=== PATIENT | female | born 1960 | race Caucasian/White ===

== ENCOUNTER 2017-01-01 18:40 | Emergency (ER) | payer MEDICAID ==
[2017-01-01] MEDS: IPRATROPIUM/ALBUTEROL (0.5MG/3MG) NEB INH ONE (19:50)
[2017-01-01 19:54] LABS: BASO % 0.3 % (0-6); EOS % 2.2 % (0-6); GRAN % 68.8 % (47-80); HEMATOCRIT 28.7 % (35.0-47.0); LYMPH % 19.7 % (16-45); MEAN CELL VOLUME 98.6 fl (81-97); MEAN CORPUSCULAR HEMOGLOBIN 30.9 pg (27-33); MEAN CORPUSCULAR HGB CONC 31.4 g/dl (32-36); MEAN PLATELET VOLUME 10.2 fl (7.4-10.4); PLATELET COUNT 320 K/uL (130-400); RED BLOOD COUNT 2.91 M/uL (3.80-5.40); RED CELL DISTRIBUTION WIDTH 13.3 % (11.5-14.5); WHITE BLOOD COUNT W/O DIFF 7.8 K/uL (4.2-12.2)
[2017-01-01] MEDS: METHYLPREDNISOLONE PF 125MG/VIAL IVP ONE (19:59)
[2017-01-01 20:10] LABS: BLOOD UREA NITROGEN 61.5 mg/dL (12.6-42.6)
[2017-01-01 20:12] LABS: INR 5.26; PROTHROMBIN TIME (PATIENT) 57.8 SECONDS (9.5-12.1)
[2017-01-01] MEDS: 0.9 % SODIUM CHLORIDE 1,000 ML BAG IV ONE (20:50)
--- NOTE | 2017-01-01 21:08 | Emergency Department Record ---
History of Present Illness - General Chief Complaint: Cough Stated Complaint: COUGH,DONA Time Seen by Provider: 01/01/17 19:41 Source: Patient Mode of Arrival: Ambulatory Limitations: No limitations - History of Present Illness Initial Comments: pt has been having green productive cough, sob. MD Complaint: Cough, Fever Onset/Timin -: Week(s) Severity: Moderate Severity scale (1-10): 7 Consistency: Intermittent Context: Sick contacts Associated Symptoms: Cough, Shortness of breath - Related Data Previous Rx's Medication Instructions Recorded Albuterol Sulfate [Ventolin Hfa] 1 - 2 puff IH .EVERY 4-6 HOURS PRN 12/03/14 #1 inhaler Cephalexin [Keflex] 500 mg PO TID #20 cap 01/01/17 Prednisone [Prednisone 20Mg] 20 mg PO Q12HR #8 tab 01/01/17 Allergies Allergy/AdvReac Type Severity Reaction Status Date / Time No Known Allergies Allergy PT UNSURE Verified 01/01/17 18:51 OF REACTION Travel Screening - Travel/Exposure Within Last 30 Days Have you traveled within the last 30 days?: No - Travel/Exposure Within Last Year Have you traveled outside the [place] in the last year?: No - Additonal Travel Details Have you been exposed to anyone with a communicable illness?: No - Travel Symptoms Symptom Screening: None Review of Systems Reviewed: No additional complaints except as noted below Constitutional: Reports: As per HPI. Denies: Chills, Fever, Malaise, Night sweats, Weakness, Weight change Eyes: Reports: As per HPI. Denies: Eye discharge, Eye pain, Photophobia, Vision change ENT: Reports: As per HPI. Denies: Congestion, Dental pain, Ear pain, Epistaxis , Hearing loss, Throat pain Respiratory: Reports: As per HPI. Denies: Cough, Dyspnea, Hemoptysis, Stridor, Wheezes Cardiovascular: Reports: As per HPI. Denies: Arrhythmia, Chest pain, Dyspnea on exertion, Edema, Murmurs, Orthopnea, Palpitations, Paroxysmal nocturnal dyspnea, Rheumatic Fever, Syncope Endocrine: Reports: As per HPI. Denies: Fatigue, Heat or cold intolerance, Polydipsia, Polyuria Gastrointestinal: Reports: As per HPI. Denies: Abdominal pain, Constipation, Diarrhea, Hematemesis, Hematochezia, Melena, Nausea, Vomiting Genitourinary: Reports: As per HPI. Denies: Abnormal menses, Discharge, Dyspareunia, Dysuria, Frequency, Hematuria, Incontinence, Retention, Urgency Musculoskeletal: Reports: As per HPI. Denies: Arthralgia, Back pain, Gout, Joint swelling, Myalgia, Neck pain Skin: Reports: As per HPI. Denies: Bruising, Change in color, Change in hair/ nails, Lesions, Pruritus, Rash Neurological: Reports: As per HPI. Denies: Abnormal gait, Confusion, Headache, Numbness, Paresthesias, Seizure, Tingling, Tremors, Vertigo, Weakness Psychiatric: Reports: As per HPI. Denies: Anxiety, Auditory hallucinations, Depression, Homicidal thoughts, Suicidal thoughts, Visual hallucinations Hematological/Lymphatic: Reports: As per HPI. Denies: Anemia, Blood Clots, Easy bleeding, Easy bruising, Swollen glands Past Medical History - SOCIAL HISTORY Smoking Status: Former smoker Alcohol Use: None Drug Use: None - RESPIRATORY Hx Respiratory Disorders: Yes Hx Bronchitis: Yes Hx COPD: Yes - CARDIOVASCULAR Hx Cardio Disorders: Yes Hx Irregular Heartbeat: Yes Comment:: A-Fib - NEURO Hx Neuro Disorders: No - GI Hx GI Disorders: Yes Hx Reflux: Yes - Hx Genitourinary Disorders: No - ENDOCRINE Hx Endocrine Disorders: No - MUSCULOSKELETAL Hx Musculoskeletal Disorders: Yes - PSYCH Hx Psych Problems: Yes Hx Anxiety: Yes Hx Depression: Yes - HEMATOLOGY/ONCOLOGY Hx Hematology/Oncology Disorders: No Family Medical History Any Significant Family History?: Yes Hx Diabetes: Brother/Sister Hx Heart Disease: Mother Physical Exam - General General Appearance: Alert, Oriented x3, Cooperative, Mild distress - Head Head exam: Normal inspection - Eye Eye exam: Normal appearance, PERRL, EOMI Pupils: Normal accommodation - ENT ENT exam: Normal exam, Mucous membranes moist, Normal external ear exam, Normal orophraynx Ear exam: Normal external inspection. negative: External canal tenderness Nasal Exam: Normal inspection. negative: Discharge, Sinus tenderness Mouth exam: Normal external inspection, Tongue normal Teeth exam: Normal inspection. negative: Dental caries Throat exam: Normal inspection. negative: Tonsillar erythema, Tonsillar exudate - Neck Neck exam: Normal inspection, Full ROM. negative: Tenderness - Respiratory Respiratory exam: Normal lung sounds bilaterally. negative: Respiratory distress - Cardiovascular Cardiovascular Exam: Normal rhythm, Normal heart sounds, Tachycardia - GI/Abdominal GI/Abdominal exam: Soft, Normal bowel sounds. negative: Tenderness - Rectal Rectal exam: Deferred - exam: Deferred - Extremities Extremities exam: Normal inspection, Full ROM, Normal capillary refill. negative: Tenderness - Back Back exam: Reports: Normal inspection, Full ROM. Denies: Muscle spasm, Rash noted, Tenderness - Neurological Neurological exam: Alert, CN II-XII intact, Normal gait, Oriented X3 - Psychiatric Psychiatric exam: Normal affect, Normal mood - Skin Skin exam: Dry, Intact, Normal color, Warm Course Vital Signs 01/01/17 01/01/17 01/01/17 18:56 19:36 19:50 Temperature 98.6 F Pulse Rate 126 H 116 H Pulse Rate [ 117 H Director Regulatory Agency ] Respiratory 20 24 16 Rate Blood Pressure 103/82 Blood Pressure 103/71 [Left Arm] Pulse Ox 97 99 99 01/01/17 01/01/17 20:13 20:45 Temperature Pulse Rate Pulse Rate [ 115 H 114 H Director Regulatory Agency ] Respiratory 23 20 Rate Blood Pressure Blood Pressure 99/68 98/66 [Left Arm] Pulse Ox 100 100 Medical Decision Making - Lab Data Result diagrams: 01/01/17 19:05 01/01/17 19:05 Lab Results 01/01/17 01/01/17 01/01/17 Range/Units 19:05 19:05 19:05 WBC 7.8 (4.2-12.2) K/uL RBC 2.91 L (3.80-5.40) M/uL Hgb 9.0 L (11.6-16.0) gm/dl Hct 28.7 L (35.0-47.0) % MCV 98.6 H (81-97) fl MCH 30.9 (27-33) pg MCHC 31.4 L (32-36) g/dl RDW 13.3 (11.5-14.5) % Plt Count 320 (130-400) K/uL MPV 10.2 (7.4-10.4) fl Gran % 68.8 (47-80) % Lymphocytes % 19.7 (16-45) % Monocytes % 9.0 (0-9) % Eosinophils % 2.2 (0-6) % Basophils % 0.3 (0-6) % PT 57.8 H (9.5-12.1) SECONDS INR 5.26 H* Sodium 140 (136-145) mmol/L Potassium 4.3 (3.4-4.5) mmol/L Chloride 99 (98-107) mmol/L Carbon Dioxide 30.0 H (22-29) mmol/L Anion Gap 11.0 (7-16) BUN 61.5 H (12.6-42.6) mg/dL Creatinine 2.0 H (0.5-0.9) mg/dL Estimated GFR 27 mL/min Random Glucose 96 (74-109) mg/dL Calcium 9.2 (8.6-10.0) mg/dL Disposition Disposition: Discharge Clinical Impression: Acute bacterial bronchitis, Renal insufficiency COPD (chronic obstructive pulmonary disease) Qualifiers: COPD type: emphysema Emphysema type: unspecified Qualified Code(s): J43.9 - Emphysema, unspecified Anemia Qualifiers: Anemia type: unspecified type Qualified Code(s): D64.9 - Anemia, unspecified Coumadin toxicity Qualifiers: Encounter type: initial encounter Injury intent: accidental or unintentional Qualified Code(s): T45.511A - Poisoning by anticoagulants, accidental ( unintentional), initial encounter Disposition: Home, Self-Care Condition: (2) Stable Instructions: Acute Bronchitis (ED), COPD (Chronic Obstructive Pulmonary Disease) (ED), Anemia (ED), Chronic Kidney Disease (ED), Warfarin (By mouth) Additional Instructions: do not take coumadin tonight. skip dose. follow up with dr segura in the morning and with [facility]ist. return sooner if worse. have repeat PT in 2 days. Prescriptions: Prednisone [Prednisone 20Mg] 20 mg PO Q12HR #8 tab Cephalexin [Keflex] 500 mg PO TID #20 cap Quality - Quality Measures Quality Measures: N/A - Blood Pressure Screening Does Patient Have Any of the Following: No Blood Pressure Classification: Pre-Hypertensive BP Reading Systolic Measurement: 103 Diastolic Measurement: 82 Screening for High Blood Pressure: < Pre-Hypertensive BP, F/U Documented > [ G8950] Pre-Hypertensive Follow-up Interventions: Referral to alternative/primary care provider.
[2017-01-01] MEDS: CEPHALEXIN 500 MG CAPSULE PO STA (21:50)
--- NOTE | 2017-01-02 14:36 | RADIOLOGY REPORT ---
EXAM: CHEST, TWO VIEWS HISTORY: PRODUCTIVE COUGH AND DYSPNEA FOR THREE DAYS. TECHNIQUE: Two views of the chest were obtained. Comparison: 08/01/07. FINDINGS: The cardiomediastinal silhouette is stable. The lungs and pleural spaces are clear. IMPRESSION: STABLE CHEST EXAMINATION. JOB NUMBER: [id number] MTDD
== END 2017-01-01 22:01 | disposition home or self-care (01) ==
LOC: ER 18:40
DX: T45.515A Adverse effect of anticoagulants, initial encounter (principal); J20.8 Acute bronchitis due to other specified organisms; J43.9 Emphysema, unspecified; D64.9 Anemia, unspecified; R06.02 Shortness of breath; N28.9 Disorder of kidney and ureter, unspecified; I48.91 Unspecified atrial fibrillation; Z87.891 Personal history of nicotine dependence
CPT/HCPCS: 71020; 80048; 85025; 85610; 94640; 96374; 99284; J2930; J7030

== ENCOUNTER 2017-04-10 09:48 | Emergency (ER) | payer MEDICAID ==
--- NOTE | 2017-04-10 10:36 | Emergency Department Record ---
History of Present Illness - General Chief complaint: ENT Stated complaint: SORE THROAT Time Seen by Provider: 04/10/17 10:19 Source: Patient, RN notes reviewed Mode of Arrival: Ambulatory - History of Present Illness Initial comments: productive sputum and cough and was on zpak one week ago and she is on prophlaxic azithromycin every other day by Pulmonary Dr. Freedman. She also saw urgent caret in [place] dec 9 and [facility] one week ago. strep screen and mono spot negative one week ago. Home oxygen 2 litters per minute and stopped smoking about 10 years ago. Onset/Timin -: Week(s) Location: Throat Severity: Moderate Quality: Aching, Sharp Consistency: Constant Worsens with: Swallowing - Related Data Home Medications Medication Instructions Recorded Confirmed Last Taken Budesonide/Formoterol Fumarate 1 puff IH BID 04/10/17 04/10/17 1 Day Ago [Symbicort 160-4.5 Mcg Inhaler] ~04/09/17 Umeclidinium [place] [Incruse 1 puff IH DAILY 04/10/17 04/10/17 1 Day Ago Ellipta] ~04/09/17 Previous Rx's Medication Instructions Recorded Albuterol Sulfate [Ventolin Hfa] 1 - 2 puff IH .EVERY 4-6 HOURS PRN 12/03/14 #1 inhaler Cephalexin [Keflex] 500 mg PO QID #40 cap 04/10/17 Prednisone [Prednisone 10Mg] 10 mg PO ASDIR #30 tab 04/10/17 Allergies Allergy/AdvReac Type Severity Reaction Status Date / Time No Known Allergies Allergy PT UNSURE Verified 04/10/17 10:05 OF REACTION Travel Screening - Travel/Exposure Within Last 30 Days Have you traveled within the last 30 days?: No - Travel/Exposure Within Last Year Have you traveled outside the [place] in the last year?: No - Additonal Travel Details Have you been exposed to anyone with a communicable illness?: No - Travel Symptoms Symptom Screening: None Review of Systems Reviewed: No additional complaints except as noted below Constitutional: Reports: As per HPI. Denies: Chills, Fever, Malaise, Night sweats, Weakness, Weight change Eyes: Reports: As per HPI. Denies: Eye discharge, Eye pain, Photophobia, Vision change ENT: Reports: As per HPI. Denies: Congestion, Dental pain, Ear pain, Epistaxis , Hearing loss, Throat pain Respiratory: Reports: As per HPI. Denies: Cough, Dyspnea, Hemoptysis, Stridor, Wheezes Cardiovascular: Reports: As per HPI. Denies: Arrhythmia, Chest pain, Dyspnea on exertion, Edema, Murmurs, Orthopnea, Palpitations, Paroxysmal nocturnal dyspnea, Rheumatic Fever, Syncope Endocrine: Reports: As per HPI. Denies: Fatigue, Heat or cold intolerance, Polydipsia, Polyuria Gastrointestinal: Reports: As per HPI. Denies: Abdominal pain, Constipation, Diarrhea, Hematemesis, Hematochezia, Melena, Nausea, Vomiting Genitourinary: Reports: As per HPI. Denies: Abnormal menses, Discharge, Dyspareunia, Dysuria, Frequency, Hematuria, Incontinence, Retention, Urgency Musculoskeletal: Reports: As per HPI. Denies: Arthralgia, Back pain, Gout, Joint swelling, Myalgia, Neck pain Skin: Reports: As per HPI. Denies: Bruising, Change in color, Change in hair/ nails, Lesions, Pruritus, Rash Neurological: Reports: As per HPI. Denies: Abnormal gait, Confusion, Headache, Numbness, Paresthesias, Seizure, Tingling, Tremors, Vertigo, Weakness Psychiatric: Reports: As per HPI. Denies: Anxiety, Auditory hallucinations, Depression, Homicidal thoughts, Suicidal thoughts, Visual hallucinations Hematological/Lymphatic: Reports: As per HPI. Denies: Anemia, Blood Clots, Easy bleeding, Easy bruising, Swollen glands Past Medical History - SOCIAL HISTORY Smoking Status: Former smoker Alcohol Use: None Drug Use: None - RESPIRATORY Hx Respiratory Disorders: Yes Hx Bronchitis: Yes Hx COPD: Yes Hx Dyspnea: Yes Hx Pneumonia: Yes - CARDIOVASCULAR Hx Cardio Disorders: Yes Hx Hypertension: Yes Hx Irregular Heartbeat: Yes Comment:: A-Fib - NEURO Hx Neuro Disorders: No - GI Hx GI Disorders: Yes Hx Reflux: Yes - Hx Genitourinary Disorders: No - ENDOCRINE Hx Endocrine Disorders: No - MUSCULOSKELETAL Hx Musculoskeletal Disorders: Yes - PSYCH Hx Psych Problems: Yes Hx Anxiety: Yes Hx Depression: Yes - HEMATOLOGY/ONCOLOGY Hx Hematology/Oncology Disorders: No Family Medical History Any Significant Family History?: Yes Hx Diabetes: Brother/Sister Hx Heart Disease: Mother Physical Exam - General General Appearance: Alert, Oriented x3, Cooperative, Mild distress - Head Head exam: Normal inspection - Eye Eye exam: Normal appearance, PERRL Pupils: Normal accommodation - ENT ENT exam: Normal exam, Mucous membranes moist, Normal external ear exam, Normal orophraynx, TM's normal bilaterally Ear exam: Normal external inspection. negative: External canal tenderness Nasal Exam: Normal inspection. negative: Discharge, Sinus tenderness Mouth exam: Normal external inspection, Tongue normal Teeth exam: Normal inspection. negative: Dental caries Throat exam: Normal inspection. negative: Tonsillar erythema, Tonsillar exudate - Neck Neck exam: Normal inspection, Full ROM. negative: Tenderness - Respiratory Respiratory exam: Normal lung sounds bilaterally. negative: Respiratory distress - Cardiovascular Cardiovascular Exam: Regular rate, Normal rhythm, Normal heart sounds - GI/Abdominal GI/Abdominal exam: Soft, Normal bowel sounds. negative: Tenderness - Rectal Rectal exam: Deferred - exam: Deferred - Extremities Extremities exam: Normal inspection, Full ROM, Normal capillary refill. negative: Tenderness - Back Back exam: Reports: Normal inspection, Full ROM. Denies: Muscle spasm, Rash noted, Tenderness - Neurological Neurological exam: Alert, Normal gait, Oriented X3, Reflexes normal - Psychiatric Psychiatric exam: Normal affect, Normal mood - Skin Skin exam: Dry, Intact, Normal color, Warm Course Vital Signs 04/10/17 09:58 Temperature 97.7 F Pulse Rate 121 H Respiratory 22 Rate Blood Pressure 173/87 Pulse Ox 96 Disposition Clinical Impression: Bronchitis, COPD (chronic obstructive pulmonary disease) with acute bronchitis Disposition: Home, Self-Care Condition: (1) Good Instructions: Acute Bronchitis (ED), COPD (Chronic Obstructive Pulmonary Disease) (ED) Additional Instructions: follow up with primary in one week [place] if worse Prescriptions: Cephalexin [Keflex] 500 mg PO QID #40 cap Prednisone [Prednisone 10Mg] 10 mg PO ASDIR #30 tab Forms: Patient Portal Access Time of Disposition: 11:32 Quality - Quality Measures Quality Measures: N/A - Blood Pressure Screening Does Patient Have Any of the Following: No Blood Pressure Classification: Pre-Hypertensive BP Reading Systolic Measurement: 173 Diastolic Measurement: 87 Screening for High Blood Pressure: < Pre-Hypertensive BP, F/U Documented > [ G8950] Pre-Hypertensive Follow-up Interventions: Referral to alternative/primary care provider. First Hypertensive Follow-up Interventions: Referral to alternative/primary care provider.
[2017-04-10] MEDS ORDERED: PREDNISONE 20 MG TAB PO ONE (11:01)
[2017-04-10] MEDS ORDERED: CEPHALEXIN 500 MG CAPSULE PO STA ×2 (11:01→11:36)
[2017-04-10] MEDS ORDERED: ACETAMINOPHEN 500 MG TABLET PO ONE (11:38)
--- NOTE | 2017-04-11 06:51 | RADIOLOGY REPORT ---
EXAM: CHEST 2 VIEWS HISTORY: WORSENING PRODUCTIVE COUGH. TECHNIQUE: PA and lateral upright views of the chest were obtained. COMPARISON: January 01, 2017. FINDINGS: The heart, mediastinum, and pulmonary vasculature are normal. The lungs are emphysematous. There are no acute infiltrates or effusions. There is no pneumothorax. The bones appear intact. IMPRESSION: 1. STABLE EMPHYSEMATOUS CHANGES. 2. NO ACUTE CHEST PATHOLOGY. JOB NUMBER: [id number] MTDD
== END 2017-04-10 11:49 | disposition home or self-care (01) ==
LOC: ER 09:48
DX: J20.9 Acute bronchitis, unspecified (principal); J44.0 Chronic obstructive pulmonary disease with (acute) lower respiratory infection; I48.91 Unspecified atrial fibrillation; I10 Essential (primary) hypertension; Z87.891 Personal history of nicotine dependence
CPT/HCPCS: 71020; J7512; 99283

== ENCOUNTER 2017-04-17 18:50 | Emergency (ER) | payer MEDICAID ==
--- NOTE | 2017-04-17 19:36 | Emergency Department Record ---
History of Present Illness - General Chief Complaint: Cough Stated Complaint: COUGH,VILLA DONA Time Seen by Provider: 04/17/17 19:34 Source: Patient Mode of Arrival: Ambulatory - History of Present Illness Initial Comments: The patient has been sick with bronchitis since 03-23-17. She was seen and given 10 days of keflex and prednisone of which she has 4 days left. She states she is not better, still is SOB, has night sweats, chills , no fever, but thick green sputum and a "bad cough." She states her ankles are both slightly more swollen than usual. MD Complaint: Cough Onset/Timin -: Month(s) - Related Data Previous Rx's Medication Instructions Recorded Albuterol Sulfate [Ventolin Hfa] 1 - 2 puff IH .EVERY 4-6 HOURS PRN 12/03/14 #1 inhaler Cephalexin [Keflex] 500 mg PO QID #40 cap 04/10/17 Prednisone [Prednisone 10Mg] 10 mg PO ASDIR #30 tab 04/10/17 Allergies Allergy/AdvReac Type Severity Reaction Status Date / Time No Known Allergies Allergy PT UNSURE Verified 04/10/17 10:05 OF REACTION Travel Screening - Travel/Exposure Within Last 30 Days Have you traveled within the last 30 days?: No Review of Systems Reviewed: No additional complaints except as noted below Constitutional: Reports: As per HPI. Denies: Chills, Fever, Malaise, Night sweats, Weakness, Weight change Eyes: Reports: As per HPI. Denies: Eye discharge, Eye pain, Photophobia, Vision change ENT: Reports: As per HPI. Denies: Congestion, Dental pain, Ear pain, Epistaxis , Hearing loss, Throat pain Respiratory: Reports: As per HPI. Denies: Cough, Dyspnea, Hemoptysis, Stridor, Wheezes Cardiovascular: Reports: As per HPI. Denies: Arrhythmia, Chest pain, Dyspnea on exertion, Edema, Murmurs, Orthopnea, Palpitations, Paroxysmal nocturnal dyspnea, Rheumatic Fever, Syncope Endocrine: Reports: As per HPI. Denies: Fatigue, Heat or cold intolerance, Polydipsia, Polyuria Gastrointestinal: Reports: As per HPI. Denies: Abdominal pain, Constipation, Diarrhea, Hematemesis, Hematochezia, Melena, Nausea, Vomiting Genitourinary: Reports: As per HPI. Denies: Abnormal menses, Discharge, Dyspareunia, Dysuria, Frequency, Hematuria, Incontinence, Retention, Urgency Musculoskeletal: Reports: As per HPI. Denies: Arthralgia, Back pain, Gout, Joint swelling, Myalgia, Neck pain Skin: Reports: As per HPI. Denies: Bruising, Change in color, Change in hair/ nails, Lesions, Pruritus, Rash Neurological: Reports: As per HPI. Denies: Abnormal gait, Confusion, Headache, Numbness, Paresthesias, Seizure, Tingling, Tremors, Vertigo, Weakness Psychiatric: Reports: As per HPI. Denies: Anxiety, Auditory hallucinations, Depression, Homicidal thoughts, Suicidal thoughts, Visual hallucinations Hematological/Lymphatic: Reports: As per HPI. Denies: Anemia, Blood Clots, Easy bleeding, Easy bruising, Swollen glands Past Medical History - SOCIAL HISTORY Smoking Status: Former smoker Alcohol Use: None Drug Use: None - RESPIRATORY Hx Respiratory Disorders: Yes Hx Bronchitis: Yes Hx COPD: Yes Hx Dyspnea: Yes Hx Pneumonia: Yes - CARDIOVASCULAR Hx Cardio Disorders: Yes Hx Hypertension: Yes Hx Irregular Heartbeat: Yes Comment:: A-Fib - NEURO Hx Neuro Disorders: No - GI Hx GI Disorders: Yes Hx Reflux: Yes - Hx Genitourinary Disorders: No - ENDOCRINE Hx Endocrine Disorders: No - MUSCULOSKELETAL Hx Musculoskeletal Disorders: Yes - PSYCH Hx Psych Problems: Yes Hx Anxiety: Yes Hx Depression: Yes - HEMATOLOGY/ONCOLOGY Hx Hematology/Oncology Disorders: No Family Medical History Any Significant Family History?: Yes Hx Diabetes: Brother/Sister Hx Heart Disease: Mother Physical Exam - General General Appearance: Alert, Oriented x3, Cooperative, Mild distress (fatigued, breathless speech) - Head Head exam: Normal inspection - Eye Eye exam: Normal appearance, PERRL Pupils: Normal accommodation - ENT ENT exam: Normal exam, Mucous membranes moist, Normal external ear exam, Normal orophraynx, TM's normal bilaterally Ear exam: Normal external inspection. negative: External canal tenderness Nasal Exam: Normal inspection. negative: Discharge, Sinus tenderness Mouth exam: Normal external inspection, Tongue normal Teeth exam: Normal inspection. negative: Dental caries Throat exam: Normal inspection. negative: Tonsillar erythema, Tonsillar exudate - Neck Neck exam: Normal inspection, Full ROM. negative: Lymphadenopathy, Meningismus , Tenderness - Respiratory Respiratory exam: Decreased breath sounds, Prolonged expiratory. negative: Accessory muscle use, Respiratory distress - Cardiovascular Cardiovascular Exam: Normal rhythm, Normal heart sounds, Tachycardia - GI/Abdominal GI/Abdominal exam: Soft, Normal bowel sounds. negative: Tenderness - Rectal Rectal exam: Heme (+) stool (normal brown color, no masses) - exam: Deferred - Extremities Extremities exam: Normal inspection, Full ROM, Normal capillary refill, Pedal edema (trace bilateral). negative: Calf tenderness, Tenderness - Back Back exam: Reports: Normal inspection, Full ROM. Denies: CVA tenderness (R), CVA tenderness (L), Muscle spasm, Rash noted, Tenderness - Neurological Neurological exam: Alert, Normal gait, Oriented X3, Reflexes normal - Psychiatric Psychiatric exam: Normal affect, Normal mood - Skin Skin exam: Dry, Intact, Normal color, Warm Course Vital Signs 04/17/17 19:17 Temperature 97.4 F L Pulse Rate 117 H Respiratory 18 Rate Blood Pressure 157/89 Pulse Ox 95 - Reevaluation(s) Reevaluation #1: DW Dr. Sergio Kenyon at [facility] who accepts patient in transfer for direct admit. Patiient is aware and in agreement. 04/17/17 21:53 Medical Decision Making - Management Options MDM Management: Additional Work-up Planned (e.g. ADM/Transfer/OP Study) ( Transfer to [facility] for direct admit) - Data Complexity MDM Data: Labs Ordered and/or Reviewed, X-Ray Ordered and/or Reviewed (CXR parabronchital thickening consisttent with bronchitis), EKG Ordered and/or Reviewed - Lab Data Result diagrams: 04/17/17 19:35 04/17/17 19:35 - EKG Data -: EKG Interpreted by In EKG: No Acute Changes (Sinus tach at 110, no acute abnormalities.) Disposition Disposition: Transfer Clinical Impression: COPD, frequent exacerbations, Bronchitis, COPD (chronic obstructive pulmonary disease) with acute bronchitis, Renal insufficiency, Elevated LFTs, Guaiac positive stools Anemia Qualifiers: Anemia type: unspecified type Qualified Code(s): D64.9 - Anemia, unspecified Disposition: Acute Care Hospital Transfer Transfer To: [facility] 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 Hill Time Discussed w/Accepting Physician: 21:57 Condition: (2) Stable Quality - Quality Measures Quality Measures: N/A - Blood Pressure Screening Does Patient Have Any of the Following: No Blood Pressure Classification: Pre-Hypertensive BP Reading Systolic Measurement: 157 Diastolic Measurement: 89 Screening for High Blood Pressure: < Pre-Hypertensive BP, F/U Documented > [ G8950] Pre-Hypertensive Follow-up Interventions: Follow-up with rescreen every year.
[2017-04-17] MEDS ORDERED: METHYLPREDNISOLONE PF 125MG/VIAL IVP ONE (19:46)
[2017-04-17] MEDS ORDERED: IPRATROPIUM/ALBUTEROL (0.5MG/3MG) NEB INH ONE (19:46)
[2017-04-17 19:57] LABS: BASO % 0.1 % (0-6); HEMATOCRIT 29.8 % (35.0-47.0); HEMOGLOBIN 8.7 gm/dl (11.6-16.0); LYMPH % 3.7 % (16-45); MEAN CELL VOLUME 103.5 fl (81-97); MEAN CORPUSCULAR HEMOGLOBIN 30.2 pg (27-33); MEAN CORPUSCULAR HGB CONC 29.2 g/dl (32-36); MEAN PLATELET VOLUME 9.6 fl (7.4-10.4); MONO % 3.7 % (0-9); PLATELET COUNT 429 K/uL (130-400); RED BLOOD COUNT 2.88 M/uL (3.80-5.40); RED CELL DISTRIBUTION WIDTH 13.3 % (11.5-14.5); WHITE BLOOD COUNT W/O DIFF 8.2 K/uL (4.2-12.2)
[2017-04-17 20:15] LABS: ALB/GLOB RATIO 1.2 (1.1-1.8); ALBUMIN 4.1 g/dL (4.0-5.0); AST/SGOT 38 U/L (10.0-35.0); BILIRUBIN,TOTAL < 0.20 mg/dL (0.2-1.0); BLOOD UREA NITROGEN 44 mg/dL (6-20); CREATININE 2.2 mg/dL (0.5-0.9); EST GLOMERULAR FILTRATION RATE 24 mL/min; GLUCOSE,RANDOM 142 mg/dL (74-109); TOTAL PROTEIN 7.4 g/dL (6.6-8.7)
[2017-04-17 20:16] LABS: ALKALINE PHOSPHATASE 72 U/L (35-104); ALT/SGPT 51 U/L (<33)
[2017-04-17 20:22] LABS: URINE APPEARANCE CLEAR; URINE BILIRUBIN NEGATIVE (NEGATIVE); URINE BLOOD SMALL (NEGATIVE); URINE COLOR YELLOW; URINE GLUCOSE (UA) NEGATIVE (NEGATIVE); URINE KETONE NEGATIVE (NEGATIVE); URINE LEUKOCYTE ESTERASE NEGATIVE (NEGATIVE); URINE NITRITE NEGATIVE (NEGATIVE); URINE UROBILINOGEN 0.2 E.U./dL (0.20 - 1.00)
[2017-04-17 20:24] LABS: URINE BACTERIA NONE SEEN; URINE EPITHELIAL CELLS 0 - 2 (FEW); URINE WBC 0 - 2 (0-2/hpf)
[2017-04-17] MEDS ORDERED: 0.9 % SODIUM CHLORIDE 500ML 500 ML IV SCH (21:00)
[2017-04-17] MEDS ORDERED: CEFTRIAXONE SODIUM 2 GM in 0.9 % SODIUM CHLORIDE 100ML 100 ML IVPB ONE (21:27)
[2017-04-17] MEDS ORDERED: AZITHROMYCIN 500 MG TABLET PO ONE (21:27)
--- NOTE | 2017-04-18 09:46 | RADIOLOGY REPORT ---
EXAM: CHEST, TWO VIEWS HISTORY: BRONCHITIS. TECHNIQUE: Two views of the chest were obtained. FINDINGS: The cardiomediastinal silhouette is stable. The lungs and pleural spaces are clear. Linear opacity inferolateral right lung likely a skin fold given pulmonary markings extending peripherally. There is peribronchial thickening which can be seen with bronchitis. Moderate degenerative change of the thoracic spine. IMPRESSION: PERIBRONCHIAL THICKENING CONSISTENT WITH BRONCHITIS. JOB NUMBER: [id number] MTDD
== END 2017-04-17 22:45 | disposition short-term general hospital (02) ==
LOC: ER 18:50
DX: J44.1 Chronic obstructive pulmonary disease with (acute) exacerbation (principal); J20.9 Acute bronchitis, unspecified; J44.0 Chronic obstructive pulmonary disease with (acute) lower respiratory infection; R94.5 Abnormal results of liver function studies; R19.5 Other fecal abnormalities; N28.9 Disorder of kidney and ureter, unspecified; R06.00 Dyspnea, unspecified; R51 Headache; I10 Essential (primary) hypertension; I48.91 Unspecified atrial fibrillation; Z87.891 Personal history of nicotine dependence
CPT/HCPCS: 71020; 80053; 81001; 83880; 85027; 85379; 93005; 93010; 94640; 96365; 96375; 99285; J2930

== ENCOUNTER 2017-05-03 19:31 | Emergency (ER) | payer MEDICAID ==
[2017-05-03 20:23] LABS: BASO % 0.1 % (0-6); EOS % 2.2 % (0-6); GRAN % 74.2 % (47-80); HEMATOCRIT 27.4 % (35.0-47.0); LYMPH % 15.8 % (16-45); MEAN CELL VOLUME 105.4 fl (81-97); MEAN CORPUSCULAR HGB CONC 29.2 g/dl (32-36); MEAN PLATELET VOLUME 10.6 fl (7.4-10.4); MONO % 7.7 % (0-9); PLATELET COUNT 240 K/uL (130-400); RED CELL DISTRIBUTION WIDTH 14.5 % (11.5-14.5); WHITE BLOOD COUNT W/O DIFF 7.3 K/uL (4.2-12.2)
[2017-05-03 20:30] LABS: MEAN CORPUSCULAR HEMOGLOBIN 30.7 pg (27-33)
[2017-05-03 20:43] LABS: CREATININE 1.8 mg/dL (0.5-0.9)
[2017-05-03 20:44] LABS: ALBUMIN 3.9 g/dL (4.0-5.0)
[2017-05-03 20:45] LABS: ALB/GLOB RATIO 1.3 (1.1-1.8); BILIRUBIN,TOTAL 0.2 mg/dL (0.2-1.0); TOTAL PROTEIN 6.8 g/dL (6.6-8.7)
[2017-05-03] MEDS: FUROSEMIDE IV 20MG/2ML VIAL IVP ONE (22:44)
--- NOTE | 2017-05-03 22:58 | Emergency Department Record ---
History of Present Illness - General Chief complaint: Swelling of legs Stated complaint: LEG SWELLIN/SHORT OF BREATH Time Seen by Provider: 05/03/17 20:07 Source: Patient Mode of Arrival: Wheelchair Limitations: No limitations - History of Present Illness Initial comments: pt c/o increased swelling in her legs and sob. she was recently admitted to [facility] from here for renal failure. her lasix and hctz were stopped. she also states she just isnt feeling well MD Complaint: Extremity swelling Onset/Timin -: Days(s) History of Same: Yes Improves with: Nothing Worsens with: Nothing Associated Symptoms: Shortness of breath - Related Data Home Medications Medication Instructions Recorded Confirmed Last Taken Acetaminophen 500 mg PO Q6H PRN 05/03/17 05/03/17 Unknown Citalopram Hydrobromide [Celexa] 40 mg PO DAILY 05/03/17 05/03/17 Unknown Ferrous Sulfate [Iron] 325 mg PO DAILY 05/03/17 05/03/17 Unknown Metoprolol Succinate 25 mg PO DAILY 05/03/17 05/03/17 05/03/17 Previous Rx's Medication Instructions Recorded Albuterol Sulfate [Ventolin Hfa] 1 - 2 puff IH .EVERY 4-6 HOURS PRN 12/03/14 #1 inhaler Allergies Allergy/AdvReac Type Severity Reaction Status Date / Time No Known Allergies Allergy PT UNSURE Verified 04/10/17 10:05 OF REACTION Travel Screening - Travel/Exposure Within Last 30 Days Have you traveled within the last 30 days?: No - Travel Symptoms Symptom Screening: Weakness Review of Systems Reviewed: No additional complaints except as noted below Constitutional: Reports: As per HPI, Malaise, Weakness. Denies: Chills, Fever, Night sweats, Weight change Eyes: Reports: As per HPI. Denies: Eye discharge, Eye pain, Photophobia, Vision change ENT: Reports: As per HPI. Denies: Congestion, Dental pain, Ear pain, Epistaxis , Hearing loss, Throat pain Respiratory: Reports: As per HPI, Dyspnea. Denies: Cough, Hemoptysis, Stridor, Wheezes Cardiovascular: Reports: As per HPI. Denies: Arrhythmia, Chest pain, Dyspnea on exertion, Edema, Murmurs, Orthopnea, Palpitations, Paroxysmal nocturnal dyspnea, Rheumatic Fever, Syncope Endocrine: Reports: As per HPI, Fatigue. Denies: Heat or cold intolerance, Polydipsia, Polyuria Gastrointestinal: Reports: As per HPI. Denies: Abdominal pain, Constipation, Diarrhea, Hematemesis, Hematochezia, Melena, Nausea, Vomiting Genitourinary: Reports: As per HPI. Denies: Abnormal menses, Discharge, Dyspareunia, Dysuria, Frequency, Hematuria, Incontinence, Retention, Urgency Musculoskeletal: Reports: As per HPI. Denies: Arthralgia, Back pain, Gout, Joint swelling, Myalgia, Neck pain Skin: Reports: As per HPI. Denies: Bruising, Change in color, Change in hair/ nails, Lesions, Pruritus, Rash Neurological: Reports: As per HPI. Denies: Abnormal gait, Confusion, Headache, Numbness, Paresthesias, Seizure, Tingling, Tremors, Vertigo, Weakness Psychiatric: Reports: As per HPI. Denies: Anxiety, Auditory hallucinations, Depression, Homicidal thoughts, Suicidal thoughts, Visual hallucinations Hematological/Lymphatic: Reports: As per HPI, Easy bruising. Denies: Anemia, Blood Clots, Easy bleeding, Swollen glands Past Medical History - SOCIAL HISTORY Smoking Status: Former smoker - RESPIRATORY Hx Respiratory Disorders: Yes Hx Bronchitis: Yes Hx COPD: Yes Hx Dyspnea: Yes Hx Pneumonia: Yes - CARDIOVASCULAR Hx Cardio Disorders: Yes Hx Hypertension: Yes Hx Irregular Heartbeat: Yes Comment:: A-Fib - NEURO Hx Neuro Disorders: No - GI Hx GI Disorders: Yes Hx Reflux: Yes - Hx Genitourinary Disorders: No - ENDOCRINE Hx Endocrine Disorders: No - MUSCULOSKELETAL Hx Musculoskeletal Disorders: Yes - PSYCH Hx Psych Problems: Yes Hx Anxiety: Yes Hx Depression: Yes - HEMATOLOGY/ONCOLOGY Hx Hematology/Oncology Disorders: No Family Medical History Any Significant Family History?: Yes Hx Diabetes: Brother/Sister Hx Heart Disease: Mother Physical Exam - General General Appearance: Alert, Oriented x3, Cooperative, Mild distress - Head Head exam: Normal inspection - Eye Eye exam: Normal appearance, PERRL, EOMI Pupils: Normal accommodation - ENT ENT exam: Normal exam, Mucous membranes moist, Normal external ear exam, Normal orophraynx Ear exam: Normal external inspection. negative: External canal tenderness Nasal Exam: Normal inspection. negative: Discharge, Sinus tenderness Mouth exam: Normal external inspection, Tongue normal Teeth exam: Normal inspection. negative: Dental caries Throat exam: Normal inspection. negative: Tonsillar erythema, Tonsillar exudate - Neck Neck exam: Normal inspection, Full ROM. negative: Tenderness - Respiratory Respiratory exam: Normal lung sounds bilaterally. negative: Respiratory distress - Cardiovascular Cardiovascular Exam: Regular rate, Normal rhythm, Normal heart sounds - GI/Abdominal GI/Abdominal exam: Soft, Normal bowel sounds. negative: Tenderness - Rectal Rectal exam: Deferred - exam: Deferred - Extremities Extremities exam: Normal inspection, Full ROM, Normal capillary refill, Pedal edema (mild). negative: Tenderness - Back Back exam: Reports: Normal inspection, Full ROM. Denies: Muscle spasm, Rash noted, Tenderness - Neurological Neurological exam: Alert, CN II-XII intact, Normal gait, Oriented X3 - Psychiatric Psychiatric exam: Normal affect, Normal mood - Skin Skin exam: Dry, Intact, Normal color, Warm Course Vital Signs 05/03/17 05/03/17 05/03/17 19:35 21:10 22:16 Temperature 98.0 F 98.3 F Pulse Rate [ 86 100 H 85 Pulse Ox Probe] Respiratory 22 24 18 Rate Blood Pressure 158/102 163/89 [Left Arm] Blood Pressure 152/84 [Right Arm] Pulse Ox 96 100 100 - Reevaluation(s) Reevaluation #1: 05/03/17 23:24 pts renal fxn has improved and all her numbers are improved Medical Decision Making - Lab Data Result diagrams: 05/03/17 19:43 05/03/17 19:43 Lab Results 05/03/17 05/03/17 Range/Units 19:43 19:43 WBC 7.3 (4.2-12.2) K/uL RBC 2.60 L (3.80-5.40) M/uL Hgb 8.0 L (11.6-16.0) gm/dl Hct 27.4 L (35.0-47.0) % MCV 105.4 H (81-97) fl MCH 30.7 (27-33) pg MCHC 29.2 L (32-36) g/dl RDW 14.5 (11.5-14.5) % Plt Count 240 (130-400) K/uL MPV 10.6 H (7.4-10.4) fl Gran % 74.2 (47-80) % Lymphocytes % 15.8 L (16-45) % Monocytes % 7.7 (0-9) % Eosinophils % 2.2 (0-6) % Basophils % 0.1 (0-6) % Sodium 141 (136-145) mmol/L Potassium 4.2 (3.4-4.5) mmol/L Chloride 97 L (98-107) mmol/L Carbon Dioxide 34.0 H (22-29) mmol/L Anion Gap 10.0 (7-16) BUN 33 H (6-20) mg/dL Creatinine 1.8 H (0.5-0.9) mg/dL Estimated GFR 31 mL/min Random Glucose 92 (74-109) mg/dL Calcium 9.4 (8.6-10.0) mg/dL Total Bilirubin 0.20 (0.2-1.0) mg/dL AST 37 H (10.0-35.0) U/L ALT 115 H (<33) U/L Alkaline Phosphatase 93 (35-104) U/L NT-Pro-B Natriuret Pep 1614.00 H (<125) pg/mL Total Protein 6.8 (6.6-8.7) g/dL Albumin 3.9 L (4.0-5.0) g/dL Globulin 2.9 (1.4-4.8) gm/dL Albumin/Globulin Ratio 1.3 (1.1-1.8) Disposition Disposition: Discharge Clinical Impression: Renal insufficiency CHF (congestive heart failure) Qualifiers: Congestive heart failure type: unspecified congestive heart failure type Congestive heart failure chronicity: acute on chronic Qualified Code(s): I50.9 - Heart failure, unspecified Disposition: Home, Self-Care Condition: (1) Good Instructions: Impaired Kidney Function (ED) Additional Instructions: follow up with family doctor. call tomorrow. return sooner if worse. Forms: Patient Portal Access Quality - Quality Measures Quality Measures: N/A - Blood Pressure Screening Does Patient Have Any of the Following: Active Dx of HTN Blood Pressure Classification: Pre-Hypertensive BP Reading Systolic Measurement: 152 Diastolic Measurement: 84 Screening for High Blood Pressure: Patient Exclusion, Hx of HTN [[id number]]
== END 2017-05-03 23:33 | disposition home or self-care (01) ==
LOC: ER 19:31
DX: N28.9 Disorder of kidney and ureter, unspecified (principal); I11.0 Hypertensive heart disease with heart failure; I50.9 Heart failure, unspecified; J44.9 Chronic obstructive pulmonary disease, unspecified; I48.91 Unspecified atrial fibrillation; Z87.891 Personal history of nicotine dependence
CPT/HCPCS: 80053; 83880; 85025; 96374; 99284; J1940

== ENCOUNTER 2017-06-29 18:22 | Inpatient (IN) | payer MEDICAID ==
[2017-06-29] MEDS ORDERED: ALBUTEROL SULFATE (0.083%) 2.5 MG/3 ML NEB INH PRN (19:41)
[2017-06-29] MEDS ORDERED: TRAMADOL HCL 50 MG TABLET PO PRN (20:19)
[2017-06-29] MEDS ORDERED: ACETAMINOPHEN 500 MG TABLET PO PRN (20:21)
[2017-06-29] MEDS ORDERED: ZOLPIDEM TARTRATE 5 MG TABLET PO PRN (20:21)
[2017-06-29] MEDS ORDERED: METHYLPREDNISOLONE PF 125MG/VIAL IVP ONE (20:30)
[2017-06-29] MEDS: LEVOFLOXACIN 500MG IVPB 500 MG/100 ML BAG IVPB SCH (20:35)
[2017-06-29 20:38] LABS: BASO % 0.2 % (0-6); EOS % 2.6 % (0-6); GRAN % 61.4 % (47-80); HEMATOCRIT 32.6 % (35.0-47.0); HEMOGLOBIN 9.7 gm/dl (11.6-16.0); LYMPH % 27.6 % (16-45); MEAN CELL VOLUME 101.6 fl (81-97); MEAN CORPUSCULAR HEMOGLOBIN 30.2 pg (27-33); MEAN CORPUSCULAR HGB CONC 29.8 g/dl (32-36); MEAN PLATELET VOLUME 9.8 fl (7.4-10.4); MONO % 8.2 % (0-9); PLATELET COUNT 291 K/uL (130-400); RED BLOOD COUNT 3.21 M/uL (3.80-5.40); RED CELL DISTRIBUTION WIDTH 13.8 % (11.5-14.5); WHITE BLOOD COUNT W/O DIFF 8.4 K/uL (4.2-12.2)
[2017-06-29 20:49] LABS: BILIRUBIN,TOTAL < 0.20 mg/dL (0.2-1.0); BLOOD UREA NITROGEN 33 mg/dL (6-20); CREATININE 1.7 mg/dL (0.5-0.9); EST GLOMERULAR FILTRATION RATE 33 mL/min
[2017-06-29 20:50] LABS: TOTAL PROTEIN 6.5 g/dL (6.6-8.7)
[2017-06-29 20:52] LABS: GLUCOSE,RANDOM 99 mg/dL (74-109)
[2017-06-29 20:54] LABS: ALB/GLOB RATIO 1.6 (1.1-1.8); ALT/SGPT 20 U/L (<33); AST/SGOT 14 U/L (10.0-35.0)
[2017-06-29 20:55] LABS: ALKALINE PHOSPHATASE 82 U/L (35-104)
[2017-06-29] MEDS: IPRATROPIUM/ALBUTEROL (0.5MG/3MG) NEB INH SCH ×2 (21:15→21:42)
[2017-06-29] MEDS: BUSPIRONE 5 MG TABLET PO SCH (21:52)
[2017-06-29] MEDS: APIXABAN 5MG TABLET PO SCH (21:53)
[2017-06-29] MEDS: METOPROLOL TART 25 MG TABLET PO SCH (21:53)
[2017-06-29] MEDS: ATORVASTATIN 20 MG TABLET PO SCH (21:53)
[2017-06-30] MEDS: IPRATROPIUM/ALBUTEROL (0.5MG/3MG) NEB INH SCH ×6 (01:30→22:10)
[2017-06-30] MEDS: PANTOPRAZOLE SODIUM 40 MG TABLET PO SCH ×2 (06:04→16:23)
[2017-06-30] MEDS ORDERED: DALIRESP 500 MCG PO SCH (10:00)
[2017-06-30] MEDS: APIXABAN 5MG TABLET PO SCH ×2 (10:59→21:48)
[2017-06-30] MEDS: FERROUS SULFATE 325 MG TAB PO SCH (10:59)
[2017-06-30] MEDS: METOPROLOL TART 25 MG TABLET PO SCH ×2 (10:59→21:49)
[2017-06-30] MEDS: BUSPIRONE 5 MG TABLET PO SCH ×2 (10:59→21:47)
[2017-06-30] MEDS: DULOXETINE HCL 30 MG CAPSULE.DR PO SCH (11:00)
--- NOTE | 2017-06-30 11:38 | History & Physical ---
History of Present Illness - Date of Service Date of Service for History & Physical: 06/30/17 - History of Present Illness Admitting Diagnosis: Exacerbation COPD. Flu-like symptoms History of Present Illness: 56yo female with CC of increasing shortness of breath. 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 Patient presented to the [facility] after 2 days of progressive shortness of breath. she had been hospitalized in April for COPD exacerbation and again in May for CHF exacerbation. She reported having increasing cough, productive of small amounts of thin sputum and feeling more short of breath. She was having to use 3L of oxygen compared to her baseline of 2L. While in [facility], she had O2 sat of 91% on 3L with RR of 20. She had a CXR that was negative for acute infiltrate. Rapid influenza test was negative. Due to her history of severe COPD, she was admitted for IV steroids, antibiotics and continued monitoring. 06/30/17- Patient reports feeling better than yesterday but doesn't feel like she is back to her baseline. She denies chest pain, swelling in her legs, productive cough, fever, body aches. reports some mild nasal congestion but no sinus tenderness. She is getting winded easily getting up to the bathroom. She is feeling less short of breath at rest today. 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 Travel Screening - Travel/Exposure Within Last 30 Days Have you traveled within the last 30 days?: No - Travel/Exposure Within Last Year Have you traveled outside the [place] in the last year?: No - Additonal Travel Details Have you been exposed to anyone with a communicable illness?: No - Travel Symptoms Symptom Screening: Fever (GT 100.4), Joint & Muscle Aches, Weakness, Fatigue Review of Systems Constitutional: Denies: Chills, Fever, Malaise, Weakness Eyes: Denies: Eye pain ENT: Reports: Congestion. Denies: Ear pain, Throat pain Respiratory: Reports: Cough, Dyspnea, Wheezes. Denies: Stridor Cardiovascular: Reports: Dyspnea on exertion. Denies: Chest pain, Edema, Palpitations, Paroxysmal nocturnal dyspnea Gastrointestinal: Denies: Diarrhea, Nausea Musculoskeletal: Reports: Back pain (chronic) Skin: Denies: Rash Neurological: Reports: Headache (mild, generalized). Denies: Confusion, Numbness, Paresthesias, Weakness Psychiatric: Reports: Anxiety Hematological/Lymphatic: Reports: Anemia (chronic due to CKD) Past Medical History - SOCIAL HISTORY Smoking Status: Former smoker Alcohol Use: None Drug Use: None - RESPIRATORY Hx Respiratory Disorders: Yes Hx Bronchitis: Yes Hx COPD: Yes Hx Dyspnea: Yes Hx Pneumonia: Yes - CARDIOVASCULAR Hx Cardio Disorders: Yes Hx Hypertension: Yes Hx Irregular Heartbeat: Yes Comment:: A-Fib - NEURO Hx Neuro Disorders: No - GI Hx GI Disorders: Yes Hx Reflux: Yes - Hx Genitourinary Disorders: No - ENDOCRINE Hx Endocrine Disorders: No - MUSCULOSKELETAL Hx Musculoskeletal Disorders: Yes - PSYCH Hx Psych Problems: Yes Hx Anxiety: Yes Hx Depression: Yes - HEMATOLOGY/ONCOLOGY Hx Hematology/Oncology Disorders: No Family Medical History Any Significant Family History?: No Hx Diabetes: Brother/Sister Hx Heart Disease: Mother H&P Meds/Allergies - Allergies Allergies: Allergies Allergy/AdvReac Type Severity Reaction Status Date / Time No Known Allergies Allergy PT UNSURE Unverified 06/29/17 17:04 OF REACTION - Home Medications Home Medications Medication Instructions Recorded Confirmed Last Taken Metoprolol Tartrate 25 mg PO BID 06/30/17 06/30/17 Unknown Tiotropium [place] [Spiriva 2 inh INH DAILY 06/30/17 06/30/17 Unknown Respimat] Tramadol HCl 100 mg PO Q6H PRN 06/30/17 06/30/17 Unknown Previous Rx's Medication Instructions Recorded Albuterol Sulfate [Ventolin Hfa] 1 - 2 puff IH .EVERY 4-6 HOURS PRN 12/03/14 #1 inhaler Guaifenesin [Guaifenesin ER] 1,200 mg PO BID #20 tab.er.12h 07/01/17 Levofloxacin [Levaquin] 500 mg PO DAILY #3 tab 07/01/17 Prednisone [Prednisone 10Mg] 10 mg PO ASDIR #30 tab 07/01/17 - Active Medications Active Medications: Current Medications Acetaminophen (Tylenol 500mg Tab) 500 mg PO Q6H PRN PRN Reason: MILD PAIN/FEVER Albuterol Sulfate () 2.5 mg INH RESP.Q2H PRN PRN Reason: DIFFICULTY IN BREATHING Albuterol/Ipratropium (Duoneb) 3 ml INH RESP.Q4H.WA COUNTS INCLUDE 234 BEDS AT THE [facility] Last Admin: 06/30/17 11:10 Dose: 3 ml Apixaban (Eliquis) 5 mg PO BID COUNTS INCLUDE 234 BEDS AT THE [facility] Last Admin: 06/30/17 10:59 Dose: 5 mg Atorvastatin Calcium (Lipitor) 10 mg PO QHS COUNTS INCLUDE 234 BEDS AT THE [facility] Last Admin: 06/29/17 21:53 Dose: 10 mg Buspirone HCl (Buspar) 7.5 mg PO BID COUNTS INCLUDE 234 BEDS AT THE [facility] Last Admin: 06/30/17 10:59 Dose: 7.5 mg Duloxetine HCl (Cymbalta) 30 mg PO DAILY COUNTS INCLUDE 234 BEDS AT THE [facility] Last Admin: 06/30/17 11:00 Dose: 30 mg Ferrous Sulfate (Iron) 325 mg PO DAILY COUNTS INCLUDE 234 BEDS AT THE [facility] Last Admin: 06/30/17 10:59 Dose: 325 mg Levofloxacin/Dextrose (Levaquin 500mg Ivpb) 500 mg in 100 mls @ 125 mls/hr IVPB Q24H COUNTS INCLUDE 234 BEDS AT THE [facility] Stop: 07/04/17 19:46 Last Infusion: 06/29/17 21:59 Dose: Infused Metoprolol Tartrate (Lopressor) 25 mg PO BID COUNTS INCLUDE 234 BEDS AT THE [facility] Last Admin: 06/30/17 10:59 Dose: 25 mg Pantoprazole Sodium (Protonix) 40 mg PO BIDAC COUNTS INCLUDE 234 BEDS AT THE [facility] Last Admin: 06/30/17 06:04 Dose: 40 mg Patient Own Med: Daliresp ( Roflumilast) 500 Mcg 1 each PO DAILY COUNTS INCLUDE 234 BEDS AT THE [facility] Last Admin: 06/30/17 11:03 Dose: 1 each Tramadol HCl (Ultram) 100 mg PO Q6H PRN PRN Reason: Pain - General Zolpidem Tartrate (Ambien) 10 mg PO QHS PRN PRN Reason: INSOMNIA Physical Exam - Vital Signs Vital Signs: Vital Signs - Last 24 Hrs Temp Pulse Pulse Resp BP BP Pulse Ox 06/30/17 11:17 92 H 24 97 06/30/17 11:16 86 24 97 06/30/17 11:11 90 24 97 06/30/17 11:08 86 24 97 06/30/17 06:02 92 H 16 92 L 06/30/17 06:00 97.8 F 93 H 16 153/59 94 L 06/30/17 01:30 92 H 20 06/29/17 22:00 98.4 F 96 H 16 160/89 96 06/29/17 21:15 102 H 20 06/29/17 19:08 84 18 06/29/17 18:56 97.1 F L 84 18 139/87 97 - General General Appearance: Alert, Oriented x3, Cooperative, No acute distress Limitations: No limitations - Head Head exam: Normal inspection - Eye Eye exam: Normal appearance, PERRL - ENT ENT exam: Normal exam, Mucous membranes moist, Normal external ear exam, Normal orophraynx, TM's normal bilaterally - Neck Neck exam: Normal inspection, Full ROM. negative: Tenderness - Respiratory Respiratory exam: Decreased breath sounds (throughout), Prolonged expiratory, Wheezes (few expiratory wheezes). negative: Respiratory distress - Cardiovascular Cardiovascular Exam: Normal rhythm, Normal heart sounds - GI/Abdominal GI/Abdominal exam: Soft, Normal bowel sounds. negative: Tenderness - Extremities Extremities exam: Normal inspection, Full ROM, Normal capillary refill. negative: Pedal edema, Tenderness - Neurological Neurological exam: Alert, Normal gait, Oriented X3, Reflexes normal - Psychiatric Psychiatric exam: Normal affect, Normal mood Results - Labs Result Diagrams: 06/29/17 20:15 07/01/17 06:10 Labs Last 24 Hours: Laboratory Results - last 24 hr 06/29/17 06/29/17 20:15 20:15 WBC 8.4 RBC 3.21 L Hgb 9.7 L Hct 32.6 L MCV 101.6 H MCH 30.2 MCHC 29.8 L RDW 13.8 Plt Count 291 MPV 9.8 Gran % 61.4 Lymphocytes % 27.6 Monocytes % 8.2 Eosinophils % 2.6 Basophils % 0.2 Sodium 142 Potassium 4.1 Chloride 98 Carbon Dioxide 37.0 H Anion Gap 7.0 BUN 33 H Creatinine 1.7 H Estimated GFR 33 Random Glucose 99 Calcium 9.3 Total Bilirubin < 0.20 L AST 14 ALT 20 Alkaline Phosphatase 82 Total Protein 6.5 L Albumin 4.0 Globulin 2.5 Albumin/Globulin Ratio 1.6 - Imaging and Cardiology Chest x-ray Status: Report reviewed (no acute pathology) VTE H&P Assessment - Risk for VTE Risk for VTE: Yes Risk Level: High Risk Assessment Date: 06/30/17 Risk Assessment Time: 11:00 VTE Orders Placed or Will Be Placed: Yes Plan - Inpatient Certification Inpatient Certification: Admit to inpatient care: Based on my medical assessment, after consideration of patient's risk factors (age, co-morbidities and patient presenting symptoms and acuity), I expect that this patient will remain in the hospital greater than or equal to two midnights and that the services needed warrant inpatient care because: Patient Risk Factors: [age, COPD exacerbation, severe end stage COPD] Estimated length of stay: [48-72H] The patient may reasonably be expected to be discharged or transferred to a hospital within 96 hours after admission to [facility]. Services needed: [IV antibiotics, IV steroids, respiratory therapy ] Post hospital care (if known): [] I certify that my determination is in accordance with my understanding of Medicare requirements for reasonable and necessary inpatient services. 07/01/17 11:16 - Detailed Diagnosis and Plan (1) COPD exacerbation Status: Acute Base Code: J44.1 - CHRONIC OBSTRUCTIVE PULMONARY DISEASE W ( ACUTE) EXACERBATION Comment: 06/30/17- improving. CXr negative for acute infiltrate. WBC count within normal and afebrile. Rapid influenza negative. Respiratory viral panel pending. -continue solumedrol 60mg IV daily -continue levaquin 500mg IV q24H -duoneb q4H [place] -albuterol q2H prn -continuous oxygen to keep sats >92% -vitals q8H (2) CHF (congestive heart failure) Status: Acute Base Code: I50.9 - HEART FAILURE, UNSPECIFIED Comment: 06/30/17 - stable. CXr negative for pulmonary edema. LE without edema. She denies any recent weight gain. -ACEI and diuretics discontinued by nephrology. -monitor weight daily -2000cc fluid restriction (3) Renal insufficiency Status: Acute Base Code: N28.9 - DISORDER OF KIDNEY AND URETER, UNSPECIFIED Comment: 06/30/17- Stable. patient reports seeing her lead man over all dies in [employer] shop last week and gfr was 29, today up to 33. Cr of 1.7. 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 Saw nephrology about 1 week ago and they agreed with conitnuing to hold her metformin unless her egfr was consistetnly >30. BG pretty well controlled. -continue ADA diet -follow up with Dr. Pollard as outpatient for DM (5) Full code status Status: Acute Base Code: Z78.9 - OTHER SPECIFIED HEALTH STATUS Comment: 06/30- patient is full code (6) DVT prophylaxis Status: Acute Base Code: [id number] - Comment: 06/30/17- continue home dose of eliquis 5mg po bid (7) Requires continuous at home supplemental oxygen Status: Acute Base Code: Z99.81 - DEPENDENCE ON SUPPLEMENTAL OXYGEN Comment : 06/30/17- Uses 2L via [place] continuous at home. Has needed 3L to keep sats >92% with exacerbation. -continue to monitor for return to baseline
[2017-06-30] MEDS ORDERED: METHYLPREDNISOLONE PF 125MG/VIAL IVP SCH (15:45)
[2017-06-30] MEDS: LEVOFLOXACIN 500MG IVPB 500 MG/100 ML BAG IVPB SCH (20:15)
[2017-06-30] MEDS: ATORVASTATIN 20 MG TABLET PO SCH (21:48)
[2017-07-01] MEDS: IPRATROPIUM/ALBUTEROL (0.5MG/3MG) NEB INH SCH ×2 (05:59→09:50)
[2017-07-01] MEDS: PANTOPRAZOLE SODIUM 40 MG TABLET PO SCH (06:10)
[2017-07-01 06:40] LABS: CREATININE 1.6 mg/dL (0.5-0.9)
[2017-07-01] MEDS: APIXABAN 5MG TABLET PO SCH (09:23)
[2017-07-01] MEDS: FERROUS SULFATE 325 MG TAB PO SCH (09:23)
[2017-07-01] MEDS: DULOXETINE HCL 30 MG CAPSULE.DR PO SCH (09:23)
[2017-07-01] MEDS: METOPROLOL TART 25 MG TABLET PO SCH (09:24)
[2017-07-01] MEDS: BUSPIRONE 5 MG TABLET PO SCH (09:24)
--- NOTE | 2017-07-01 13:22 | Discharge Summary ---
Providers Discharge Summary Date: 07/01/17 Date of admission: 06/29/17 18:22 Expected Date of Discharge: 07/01/17 Attending physician: DALLIN KELLY Primary care physician: DALLIN KELLY Physical Exam - Vital Signs Vital Signs: Vital Signs - Last 24 Hrs Temp Pulse Pulse Resp BP Pulse Ox 07/01/17 09:00 20 07/01/17 05:59 92 H 16 07/01/17 05:34 97.0 F L 93 H 18 153/92 95 06/30/17 22:10 108 H 18 06/30/17 21:32 97.3 F L 107 H 18 164/93 96 06/30/17 21:00 18 06/30/17 17:38 91 H 19 97 06/30/17 14:15 83 17 95 06/30/17 14:00 97.7 F 89 19 150/76 95 - General General Appearance: Alert, Oriented x3, Cooperative, No acute distress Limitations: No limitations - Head Head exam: Normal inspection Head exam detail: negative: Abrasion, Contusion - Eye Eye exam: Normal appearance, PERRL - ENT ENT exam: Normal exam, Mucous membranes moist, Normal external ear exam, Normal orophraynx, TM's normal bilaterally - Neck Neck exam: Normal inspection, Full ROM. negative: Tenderness - Respiratory Respiratory exam: Decreased breath sounds, Prolonged expiratory. negative: Respiratory distress - Cardiovascular Cardiovascular Exam: Regular rate, Normal rhythm, Normal heart sounds - GI/Abdominal GI/Abdominal exam: Soft, Normal bowel sounds. negative: Tenderness - Extremities Extremities exam: Normal inspection, Full ROM, Normal capillary refill. negative: Pedal edema, Tenderness - Neurological Neurological exam: Alert, Normal gait, Oriented X3, Reflexes normal - Psychiatric Psychiatric exam: Normal affect, Normal mood Hospitalization - Hospitalization Admission Diagnosis: Exacerbation COPD. Flu-like symptoms - Problem List/Discharge Diagnosis (1) COPD exacerbation Status: Acute Base Code: J44.1 - CHRONIC OBSTRUCTIVE PULMONARY DISEASE W ( ACUTE) EXACERBATION Comment: 07/01/17- continues to improve. Patient states she feels much better than yesterday and is able to ambulate to the bathroom and down the leon without difficulty. repiratory viral panel still pending. Patient back to baseline 2L of O2. -plan to discharge home today -continue prednisone taper -continue levaquin 500mg po dailly for 3 more days -nebulizer treatment at home q4H prn sob -continuous oxygen at 2L -mucinex 1200mg po bid as needed for chest congestino -follow up with pulmonology next Monday as scheduled. (2) CHF (congestive heart failure) Status: Acute Base Code: I50.9 - HEART FAILURE, UNSPECIFIED Comment: 07/01/17 - stable. CXr negative for pulmonary edema. LE without edema. -ACEI and diuretics discontinued by nephrology. -monitor weight daily at home while on prednisone. She has scale at home. -hospital discharge follow up apt. scheduled with Molly on (3) Renal insufficiency Status: Acute Base Code: N28.9 - DISORDER OF KIDNEY AND URETER, UNSPECIFIED Comment: 07/01/17- Stable. patient reports seeing her applique sewer last week. -follow up in [facility] family practice next week (4) Full code status Status: Acute Base Code: Z78.9 - OTHER SPECIFIED HEALTH STATUS Comment: 07/01- patient is full code (5) DVT prophylaxis Status: Acute Base Code: [id number] - Comment: 07/01/17- continue home dose of eliquis 5mg po bid (6) Requires continuous at home supplemental oxygen Status: Acute Base Code: Z99.81 - DEPENDENCE ON SUPPLEMENTAL OXYGEN Comment : 07/01/17- Back to baseline of 2L via NC. - Hospitalization Course Disposition: Home, Self-Care Hospital Course: 56yo female with CC of increasing shortness of breath. 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 Patient presented to the [facility] after 2 days of progressive shortness of breath. she had been hospitalized in April for COPD exacerbation and again in May for CHF exacerbation. She reported having increasing cough, productive of small amounts of thin sputum and feeling more short of breath. She was having to use 3L of oxygen compared to her baseline of 2L. While in [facility], she had O2 sat of 91% on 3L with RR of 20. She had a CXR that was negative for acute infiltrate. Rapid influenza test was negative. Due to her history of severe COPD, she was admitted for IV steroids, antibiotics and continued monitoring. 06/30/17- Patient reports feeling better than yesterday but doesn't feel like she is back to her baseline. She denies chest pain, swelling in her legs, productive cough, fever, body aches. reports some mild nasal congestion but no sinus tenderness. She is getting winded easily getting up to the bathroom. She is feeling less short of breath at rest today. She recently saw her applique sewer and was taken off of her ACEI/HCTZ and lasix. 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 07/01/17- Patient states she continues to feel better. She has been up and to the bathroom and took a walk down the hallway without increased shortness of breath. She says yesterday she couldn't do that. She has mild cough that is occasionally productive of thin, white/clear sputum. She denies chest pain, lower extremity swelling, difficulty laying flat. She feels like she is back to her baseline. Procedures: Cardiology Procedures 06/29/17 19:41 Rag Baler .Continuous Abnormal Labs: Abnormal Lab Results 06/29/17 06/29/17 07/01/17 Range/Units 20:15 20:15 06:10 RBC 3.21 L (3.80-5.40) M/uL Hgb 9.7 L (11.6-16.0) gm/dl Hct 32.6 L (35.0-47.0) % MCV 101.6 H (81-97) fl MCHC 29.8 L (32-36) g/dl Potassium 4.9 H (3.4-4.5) mmol/L Chloride 97 L (98-107) mmol/L Carbon Dioxide 37.0 H 34.0 H (22-29) mmol/L BUN 33 H 46 H (6-20) mg/dL Creatinine 1.7 H 1.6 H (0.5-0.9) mg/dL Random Glucose 126 H (74-109) mg/dL Total Bilirubin < 0.20 L (0.2-1.0) mg/dL Total Protein 6.5 L (6.6-8.7) g/dL Condition at Discharge: (2) Stable Discharge Medications - Discharge Medications Prescriptions: Guaifenesin [Guaifenesin ER] 1,200 mg PO BID #20 tab.er.12h Levofloxacin [Levaquin] 500 mg PO DAILY #3 tab Prednisone [Prednisone 10Mg] 10 mg PO ASDIR #30 tab Home Medications: Ambulatory Orders Albuterol Sulfate [Ventolin Hfa] 1 - 2 puff IH .EVERY 4-6 HOURS PRN #1 inhaler 12/03/14 [Last Taken 1 Day Ago ~04/09/17] Roflumilast [Daliresp] 500 mcg PO DAILY tab 08/06/15 [Last Taken 1 Day Ago ~] Budesonide/Formoterol Fumarate [Symbicort 160-4.5 Mcg Inhaler] 1 puff IH BID [Last Taken 1 Day Ago ~04/09/17] Acetaminophen 500 mg PO Q6H PRN 05/03/17 [Last Taken Unknown] Ferrous Sulfate [Iron] 325 mg PO DAILY 05/03/17 [Last Taken Unknown] Metoprolol Tartrate 25 mg PO BID 06/30/17 [Last Taken Unknown] Tiotropium [place] [Spiriva Respimat] 2 inh INH DAILY 06/30/17 [Last Taken Unknown] Tramadol HCl 100 mg PO Q6H PRN 06/30/17 [Last Taken Unknown] Guaifenesin [Guaifenesin ER] 1,200 mg PO BID #20 tab.er.12h 07/01/17 [Last Taken Unknown] Levofloxacin [Levaquin] 500 mg PO DAILY #3 tab 07/01/17 [Last Taken Unknown] Prednisone [Prednisone 10Mg] 10 mg PO ASDIR #30 tab 07/01/17 [Last Taken Unknown ] Discharge Plan - Discharge Instructions Activity at Discharge: Wear Oxygen At All Times Diet at Discharge: Diabetic Diet Instructions: COPD (Chronic Obstructive Pulmonary Disease) (DC) Additional Instructions: Follow up with [facility] Inspector and Molly in [facility] family practice as scheduled. Continue Levaquin 500mg by mouth once daily. Your next dose is due tonight Continue Prednisone taper instructions. Your next dose will be due this afternoon May use Mucinex 1200mg by mouth twice daily for chest congestion Please call with any questions or concerns Return to ED for any new or worsening symptoms Quality Measures - Quality Measures Quality Measures: Documentation of Current Medications in Medical Record, Heart Failure, Screening for High Blood Pressure and F/U Documented - Current Medications Quality Measure: Measure #130: Documentation of Current Medications Documentation of Current Medications: <Current Medications Documented/Reviewed> [G8427] - Blood Pressure Screening Quality Measure: Screening for High Blood Pressure and Follow-Up Documented Does Patient Have Any of the Following: Active Dx of HTN Blood Pressure Classification: Hypertensive Reading Systolic Measurement: 150 Diastolic Measurement: 90 Screening for High Blood Pressure: Patient Exclusion, Hx of HTN [G9744] - Heart Failure (MABEL/ARB Therapy) Quality Measure: Heart Failure Left Ventricular Systolic Function: Unknown MABEL Inhibitor or ARB Therapy for LVSD: Not Eligible - Heart Failure (Beta-fletcher Therapy) Quality Measure: Heart Failure Left Ventricular Systolic Function: Unknown Beta-Fletcher Therapy for LVEF < 40%: Not Eligible - Elder Abuse Suspicion Index EASI Reference Information: Ramses WEN, Jaye C, Kanchan D, Alicia Harrington.Development and validation of a tool to assist physicians identification of elder abuse: The Elder Abuse Suspicion Index (EASI ). Journal of Elder Abuse and Neglect, 2008; 20 (3): 276-300.
== END 2017-07-01 14:14 | disposition home or self-care (01) | DRG 191 ==
LOC: MEDSURG 18:22
PROVIDERS: ADMIT Internal Medicine; ATTEND Internal Medicine
DX: J44.1 Chronic obstructive pulmonary disease with (acute) exacerbation (principal); N18.4 Chronic kidney disease, stage 4 (severe); I50.9 Heart failure, unspecified; I48.2 Chronic atrial fibrillation; E11.22 Type 2 diabetes mellitus with diabetic chronic kidney disease; D63.1 Anemia in chronic kidney disease; Z79.01 Long term (current) use of anticoagulants; I10 Essential (primary) hypertension; F41.9 Anxiety disorder, unspecified; Z99.81 Dependence on supplemental oxygen; Z87.891 Personal history of nicotine dependence
CPT/HCPCS: 71046; 80048; 80053; 82728; 83550; 85025; 94640; 94761; 99223; 99239; J1956; J2930

== ENCOUNTER 2017-10-07 12:41 | Emergency (ER) | payer MEDICAID | END 2017-10-07 15:10 | disposition left against medical advice (07) | LOC: ER 12:41 | DX: Z53.20 Procedure and treatment not carried out because of patient's decision for unspecified reasons (principal) ==

== ENCOUNTER 2018-01-22 19:22 | Emergency (ER) | payer MEDICAID ==
[2018-01-22] MEDS ORDERED: ONDANSETRON HCL IV 4 MG/2 ML VIAL IVP ONE (19:52)
--- NOTE | 2018-01-22 19:58 | Emergency Department Record ---
History of Present Illness - General Chief complaint: Nausea, Vomiting, Diarrhea Stated complaint: VOMITTING Time Seen by Provider: 01/22/18 19:51 Source: Patient Mode of Arrival: Ambulatory Limitations: No limitations - History of Present Illness Initial comments: 57 yo female presents to ED for evaluation of nausea symptoms and feeling very drowsy following recent partial nephrectomy for renal cancer, was released from [facility] 4 days ago. Patient reports that she called her on-call surgery to explain that she believes her pain medication (Oxycontin) is making her feel ill and drowsy, patient was instructed to come to the ED to ensure that her bowels were not "obstructed". Patient report mild abdominal pain symptoms and vomiting, denies fevers, chills, cough, or dysuria symptoms. MD complaint: Nausea, Vomiting Onset/Timin -: Days(s) Associated Abdominal Pain: Yes Location: Diffuse Radiation: None Severity: Mild Quality: Cramping Consistency: Intermittent Improves with: None Worsens with: Other (Taking her pain medication) Context: Recent surgery/procedure Associated Symptoms: Denies other symptoms - Related Data Home Medications Medication Instructions Recorded Confirmed Last Taken Cholecalciferol (Vitamin D3) 2,000 unit PO DAILY 01/22/18 01/22/18 1 Day Ago [Vitamin D3] ~01/21/18 Multivitamin [Multi-Vitamin Daily] 1 each PO DAILY 01/22/18 01/22/18 Unknown Oxycodone HCl 5 mg PO QID PRN 01/22/18 01/22/18 1 Day Ago ~01/21/18 Previous Rx's Medication Instructions Recorded Albuterol Sulfate [Ventolin Hfa] 1 - 2 puff IH .EVERY 4-6 HOURS PRN 12/03/14 #1 inhaler Ondansetron [Zofran Odt] 4 mg PO Q6H PRN #15 tab.rapdis 01/22/18 Allergies Allergy/AdvReac Type Severity Reaction Status Date / Time No Known Drug Allergies Allergy Verified 01/22/18 19:56 Review of Systems Constitutional: Denies: Chills, Fever, Malaise, Night sweats Eyes: Denies: Eye discharge, Eye pain ENT: Denies: Congestion, Dental pain, Ear pain Respiratory: Denies: Cough, Dyspnea Cardiovascular: Denies: Chest pain, Dyspnea on exertion Endocrine: Denies: Fatigue, Heat or cold intolerance Gastrointestinal: Reports: Abdominal pain, Nausea, Vomiting. Denies: Constipation Genitourinary: Denies: Incontinence, Retention Musculoskeletal: Reports: Back pain (Post-surgical pain). Denies: Arthralgia Skin: Denies: Bruising, Change in color Neurological: Denies: Abnormal gait, Confusion, Headache, Seizure Psychiatric: Denies: Anxiety Hematological/Lymphatic: Denies: Anemia, Blood Clots Past Medical History - SOCIAL HISTORY Smoking Status: Former smoker Drug Use: None - RESPIRATORY Hx Respiratory Disorders: Yes Hx Bronchitis: Yes Hx COPD: Yes Hx Dyspnea: Yes Hx Pneumonia: Yes - CARDIOVASCULAR Hx Cardio Disorders: Yes Hx Hypertension: Yes Hx Irregular Heartbeat: Yes Comment:: A-Fib - NEURO Hx Neuro Disorders: No - GI Hx GI Disorders: Yes Hx Reflux: Yes - Hx Genitourinary Disorders: No - ENDOCRINE Hx Endocrine Disorders: No - MUSCULOSKELETAL Hx Musculoskeletal Disorders: Yes - PSYCH Hx Psych Problems: Yes Hx Anxiety: Yes Hx Depression: Yes - HEMATOLOGY/ONCOLOGY Hx Hematology/Oncology Disorders: No Family Medical History Hx Diabetes: Brother/Sister Hx Heart Disease: Mother Physical Exam - General General Appearance: Alert, Oriented x3, Cooperative, Moderate distress Limitations: No limitations - Head Head exam: Atraumatic, Normocephalic, Normal inspection Head exam detail: negative: Abrasion, Contusion, Rebolledo's sign, General tenderness, Hematoma, Laceration - Eye Eye exam: Normal appearance. negative: Conjunctival injection, Periorbital swelling, Periorbital tenderness, Scleral icterus - ENT Ear exam: negative: Auricular hematoma, Auricular trauma Nasal Exam: negative: Active bleeding, Discharge, Dried blood, Foreign body Mouth exam: negative: Drooling, Laceration, Muffled voice, Tongue elevation - Neck Neck exam: Normal inspection. negative: Meningismus, Tenderness - Respiratory Respiratory exam: Normal lung sounds bilaterally. negative: Rales, Respiratory distress, Rhonchi, Stridor - Cardiovascular Cardiovascular Exam: Regular rate, Normal rhythm, Normal heart sounds - GI/Abdominal GI/Abdominal exam: Soft, Tenderness (Mild, diffuse TTP, no rebound, guarding, or peritoneal signs are present on examination.). negative: Rebound, Rigid - Rectal Rectal exam: Deferred - exam: Deferred - Extremities Extremities exam: Normal inspection. negative: Pedal edema, Tenderness - Back Back exam: Reports: CVA tenderness (L), Other (Niraj present left flank, no surrounding erythema present, no clinical signs of infection are present.). Denies: CVA tenderness (R) - Neurological Neurological exam: Alert, Normal gait, Oriented X3 - Psychiatric Psychiatric exam: Normal affect, Normal mood - Skin Skin exam: Normal color. negative: Abrasion Type of lesion: negative: abrasion Course - Reevaluation(s) Reevaluation #1: 01/22/18 20:58 Laboratory studies were reviewed: BUN 35/Creatinine 2.1 (at baseline for the patient) Hgb 9.8 UA reviewed: 36-50 RBCs 3-5 WBCs 3-5 Epithelial cells Few bacteria Reevaluation #2: 01/22/18 22:12 CT Abdomen and Pelvis: Post-surgical changes to the left kiney Soft-tissue nodularity left kidney c/w residual tumor vs. hematoma No hydronephrosis Interval repair of umbilical hernia. Patient and her SO were updated on all results thus far, reports significant improvement in her nausea/vomiting symptoms, tolerating PO currently. Dr. Interiano paged at [facility] for consultation. Reevaluation #3: 01/22/18 23:39 Third page sent to [facility] for consultation with the patient's surgeon. Reevaluation #4: 01/23/18 00:04 Patient was reassessed, she has eaten crackers, tolerating PO, and reports that her symptoms are overall significantly improved. Will continue to get in touch with the patient's surgeon, however the patient reports that she is ready to go home at this time. Reevaluation #5: 01/23/18 02:02 No return call from the patient's surgeon as of yet. Will continue to reach the on-call provider through the night. Medical Decision Making - Lab Data Result diagrams: 01/22/18 20:26 01/22/18 20:26 Disposition Disposition: Discharge Clinical Impression: Post-operative nausea and vomiting, Renal neoplasm Disposition: Home, Self-Care Condition: (2) Stable Instructions: Acute Nausea and Vomiting (ED) Additional Instructions: Return to ED if your symptoms worsen or if you have any concerns. Zofran as directed. Follow-up with Dr. Interiano in 1-3 days as directed. Prescriptions: Ondansetron [Zofran Odt] 4 mg PO Q6H PRN #15 tab.rapdis PRN Reason: Nausea/Vomiting Forms: Patient Portal Access Time of Disposition: 00:05 Quality - Quality Measures Quality Measures: N/A - Blood Pressure Screening Does Patient Have Any of the Following: No Blood Pressure Classification: Hypertensive Reading Systolic Measurement: 165 Diastolic Measurement: 100 Screening for High Blood Pressure: < First Hypertensive BP, F/U Documented > [ G8950] First Hypertensive Follow-up Interventions: Referral to alternative/primary care provider.
[2018-01-22] MEDS ORDERED: 0.9 % SODIUM CHLORIDE 1000ML 1,000 ML IV SCH (20:00)
[2018-01-22 20:46] LABS: URINE APPEARANCE SL CLOUDY; URINE BILIRUBIN NEGATIVE (NEGATIVE); URINE BLOOD LARGE (NEGATIVE); URINE COLOR YELLOW; URINE GLUCOSE (UA) NEGATIVE (NEGATIVE); URINE KETONE NEGATIVE (NEGATIVE); URINE LEUKOCYTE ESTERASE SMALL (NEGATIVE); URINE NITRITE NEGATIVE (NEGATIVE); URINE UROBILINOGEN 0.2 E.U./dL (0.20 - 1.00)
[2018-01-22 20:46] LABS: BASO % 0.4 % (0-6); EOS % 2.6 % (0-6); GRAN % 60.7 % (47-80); HEMATOCRIT 32.8 % (35.0-47.0); HEMOGLOBIN 9.8 gm/dl (11.6-16.0); LYMPH % 27.9 % (16-45); MEAN CELL VOLUME 104.5 fl (81-97); MEAN CORPUSCULAR HEMOGLOBIN 31.2 pg (27-33); MEAN CORPUSCULAR HGB CONC 29.9 g/dl (32-36); MEAN PLATELET VOLUME 9.6 fl (7.4-10.4); MONO % 8.4 % (0-9); PLATELET COUNT 337 K/uL (130-400); RED BLOOD COUNT 3.14 M/uL (3.80-5.40); RED CELL DISTRIBUTION WIDTH 12.8 % (11.5-14.5); WHITE BLOOD COUNT W/O DIFF 4.6 K/uL (4.2-12.2)
[2018-01-22 20:54] LABS: URINE RBC 36 - 50 (NONE SEEN)
[2018-01-22 20:54] LABS: BILIRUBIN,TOTAL < 0.20 mg/dL (0.2-1.0); BLOOD UREA NITROGEN 35 mg/dL (6-20); CREATININE 2.1 mg/dL (0.5-0.9); EST GLOMERULAR FILTRATION RATE 26 mL/min; TOTAL PROTEIN 6.7 g/dL (6.6-8.7)
[2018-01-22 20:55] LABS: URINE BACTERIA FEW
[2018-01-22 20:56] LABS: GLUCOSE,RANDOM 100 mg/dL (74-109)
[2018-01-22 20:59] LABS: ALB/GLOB RATIO 1.2 (1.1-1.8); ALBUMIN 3.6 g/dL (4.0-5.0); ALKALINE PHOSPHATASE 121 U/L (35-104); ALT/SGPT 29 U/L (<33); AST/SGOT 12 U/L (10.0-35.0); LIPASE 29 U/L (13-60)
== END 2018-01-23 00:10 | disposition home or self-care (01) ==
LOC: ER 19:22
DX: R11.2 Nausea with vomiting, unspecified (principal); R19.7 Diarrhea, unspecified; C64.9 Malignant neoplasm of unspecified kidney, except renal pelvis; I48.91 Unspecified atrial fibrillation; J44.9 Chronic obstructive pulmonary disease, unspecified; I10 Essential (primary) hypertension; Z90.5 Acquired absence of kidney; Z87.891 Personal history of nicotine dependence
CPT/HCPCS: 99284 ×2; 96374; 96361; 83690; 85025; 80053; 81001; 74176; J2405; J7030

== ENCOUNTER 2018-07-08 14:04 | Inpatient (IN) | payer MEDICAID ==
[2018-07-08] MEDS ORDERED: IPRATROPIUM/ALBUTEROL (0.5MG/3MG) NEB INH ONE (15:01)
[2018-07-08] MEDS ORDERED: ALBUTEROL SULFATE (0.083%) 2.5 MG/3 ML NEB INH ONE ×2 (15:25→16:35)
[2018-07-08] MEDS ORDERED: METHYLPREDNISOLONE PF 125MG/VIAL IVP ONE (15:25)
--- NOTE | 2018-07-08 15:31 | Emergency Department Record ---
History of Present Illness - General Chief Complaint: Cough Stated Complaint: VOMITING,COUGH,DONA Time Seen by Provider: 07/08/18 15:18 Source: Patient Mode of Arrival: Ambulatory Limitations: No limitations - History of Present Illness Initial Comments: The patient is here due to a 2 weeks hx of cough and congestion with mild wheezing and SOB. She did see her PCP 11 days ago and was placed on oral steroids but now is out of them. The cough and wheezing have persisted and not gotten any better. The patient does have an appointment with her PCP in 3 days but felt she could not wait. She does have a hx of significant COPD and is on 2L of home O2. MD Complaint: Cough, Nasal congestion, Rhinorrhea Onset/Timin -: Week(s) - Related Data Previous Rx's Medication Instructions Recorded Albuterol Sulfate [Ventolin Hfa] 1 - 2 puff IH .EVERY 4-6 HOURS PRN 12/03/14 #1 inhaler Allergies Allergy/AdvReac Type Severity Reaction Status Date / Time No Known Drug Allergies Allergy Unverified 04/03/18 11:11 Travel Screening - Travel/Exposure Within Last 30 Days Have you traveled within the last 30 days?: No - Travel/Exposure Within Last Year Have you traveled outside the [place] in the last year?: No - Additonal Travel Details Have you been exposed to anyone with a communicable illness?: No - Travel Symptoms Symptom Screening: None Review of Systems Constitutional: Denies: Chills, Fever Eyes: Denies: Eye discharge ENT: Reports: Congestion Respiratory: Reports: Cough, Dyspnea. Denies: Hemoptysis Cardiovascular: Denies: Chest pain Endocrine: Reports: Fatigue Gastrointestinal: Denies: Nausea Genitourinary: Denies: Dysuria Musculoskeletal: Denies: Back pain Skin: Denies: Bruising Past Medical History - SOCIAL HISTORY Smoking Status: Former smoker Alcohol Use: None Drug Use: None - RESPIRATORY Hx Respiratory Disorders: Yes Hx Bronchitis: Yes Hx COPD: Yes Hx Dyspnea: Yes Hx Pneumonia: Yes - CARDIOVASCULAR Hx Cardio Disorders: Yes Hx Hypertension: Yes Hx Irregular Heartbeat: Yes Comment:: A-Fib - NEURO Hx Neuro Disorders: No - GI Hx GI Disorders: Yes Hx Reflux: Yes - Hx Genitourinary Disorders: No Comment:: left renal mass - ENDOCRINE Hx Endocrine Disorders: No - MUSCULOSKELETAL Hx Musculoskeletal Disorders: Yes - PSYCH Hx Psych Problems: Yes Hx Anxiety: Yes Hx Depression: Yes - HEMATOLOGY/ONCOLOGY Hx Hematology/Oncology Disorders: No Family Medical History Any Significant Family History?: No Hx Diabetes: Brother/Sister Hx Heart Disease: Mother Physical Exam - General General Appearance: Alert, Oriented x3, Cooperative, No acute distress - Head Head exam: Atraumatic, Normocephalic, Normal inspection - Eye Eye exam: Normal appearance, PERRL, EOMI - ENT Throat exam: Normal inspection. negative: Tonsillar erythema, Tonsillar exudate - Neck Neck exam: Normal inspection, Full ROM. negative: Tenderness - Respiratory Respiratory exam: Wheezes (bilaterally in all lung kimble.). negative: Normal lung sounds bilaterally, Respiratory distress - Cardiovascular Cardiovascular Exam: Regular rate, Normal rhythm, Normal heart sounds - GI/Abdominal GI/Abdominal exam: Soft, Normal bowel sounds. negative: Tenderness - Extremities Extremities exam: Normal inspection, Full ROM, Normal capillary refill. negative: Tenderness - Neurological Neurological exam: Alert, Normal gait. negative: Abnormal gait, Motor sensory deficit - Psychiatric Psychiatric exam: negative: Anxious Course Vital Signs 07/08/18 07/08/18 14:41 15:04 Temperature 98.2 F Pulse Rate 77 76 Respiratory 18 18 Rate Blood Pressure 114/79 Pulse Ox 96 99 - Reevaluation(s) Reevaluation #1: The patient is doing better at this time but is still coughing, SOB and wheezing. Due to that fact I did recommend hospital admission and the patient did agree. I then did discuss the case with Sophia (RN DOCUMENTATION) and she did accept the admission for Dr. Pollard. 07/08/18 17:00 Medical Decision Making - Data Complexity MDM Data: Labs Ordered and/or Reviewed, X-Ray Ordered and/or Reviewed - Lab Data Result diagrams: 07/08/18 15:42 07/08/18 15:42 - Radiology Data Radiology results: Report reviewed (CXR: Neg. ) Disposition Disposition: Admit Clinical Impression: COPD exacerbation Disposition: Still a Patient at [facility] Return To Work/School Note Provided: No Decision to Admit: Admit from ER Decision to Admit Date: 07/08/18 Decision to Admit Time: 17:03 Accepting Physician: Atul Time Discussed w/Accepting Physician: 17:03 Condition: (2) Stable Time of Disposition: 17:04 Quality - Quality Measures Quality Measures: N/A - Blood Pressure Screening View Details: Yes Does Patient Have Any of the Following: No Blood Pressure Classification: Hypertensive Reading Systolic Measurement: 123 Diastolic Measurement: 90 Screening for High Blood Pressure: < First Hypertensive BP, F/U Documented > [ G8950] First Hypertensive Follow-up Interventions: Referral to alternative/primary care provider.
[2018-07-08 15:46] LABS: HEMATOCRIT 32.5 % (35.0-47.0); HEMOGLOBIN 10.2 gm/dl (11.6-16.0); MEAN CELL VOLUME 103.2 fl (81-97); MEAN CORPUSCULAR HGB CONC 31.4 g/dl (32-36); MEAN PLATELET VOLUME 10.2 fl (7.4-10.4); PLATELET COUNT 182 K/uL (130-400); RED BLOOD COUNT 3.15 M/uL (3.80-5.40); RED CELL DISTRIBUTION WIDTH 12.5 % (11.5-14.5)
[2018-07-08 15:47] LABS: MEAN CORPUSCULAR HEMOGLOBIN 32.3 pg (27-33)
[2018-07-08 15:55] LABS: CREATININE 2.7 mg/dL (0.5-0.9)
[2018-07-08 15:59] LABS: PROTHROMBIN TIME (PATIENT) 10.3 SECONDS (9.5-12.1)
[2018-07-08 16:22] LABS: C-REACTIVE PROTEIN 6.77 mg/dL (<0.5)
[2018-07-08] MEDS ORDERED: CEFTRIAXONE 1GM/50ML BAG 1 GM/50 ML BAG IVPB ONE (16:23)
[2018-07-08] MEDS ORDERED: AZITHROMYCIN 500 MG in 0.9 % SODIUM CHLORIDE 250ML 250 ML IVPB SCH (18:07)
[2018-07-08] MEDS ORDERED: DULOXETINE HCL 30 MG CAPSULE.DR PO SCH (18:07)
[2018-07-08] MEDS: IPRATROPIUM/ALBUTEROL (0.5MG/3MG) NEB INH SCH ×2 (18:11→21:31)
[2018-07-08] MEDS ORDERED: ZOLPIDEM TARTRATE 5 MG TABLET PO PRN (18:48)
[2018-07-08] MEDS: CEFTRIAXONE SODIUM 1 GM in 0.9 % SODIUM CHLORIDE 100ML 100 ML IVPB SCH (19:26)
[2018-07-08] MEDS: 0.9 % SODIUM CHLORIDE 1000ML 1,000 ML IV PRN (19:43)
[2018-07-08] MEDS: LISINOPRIL 20 MG TABLET PO SCH (19:44)
[2018-07-08] MEDS: TOPIRAMATE 25MG TABLET PO SCH ×2 (19:44→22:02)
[2018-07-08] MEDS: BUSPIRONE 5 MG TABLET PO SCH ×2 (19:44→21:29)
[2018-07-08] MEDS: DALIRESP 500 MCG MC SCH (19:45)
[2018-07-08 19:47] LABS: INFLUENZA A POSITIVE (NEGATIVE); INFLUENZA B NEGATIVE (NEGATIVE)
[2018-07-08] MEDS: APIXABAN 5MG TABLET PO SCH (22:02)
[2018-07-08] MEDS: METOPROLOL TART 25 MG TABLET PO SCH (22:02)
[2018-07-08] MEDS: ATORVASTATIN 20 MG TABLET PO SCH (22:02)
[2018-07-08] MEDS: OSTELTAMIVIR 75 MG CAP PO SCH (22:02)
[2018-07-09] MEDS: IPRATROPIUM/ALBUTEROL (0.5MG/3MG) NEB INH SCH ×4 (04:46→18:04)
[2018-07-09] MEDS: PANTOPRAZOLE SODIUM 40 MG TABLET PO SCH ×2 (06:08→16:01)
[2018-07-09] MEDS: CEFTRIAXONE SODIUM 1 GM in 0.9 % SODIUM CHLORIDE 100ML 100 ML IVPB SCH (06:09)
[2018-07-09 06:55] LABS: MEAN CELL VOLUME 103.8 fl (81-97); MEAN CORPUSCULAR HEMOGLOBIN 31.1 pg (27-33); MEAN PLATELET VOLUME 9.9 fl (7.4-10.4); PLATELET COUNT 162 K/uL (130-400); RED BLOOD COUNT 2.89 M/uL (3.80-5.40); RED CELL DISTRIBUTION WIDTH 12.3 % (11.5-14.5); WHITE BLOOD COUNT W/O DIFF 5.5 K/uL (4.2-12.2)
[2018-07-09 07:13] LABS: ALB/GLOB RATIO 1.3 (1.1-1.8); ALBUMIN 3.4 g/dL (4.0-5.0); ALKALINE PHOSPHATASE 85 U/L (35-104); ALT/SGPT 14 U/L (<33); AST/SGOT 12 U/L (10.0-35.0); BILIRUBIN,TOTAL < 0.20 mg/dL (0.2-1.0); BLOOD UREA NITROGEN 42 mg/dL (6-20); CREATININE 2.5 mg/dL (0.5-0.9); EST GLOMERULAR FILTRATION RATE 21 mL/min; GLUCOSE,RANDOM 119 mg/dL (74-109); TOTAL PROTEIN 6.1 g/dL (6.6-8.7)
--- NOTE | 2018-07-09 07:30 | RADIOLOGY REPORT ---
EXAM: CHEST, TWO VIEWS HISTORY: COUGH, DIFFICULTY BREATHING. TECHNIQUE: Two views of the chest were obtained. Comparison: Chest radiograph 06/27/18. FINDINGS: The cardiac silhouette is within normal size limits. No focal pulmonary consolidation. No pleural effusion or pneumothorax. IMPRESSION: NO ACUTE LUNG FINDINGS. JOB NUMBER: [id number] MTDD
[2018-07-09] MEDS: 0.9 % SODIUM CHLORIDE 1000ML 1,000 ML IV PRN (08:25)
[2018-07-09] MEDS: OXYCODONE HCL 5 MG TABLET PO PRN (09:29)
[2018-07-09] MEDS: FERROUS SULFATE 325 MG TAB PO SCH (09:29)
[2018-07-09] MEDS: BUSPIRONE 5 MG TABLET PO SCH ×2 (09:29→21:45)
[2018-07-09] MEDS: APIXABAN 5MG TABLET PO SCH ×2 (09:29→21:45)
[2018-07-09] MEDS: DULOXETINE HCL 30 MG CAPSULE.DR PO SCH (09:30)
[2018-07-09] MEDS: OSTELTAMIVIR 75 MG CAP PO SCH ×2 (09:30→21:45)
[2018-07-09] MEDS: METHYLPREDNISOLONE PF 125MG/VIAL IVP SCH (09:31)
[2018-07-09] MEDS: METOPROLOL TART 25 MG TABLET PO SCH ×2 (09:31→21:45)
[2018-07-09] MEDS: DALIRESP 500 MCG MC SCH (09:31)
[2018-07-09] MEDS: TOPIRAMATE 25MG TABLET PO SCH ×2 (09:31→21:46)
[2018-07-09] MEDS ORDERED: UMECLIDINIUM BROMIDE (INCRUSE) 62.5MCG IH SCH (10:00)
[2018-07-09] MEDS ORDERED: DULOXETINE HCL 30 MG CAPSULE.DR PO SCH (10:00)
[2018-07-09] MEDS ORDERED: HYDRALAZINE 20MG/ML VIAL IV PRN (10:25)
--- NOTE | 2018-07-09 10:27 | History & Physical ---
History of Present Illness - Date of Service Date of Service for History & Physical: 07/09/18 - History of Present Illness Admitting Diagnosis: 1. COPD Exacerbation History of Present Illness: Colette Huffman is a a 57 y.o. F who presented to the ED d/t cough, wheezing and SOB x 2 weeks. Reports that she did see her PCP 11 days ago and was placed on oral steroids but has finished what was prescribed. Repoerts that the symptoms have worsened. Grandson, whom she watches, was dx with Influenza A this past Monday. Does have hx of significant COPD for which she uses 2L of home O2. Reports using 3 different inhalers at home in addition to Duonebs. Corporate Banking Officer is Dr. Mark Almeida. Blood noted in urine by nursing staff. Reports that she has had 1/3 of one of her kidney's removed for kidney cancer this past year. Follows with Dr. Mireya Peoples for nephrology out of [facility] and Dr. Federico Gibson for urology. States that she has been treated for UTI x 2 recently. Per PCP, pt has had blood in urine and is "normal" for approximately 6 months post surgery. Pt denies burning, odor, pelvic or flank pain. ED course Vitals: T 98.2, HR 77, BP 114/79, RR 18, SpO2 96% on 2L CXR: No acute lung findings Influenza A swab + Labs: Hgb 10.2, Neutrophils 88%, Creatinine 2.7, GFR 21, Procalcitonin 1.04 07/09/18 1100 Vitals: T 98.6, HR 105, BP 155/92, RR 22, SpO2 91% on 2L per NC Sitting up at edge of bed, audible wheezing noted. Alert and able to communicate full sentences with easeReports that she doesn't feel any improvement from the previous evening. Denies nausea, vomiting or diarrhea. States that her only cardiac history is Afib for which she sees Dr. Lopez. Next appointment is in August 2018. Denies noticing any LE edema. Travel Screening - Travel/Exposure Within Last 30 Days Have you traveled within the last 30 days?: No - Travel/Exposure Within Last Year Have you traveled outside the [place] in the last year?: No - Additonal Travel Details Have you been exposed to anyone with a communicable illness?: No - Travel Symptoms Symptom Screening: Fever (GT 100.4), Headache, Joint & Muscle Aches, Weakness, Fatigue, Chills Review of Systems Reviewed: No additional complaints except as noted below Constitutional: Reports: Weakness. Denies: Chills, Fever Eyes: Denies: Eye discharge ENT: Reports: Congestion Respiratory: Reports: Cough, Dyspnea. Denies: Hemoptysis Cardiovascular: Denies: Chest pain Endocrine: Reports: Fatigue Gastrointestinal: Denies: Nausea Genitourinary: Denies: Dysuria Musculoskeletal: Denies: Back pain Skin: Denies: Bruising Past Medical History - SOCIAL HISTORY Smoking Status: Former smoker Alcohol Use: None Drug Use: None - RESPIRATORY Hx Respiratory Disorders: Yes Hx Bronchitis: Yes Hx COPD: Yes Hx Dyspnea: Yes Hx Pneumonia: Yes - CARDIOVASCULAR Hx Cardio Disorders: Yes Hx Hypertension: Yes Hx Irregular Heartbeat: Yes Comment:: A-Fib - NEURO Hx Neuro Disorders: No - GI Hx GI Disorders: Yes Hx Reflux: Yes - Hx Genitourinary Disorders: No Comment:: left renal mass - ENDOCRINE Hx Endocrine Disorders: No - MUSCULOSKELETAL Hx Musculoskeletal Disorders: Yes - PSYCH Hx Psych Problems: Yes Hx Anxiety: Yes Hx Depression: Yes - HEMATOLOGY/ONCOLOGY Hx Hematology/Oncology Disorders: No Family Medical History Any Significant Family History?: No Hx Diabetes: Brother/Sister Hx Heart Disease: Mother H&P Meds/Allergies - Allergies Allergies: Allergies Allergy/AdvReac Type Severity Reaction Status Date / Time No Known Drug Allergies Allergy Unverified 04/03/18 11:11 - Home Medications Home Medications Medication Instructions Recorded Confirmed Last Taken Duloxetine HCl [Cymbalta] 60 mg PO DAILY 07/09/18 07/09/18 Unknown Lisinopril 20 mg PO DAILY 07/09/18 07/09/18 Unknown Topiramate [Topiramate ER] 25 mg PO BID 07/09/18 07/09/18 Unknown Previous Rx's Medication Instructions Recorded Albuterol Sulfate [Ventolin Hfa] 1 - 2 puff IH .EVERY 4-6 HOURS PRN 12/03/14 #1 inhaler - Active Medications Active Medications: Current Medications Acetaminophen (Tylenol 325mg) 650 mg PO Q6H PRN PRN Reason: PAIN - MILD(1-4)/FEVER Albuterol/Ipratropium (Duoneb) 3 ml INH RESP.Q4H.[facility] Last Admin: 07/09/18 09:50 Dose: 3 ml Apixaban (Eliquis) 5 mg PO BID [facility] Last Admin: 07/09/18 09:29 Dose: 5 mg Atorvastatin Calcium (Lipitor) 10 mg PO QHS [facility] Last Admin: 07/08/18 22:02 Dose: 10 mg Azithromycin (Zithromax) 250 mg PO DAILY [facility] Stop: 07/12/18 10:01 Buspirone HCl (Buspar) 10 mg PO BID [facility] Last Admin: 07/09/18 09:29 Dose: 10 mg Duloxetine HCl (Cymbalta) 60 mg PO DAILY [facility] Last Admin: 07/09/18 09:30 Dose: 60 mg Ferrous Sulfate (Iron) 325 mg PO DAILY [facility] Last Admin: 07/09/18 09:29 Dose: 325 mg Hydralazine HCl (Apresoline) 5 mg IV Q4H PRN PRN Reason: HYPERTENSIVE EMERGENCY CEFTRIAXONE 1GM/50ML BAG (Ceftriaxone 1 Gm-D5w Bag) 1 gm in 50 mls @ 100 mls/ hr IVPB Q12H [facility] Lisinopril (Zestril) 20 mg PO QD [facility] Last Admin: 07/08/18 19:44 Dose: 20 mg Methylprednisolone Sodium Succinate (Solu-Medrol) 60 mg IVP DAILY [facility] Last Admin: 07/09/18 09:31 Dose: 60 mg Metoprolol Tartrate (Lopressor) 25 mg PO BID [facility] Last Admin: 07/09/18 09:31 Dose: 25 mg Oseltamivir Phosphate (Tamiflu) 75 mg PO BID [facility] Last Admin: 07/09/18 09:30 Dose: 75 mg Oxycodone HCl (Oxy Ir) 5 mg PO QID PRN PRN Reason: PAIN - MILD TO MODERATE (1-7) Last Admin: 07/09/18 09:29 Dose: 5 mg [facility] Last Admin: 07/09/18 06:08 Dose: 40 mg Patient Own Med: Daliresp 500mcg Tablet 1 each MC DAILY [facility] Last Admin: 07/09/18 09:31 Dose: Not Given Topiramate (Topiramate) 25 mg PO BID [facility] Last Admin: 07/09/18 09:31 Dose: 25 mg Zolpidem Tartrate (Ambien) 10 mg PO QHS PRN PRN Reason: INSOMNIA Physical Exam - Vital Signs Vital Signs: Vital Signs - Last 24 Hrs Temp Pulse Pulse Resp BP BP Pulse Ox 07/09/18 10:08 100 H 20 96 07/09/18 10:07 96 H 20 96 07/09/18 08:57 24 07/09/18 08:00 98.6 F 105 H 22 155/92 91 L 07/08/18 21:35 99 H 16 96 07/08/18 21:00 20 07/08/18 20:10 98.7 F 103 H 24 136/80 99 07/08/18 17:56 98.4 F 101 H 18 123/90 97 07/08/18 17:50 97.9 F 100 H 20 167/84 91 L 07/08/18 17:30 98.4 F 98 H 18 150/81 97 07/08/18 16:41 92 H 18 98 07/08/18 15:35 83 18 98 07/08/18 15:04 76 18 99 07/08/18 14:41 98.2 F 77 18 114/79 96 - General General Appearance: Alert, Oriented x3, Cooperative, No acute distress Limitations: No limitations - Head Head exam: Atraumatic, Normocephalic, Normal inspection - Eye Eye exam: Normal appearance, PERRL, EOMI - ENT Throat exam: Normal inspection. negative: Tonsillar erythema, Tonsillar exudate - Neck Neck exam: Normal inspection, Full ROM. negative: Tenderness - Respiratory Respiratory exam: Wheezes (bilaterally in all lung kimble.). negative: Normal lung sounds bilaterally, Respiratory distress - Cardiovascular Cardiovascular Exam: Regular rate, Normal rhythm, Normal heart sounds - GI/Abdominal GI/Abdominal exam: Soft, Normal bowel sounds. negative: Tenderness - Extremities Extremities exam: Normal inspection, Full ROM, Normal capillary refill. negative: Tenderness - Neurological Neurological exam: Alert, Normal gait. negative: Abnormal gait, Motor sensory deficit - Psychiatric Psychiatric exam: negative: Anxious Results - Labs Result Diagrams: 07/09/18 06:30 07/09/18 06:30 Labs Last 24 Hours: Laboratory Results - last 24 hr 07/08/18 07/08/18 07/08/18 15:42 15:42 15:42 WBC 7.0 RBC 3.15 L Hgb 10.2 L Hct 32.5 L MCV 103.2 H MCH 32.3 MCHC 31.4 L RDW 12.5 Plt Count 182 MPV 10.2 Neutrophils % 88.0 H Eosinophils % Not Reportable Basophils % Not Reportable Lymphocytes 4.0 L Monocytes 8.0 PT INR APTT Sodium 141 Potassium 4.8 H Chloride 103 Carbon Dioxide 28.0 Anion Gap 10.0 BUN 42 H Creatinine 2.7 H Estimated GFR 19 Random Glucose 106 Calcium 9.1 Total Bilirubin AST ALT Alkaline Phosphatase C-Reactive Protein 6.77 H NT-Pro-B Natriuret Pep Total Protein Albumin Globulin Albumin/Globulin Ratio Procalcitonin 1.04 Influenza Type A Ag Influenza Type B Ag 07/08/18 07/08/18 07/09/18 15:42 19:28 06:30 WBC 5.5 RBC 2.89 L Hgb 9.0 L Hct 30.0 L MCV 103.8 H MCH 31.1 MCHC 30.0 L RDW 12.3 Plt Count 162 MPV 9.9 Neutrophils % 86.0 H Eosinophils % Not Reportable Basophils % Not Reportable Lymphocytes 6.0 L Monocytes 8.0 PT 10.3 INR 1.0 APTT 25.0 Sodium Potassium Chloride Carbon Dioxide Anion Gap BUN Creatinine Estimated GFR Random Glucose Calcium Total Bilirubin AST ALT Alkaline Phosphatase C-Reactive Protein NT-Pro-B Natriuret Pep Total Protein Albumin Globulin Albumin/Globulin Ratio Procalcitonin Influenza Type A Ag Positive H Influenza Type B Ag Negative 07/09/18 07/09/18 06:30 06:30 WBC RBC Hgb Hct MCV MCH MCHC RDW Plt Count MPV Neutrophils % Eosinophils % Basophils % Lymphocytes Monocytes PT INR APTT Sodium 142 Potassium 4.4 Chloride 108 H Carbon Dioxide 24.0 Anion Gap 10.0 BUN 42 H Creatinine 2.5 H Estimated GFR 21 Random Glucose 119 H Calcium 8.4 L Total Bilirubin < 0.20 L AST 12 ALT 14 Alkaline Phosphatase 85 C-Reactive Protein NT-Pro-B Natriuret Pep 650.60 H Total Protein 6.1 L Albumin 3.4 L Globulin 2.7 Albumin/Globulin Ratio 1.3 Procalcitonin Influenza Type A Ag Influenza Type B Ag - Imaging and Cardiology Chest x-ray Status: Report reviewed VTE H&P Assessment - Risk for VTE Risk for VTE: Yes Risk Level: Moderate Risk Assessment Date: 07/09/18 Risk Assessment Time: 11:00 VTE Orders Placed or Will Be Placed: Yes Plan - Inpatient Certification Inpatient Certification: Admit to inpatient care: Based on my medical assessment, after consideration of patient's risk factors (age, co-morbidities and patient presenting symptoms and acuity), I expect that this patient will remain in the hospital greater than or equal to two midnights and that the services needed warrant inpatient care because: Patient Risk Factors: [co-morbidities] Estimated length of stay: [48 hours] The patient may reasonably be expected to be discharged or transferred to a hospital within 96 hours after admission to [facility]. Services needed: [IV Therapy, Respiratory Therapy] Post hospital care (if known): home] I certify that my determination is in accordance with my understanding of Medicare requirements for reasonable and necessary inpatient services. 07/09/18 21:19 - Detailed Diagnosis and Plan (1) Influenza A Current Visit: Yes Status: Acute Base Code: J10.1 - FLU DUE TO OTH IDENT INFLUENZA VIRUS W OTH RESP MANIFEST Comment: 07/09/18 -Influenza A + -Tamiflu 75mg PO BID x 5 days (2) COPD exacerbation Current Visit: Yes Status: Acute Base Code: J44.1 - CHRONIC OBSTRUCTIVE PULMONARY DISEASE W (ACUTE) EXACERBATION Comment: 07/09/18 -Coarse lung sounds to all lung kimble and c/o increased DONA -Changed Azithromycin from IV to PO. Received 500mg dose IV on 07/08/18. Start Azithromycin 250mg PO daily x 4 doses -Continue IV Ceftriaxone 1gm q. 12 hours -Duoneb q. 4 hours while awak -Solumedrol 125mg IV x 1 in ED, continue Solumedrol 60mg IV daily -Continous Oxygen (3) CKD (chronic kidney disease), stage IV Current Visit: Yes Status: Acute Base Code: N18.4 - CHRONIC KIDNEY DISEASE, STAGE 4 (SEVERE) Comment: 07/09/18 -Worsening kidney function: creatinine 2.7 to 2.5 (baseline around 2), GFR 21 to 19 (baseline between 25 and 30) -pro-BNP 610, likely elevated to kidney disease -Stop IVF as pt is drinking H20 -Hold Lisinopril d/t nephrotoxicity -Hydralazine 5mg IV q. 4 hours PRN with parameters ordered for BP control (4) DVT prophylaxis Current Visit: Yes Status: Acute Base Code: [id number] - Comment: 07/09/18 -Continue Eliquis 5mg PO BID (5) Full code status Current Visit: Yes Status: Acute Base Code: Z78.9 - OTHER SPECIFIED HEALTH STATUS Comment: 07/09/18 -Full code this admission (6) Hematuria Current Visit: Yes Status: Acute Base Code: R31.9 - HEMATURIA, UNSPECIFIED Comment: 07/09/18 -Hx of kidney cancer, s/p partial nephrectomy in Fall 2017 -Discussed case with Chyna Jimenez NP who has discussed hematuria with pt's [facility] clock repair technician (Dr. Ame Peoples) who states that blood in urine x 6 months s/p surgery is normal -U/A collected: Large blood, no indication of UTI Inpatient Certification Admit to inpatient care: Based on my medical assessment, after consideration of patient's risk factors (age, co-morbidities and patient presenting symptoms and acuity), I expect that this patient will remain in the hospital greater than or equal to two midnights and that the services needed warrant inpatient care because: Patient Risk Factors: [Co-morbidities] Estimated length of stay: [48 hours] The patient may reasonably be expected to be discharged or transferred to a hospital within 96 hours after admission to [facility]. Services needed: [IV therapy, Respiratory Therapy] Post hospital care (if known): [home] I certify that my determination is in accordance with my understanding of Medicare requirements for reasonable and necessary inpatient services. 07/09/18 21:18
[2018-07-09] MEDS: AZITHROMYCIN 250 MG TABLET PO SCH (11:12)
[2018-07-09 13:00] LABS: URINE BILIRUBIN NEGATIVE (NEGATIVE); URINE BLOOD LARGE (NEGATIVE); URINE COLOR YELLOW; URINE GLUCOSE (UA) NEGATIVE (NEGATIVE); URINE KETONE NEGATIVE (NEGATIVE); URINE LEUKOCYTE ESTERASE NEGATIVE (NEGATIVE); URINE NITRITE NEGATIVE (NEGATIVE); URINE UROBILINOGEN 0.2 E.U./dL (0.20 - 1.00)
[2018-07-09 13:03] LABS: URINE APPEARANCE CLOUDY
[2018-07-09 13:06] LABS: URINE BACTERIA 2+; URINE WBC 0 - 2 (0-2/hpf)
[2018-07-09] MEDS: CEFTRIAXONE 1GM/50ML BAG 1 GM/50 ML BAG IVPB SCH (17:04)
[2018-07-09] MEDS: ATORVASTATIN 20 MG TABLET PO SCH (21:45)
[2018-07-10] MEDS: IPRATROPIUM/ALBUTEROL (0.5MG/3MG) NEB INH SCH ×7 (00:30→22:12)
[2018-07-10] MEDS: OXYCODONE HCL 5 MG TABLET PO PRN ×2 (05:27→17:13)
[2018-07-10 06:54] LABS: HEMATOCRIT 32.6 % (35.0-47.0); HEMOGLOBIN 9.6 gm/dl (11.6-16.0); MEAN CELL VOLUME 105.8 fl (81-97); MEAN CORPUSCULAR HGB CONC 29.4 g/dl (32-36); MEAN PLATELET VOLUME 9.7 fl (7.4-10.4); PLATELET COUNT 158 K/uL (130-400); RED BLOOD COUNT 3.08 M/uL (3.80-5.40); RED CELL DISTRIBUTION WIDTH 12.6 % (11.5-14.5); WHITE BLOOD COUNT W/O DIFF 6.6 K/uL (4.2-12.2)
[2018-07-10 06:56] LABS: MEAN CORPUSCULAR HEMOGLOBIN 31.1 pg (27-33)
[2018-07-10 07:07] LABS: CREATININE 2.6 mg/dL (0.5-0.9)
[2018-07-10] MEDS: PANTOPRAZOLE SODIUM 40 MG TABLET PO SCH ×3 (07:07→17:13)
[2018-07-10] MEDS: TOPIRAMATE 25MG TABLET PO SCH ×3 (07:10→21:28)
[2018-07-10] MEDS: CEFTRIAXONE 1GM/50ML BAG 1 GM/50 ML BAG IVPB SCH ×2 (07:11→17:16)
[2018-07-10] MEDS ORDERED: ONDANSETRON 4 MG ODT TABLET SL ONE (08:10)
[2018-07-10] MEDS: ACETAMINOPHEN 325 MG TAB PO PRN ×2 (08:21→21:31)
[2018-07-10] MEDS: BUSPIRONE 5 MG TABLET PO SCH ×2 (09:31→21:11)
[2018-07-10] MEDS: FERROUS SULFATE 325 MG TAB PO SCH (09:32)
[2018-07-10] MEDS: AZITHROMYCIN 250 MG TABLET PO SCH (09:32)
[2018-07-10] MEDS: DULOXETINE HCL 30 MG CAPSULE.DR PO SCH (09:33)
[2018-07-10] MEDS: METOPROLOL TART 25 MG TABLET PO SCH ×2 (09:34→21:27)
[2018-07-10] MEDS: APIXABAN 5MG TABLET PO SCH ×2 (09:35→21:27)
[2018-07-10] MEDS: OSTELTAMIVIR 75 MG CAP PO SCH ×2 (09:35→21:28)
[2018-07-10] MEDS: METHYLPREDNISOLONE PF 125MG/VIAL IVP SCH (10:47)
[2018-07-10] MEDS: GUAIFENESIN 600 MG TABCR PO SCH ×2 (10:47→21:28)
[2018-07-10] MEDS: DALIRESP 500 MCG MC SCH (10:48)
[2018-07-10] MEDS: BUTALB/ACETAMINOPHEN/CAFFEINE TABLET PO PRN (10:48)
--- NOTE | 2018-07-10 11:03 | Physician Progress Note ---
Subjective - Date Date of Physician Progress Note: 07/10/18 - Subjective Subjective Comment: 07/10/18: Patient A&O x 4, resting in bed. Patient reports a migraine this morning. States she does not typically have to take abortive therapy, as the Topimax has been working well as preventative therapy. Patient also reports a continued non-productive cough and states she feels that she has worsened shortness of breath with exertion today. Location: Head Radiation: Non-Radiating Objective - Vital Signs Vital Signs: Vital Signs - Last 24 Hrs Temp Pulse Pulse Resp BP Pulse Ox 07/10/18 09:00 24 07/10/18 08:04 102 H 20 94 L 07/10/18 08:00 98.6 F 97 H 18 131/89 94 L 07/10/18 01:20 91 H 20 97 07/09/18 19:52 97.9 F 92 H 20 131/76 100 07/09/18 18:05 102 H 20 93 L 07/09/18 16:00 97.9 F 67 18 129/56 94 L 07/09/18 14:02 92 H 20 94 L 07/09/18 13:58 92 H 20 94 L 07/09/18 12:00 98.0 F 92 H 20 142/88 99 - General General Appearance: Alert, Oriented x3, Cooperative, Mild distress Limitations: No limitations - Head Head exam: Atraumatic, Normocephalic, Normal inspection - Eye Eye exam: Normal appearance, PERRL, EOMI - ENT ENT exam: Normal exam, Mucous membranes moist Throat exam: Normal inspection. negative: Tonsillar erythema, Tonsillar exudate - Neck Neck exam: Normal inspection, Full ROM. negative: Tenderness - Respiratory Respiratory exam: Decreased breath sounds, Wheezes (scattered throughout). negative: Normal lung sounds bilaterally, Respiratory distress - Cardiovascular Cardiovascular Exam: Regular rate, Normal rhythm, Normal heart sounds Peripheral Pulses: 2+: Radial (R), Radial (L) - GI/Abdominal GI/Abdominal exam: Soft, Normal bowel sounds. negative: Tenderness - Rectal Rectal exam: Deferred - exam: Deferred - Extremities Extremities exam: Normal inspection, Full ROM, Normal capillary refill. negative: Tenderness - Neurological Neurological exam: Alert, Normal gait, Oriented X3. negative: Abnormal gait, Motor sensory deficit - Psychiatric Psychiatric exam: Flat affect. negative: Anxious Assessment and Plan - Assessment and Plan (1) Influenza A Current Visit: Yes Status: Acute Base Code: J10.1 - FLU DUE TO OTH IDENT INFLUENZA VIRUS W OTH RESP MANIFEST Comment: 07/10/18 -Influenza A + -Tamiflu 75mg PO BID x 5 days -Maintain isolation precautions (2) COPD exacerbation Current Visit: Yes Status: Acute Base Code: J44.1 - CHRONIC OBSTRUCTIVE PULMONARY DISEASE W (ACUTE) EXACERBATION Comment: 07/10/18 -Coarse lung sounds to all lung kimble and c/o increased DONA with activity -Chest x-ray on admission negative for infiltrates -Contine Azithromycin 250mg PO daily, as this is patient's home medication regimen from pulmonlogist -Continue IV Ceftriaxone 1gm q. 12 hours -Afebrile, WBC not elevated, procalcitonin has improved, from 1.04 to 0.8 -Duoneb q. 4 hours while awak -Solumedrol 125mg IV x 1 in ED, continue Solumedrol 60mg IV daily -Continous Oxygen to keep pulse ox >90% -Mucinex 600mg BID -IS QID and Flutter valve treatments BID (3) CKD (chronic kidney disease), stage IV Current Visit: Yes Status: Acute Base Code: N18.4 - CHRONIC KIDNEY DISEASE, STAGE 4 (SEVERE) Comment: 07/10/18 -Worsening kidney function: creatinine 2.6 (baseline around 2), GFR 20 ( baseline between 25 and 30) -pro-BNP 610, likely elevated to kidney disease -Stop IVF and continue to encourage PO hydration -Hold Lisinopril d/t nephrotoxicity -Hydralazine 5mg IV q. 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 but following with urologist at [facility] , next appointment 08/02/18 (4) DVT prophylaxis Current Visit: Yes Status: Acute Base Code: [id number] - Comment: 07/10/18 -Continue Eliquis 5mg PO BID (5) Full code status Current Visit: Yes Status: Acute Base Code: Z78.9 - OTHER SPECIFIED HEALTH STATUS Comment: 07/10/18 -Full code this admission Results - Labs Result Diagrams: 07/10/18 06:45 07/10/18 06:45 Labs Last 24 Hours: Laboratory Results - last 24 hr 03/07/09/18 07/09/18 12:58 14:15 15:29 WBC Corrected WBC RBC Hgb Hct MCV MCH MCHC RDW Plt Count MPV Gran % Neutrophils % Band Neutrophils % Lymphocytes % Monocytes % Eosinophils % Basophils % Lymphocytes Monocytes Basophils Metamyelocytes Myelocytes Promyelocytes Nucleated RBCs Differential Comment Hypersegmented Polys Plasma Cells Other Cell Type Toxic Granulation Dohle Bodies Geoff Rods Platelet Estimate RBC Morphology Polychromasia Hypochromasia Poikilocytosis Basophilic Stippling Anisocytosis Microcytosis Macrocytosis Spherocytes Sickle Cells Target Cells Tear Drop Cells Ovalocytes Stomatocytes Helmet Cells [place] Bodies [place] Rings Rian Cells Acanthocytes (Spur) Rouleaux Schistocytes Morphology Comment Eosinophil Count Sodium Potassium Chloride Carbon Dioxide Anion Gap BUN Creatinine Estimated GFR Random Glucose Calcium Procalcitonin Urine Color Yellow Urine Appearance Cloudy Urine pH 5.5 Ur Specific [place] 1.015 Urine Protein 100 mg/dl H Urine Glucose (UA) Negative Urine Ketones Negative Urine Blood Large H Urine Nitrite Negative Urine Bilirubin Negative Urine Urobilinogen 0.2 Ur Leukocyte Esterase Negative Urine RBC Too numerous to cnt Urine WBC 0 - 2 Ur Epithelial Cells 7 - 10 Urine Bacteria 2+ Specimen Type Cancelled Nasal Influenza A PCR Cancelled Nasal Influenza B PCR Cancelled Miscellaneous Test Cancelled 07/10/18 07/10/18 07/10/18 06:45 06:45 06:45 WBC 6.6 Corrected WBC RBC 3.08 L Hgb 9.6 L Hct 32.6 L MCV 105.8 H MCH 31.1 MCHC 29.4 L RDW 12.6 Plt Count 158 MPV 9.7 Gran % Neutrophils % 80.0 Band Neutrophils % Lymphocytes % Monocytes % Eosinophils % Not Reportable Basophils % Not Reportable Lymphocytes 9.0 L Monocytes 11.0 H Basophils Metamyelocytes Myelocytes Promyelocytes Nucleated RBCs Differential Comment Hypersegmented Polys Plasma Cells Other Cell Type Toxic Granulation Dohle Bodies Geoff Rods Platelet Estimate RBC Morphology Normal Polychromasia Hypochromasia Poikilocytosis Basophilic Stippling Anisocytosis Microcytosis Macrocytosis Spherocytes Sickle Cells Target Cells Tear Drop Cells Ovalocytes Stomatocytes Helmet Cells [place] Bodies Jordan Rings [place] Cells Acanthocytes (Spur) Rouleaux Schistocytes Morphology Comment Eosinophil Count Sodium 146 H Potassium 4.7 H Chloride 108 H Carbon Dioxide 26.0 Anion Gap 12.0 BUN 47 H Creatinine 2.6 H Estimated GFR 20 Random Glucose 113 H Calcium 8.8 Procalcitonin 0.801 Urine Color Urine Appearance Urine pH Ur Specific [place] Urine Protein Urine Glucose (UA) Urine Ketones Urine Blood Urine Nitrite Urine Bilirubin Urine Urobilinogen Ur Leukocyte Esterase Urine RBC Urine WBC Ur Epithelial Cells Urine Bacteria Specimen Type Nasal Influenza A PCR Nasal Influenza B PCR Miscellaneous Test 07/10/18 06:45 WBC Cancelled Corrected WBC Cancelled RBC Cancelled Hgb Cancelled Hct Cancelled MCV Cancelled MCH Cancelled MCHC Cancelled RDW Cancelled Plt Count Cancelled MPV Cancelled Gran % Cancelled Neutrophils % Cancelled Band Neutrophils % Cancelled Lymphocytes % Cancelled Monocytes % Cancelled Eosinophils % Cancelled Basophils % Cancelled Lymphocytes Cancelled Monocytes Cancelled Basophils Cancelled Metamyelocytes Cancelled Myelocytes Cancelled Promyelocytes Cancelled Nucleated RBCs Cancelled Differential Comment Cancelled Hypersegmented Polys Cancelled Plasma Cells Cancelled Other Cell Type Cancelled Toxic Granulation Cancelled Dohle Bodies Cancelled Geoff Rods Cancelled Platelet Estimate Cancelled RBC Morphology Cancelled Polychromasia Cancelled Hypochromasia Cancelled Poikilocytosis Cancelled Basophilic Stippling Cancelled Anisocytosis Cancelled Microcytosis Cancelled Macrocytosis Cancelled Spherocytes Cancelled Sickle Cells Cancelled Target Cells Cancelled Tear Drop Cells Cancelled Ovalocytes Cancelled Stomatocytes Cancelled Helmet Cells Cancelled [place] Bodies Cancelled Jordan Rings Cancelled [place] Cells Cancelled Acanthocytes (Spur) Cancelled Rouleaux Cancelled Schistocytes Cancelled Morphology Comment Cancelled Eosinophil Count Cancelled Sodium Potassium Chloride Carbon Dioxide Anion Gap BUN Creatinine Estimated GFR Random Glucose Calcium Procalcitonin Urine Color Urine Appearance Urine pH Ur Specific [place] Urine Protein Urine Glucose (UA) Urine Ketones Urine Blood Urine Nitrite Urine Bilirubin Urine Urobilinogen Ur Leukocyte Esterase Urine RBC Urine WBC Ur Epithelial Cells Urine Bacteria Specimen Type Nasal Influenza A PCR Nasal Influenza B PCR Miscellaneous Test DVT/PE Assessment - Risk for VTE Risk for VTE: No Risk Level: Moderate Risk Assessment Date: 07/09/18 Risk Assessment Time: 11:00 VTE Orders Placed or Will Be Placed: Yes - Active Medicaitons Current Medications: Current Medications Acetaminophen (Tylenol 325mg) 650 mg PO Q6H PRN PRN Reason: PAIN - MILD(1-4)/FEVER Last Admin: 07/10/18 08:21 Dose: 650 mg Acetaminophen/Butalbital/Caffeine (Fioricet) 1 each PO Q4H PRN PRN Reason: HEADACHE Last Admin: 07/10/18 10:48 Dose: 1 each Albuterol/Ipratropium (Duoneb) 3 ml INH RESP.Q4H.WA [facility] Last Admin: 07/10/18 08:04 Dose: 3 ml Apixaban (Eliquis) 5 mg PO BID [facility] Last Admin: 07/10/18 09:35 Dose: 5 mg Atorvastatin Calcium (Lipitor) 10 mg PO QHS [facility] Last Admin: 07/09/18 21:45 Dose: 10 mg Azithromycin (Zithromax) 250 mg PO DAILY [facility] Stop: 07/12/18 10:01 Last Admin: 07/10/18 09:32 Dose: 250 mg Buspirone HCl (Buspar) 10 mg PO BID [facility] Last Admin: 07/10/18 09:31 Dose: 10 mg Duloxetine HCl (Cymbalta) 60 mg PO DAILY [facility] Last Admin: 07/10/18 09:33 Dose: 60 mg Ferrous Sulfate (Iron) 325 mg PO DAILY [facility] Last Admin: 07/10/18 09:32 Dose: 325 mg Guaifenesin (Mucinex) 600 mg PO BID [facility] Last Admin: 07/10/18 10:47 Dose: 600 mg Hydralazine HCl (Apresoline) 5 mg IV Q4H PRN PRN Reason: HYPERTENSIVE EMERGENCY CEFTRIAXONE 1GM/50ML BAG (Ceftriaxone 1 Gm-D5w Bag) 1 gm in 50 mls @ 100 mls/ hr IVPB Q12H [facility] Last Infusion: 07/10/18 07:50 Dose: Infused Lisinopril (Zestril) 20 mg PO QD [facility] Last Admin: 07/08/18 19:44 Dose: 20 mg Methylprednisolone Sodium Succinate (Solu-Medrol) 60 mg IVP DAILY [facility] Last Admin: 07/10/18 10:47 Dose: 60 mg Metoprolol Tartrate (Lopressor) 25 mg PO BID [facility] Last Admin: 07/10/18 09:34 Dose: 25 mg Oseltamivir Phosphate (Tamiflu) 75 mg PO BID [facility] Last Admin: 07/10/18 09:35 Dose: 75 mg Oxycodone HCl (Oxy Ir) 5 mg PO QID PRN PRN Reason: PAIN - MILD TO MODERATE (1-7) Last Admin: 07/10/18 05:27 Dose: 5 mg Pantoprazole Sodium (Protonix) 40 mg PO BIDAC [facility] Last Admin: 07/10/18 07:10 Dose: 40 mg Patient Own Med: Daliresp 500mcg Tablet 1 each MC DAILY [facility] Last Admin: 07/10/18 10:48 Dose: 1 each Topiramate (Topiramate) 25 mg PO BID [facility] Last Admin: 07/10/18 09:33 Dose: 25 mg Zolpidem Tartrate (Ambien) 10 mg PO QHS PRN PRN Reason: INSOMNIA AMI Plan - Labs Result Diagrams: 07/10/18 06:45 07/10/18 06:45
[2018-07-10] MEDS: LISINOPRIL 20 MG TABLET PO SCH (17:13)
[2018-07-10] MEDS: ATORVASTATIN 20 MG TABLET PO SCH (21:11)
[2018-07-11] MEDS: BUTALB/ACETAMINOPHEN/CAFFEINE TABLET PO PRN ×2 (03:38→07:41)
[2018-07-11] MEDS: CEFTRIAXONE 1GM/50ML BAG 1 GM/50 ML BAG IVPB SCH (06:33)
[2018-07-11] MEDS: PANTOPRAZOLE SODIUM 40 MG TABLET PO SCH (06:33)
[2018-07-11] MEDS: OXYCODONE HCL 5 MG TABLET PO PRN (06:36)
[2018-07-11] MEDS: ACETAMINOPHEN 325 MG TAB PO PRN (06:37)
[2018-07-11] MEDS: IPRATROPIUM/ALBUTEROL (0.5MG/3MG) NEB INH SCH ×3 (06:48→14:39)
[2018-07-11 06:51] LABS: HEMATOCRIT 31.6 % (35.0-47.0); HEMOGLOBIN 9.1 gm/dl (11.6-16.0); MEAN CELL VOLUME 107.1 fl (81-97); MEAN CORPUSCULAR HEMOGLOBIN 30.8 pg (27-33); MEAN CORPUSCULAR HGB CONC 28.8 g/dl (32-36); MEAN PLATELET VOLUME 10.5 fl (7.4-10.4); PLATELET COUNT 156 K/uL (130-400); RED BLOOD COUNT 2.95 M/uL (3.80-5.40); RED CELL DISTRIBUTION WIDTH 12.7 % (11.5-14.5); WHITE BLOOD COUNT W/O DIFF 4.5 K/uL (4.2-12.2)
[2018-07-11 06:59] LABS: CREATININE 2.7 mg/dL (0.5-0.9)
[2018-07-11 07:24] LABS: HYPOCHROMIA 1+; PLATELET ESTIMATE NORMAL (NORMAL)
[2018-07-11] MEDS: METHYLPREDNISOLONE PF 125MG/VIAL IVP SCH (09:57)
[2018-07-11] MEDS: FERROUS SULFATE 325 MG TAB PO SCH (10:02)
[2018-07-11] MEDS: AZITHROMYCIN 250 MG TABLET PO SCH (10:02)
[2018-07-11] MEDS: METOPROLOL TART 25 MG TABLET PO SCH (10:02)
[2018-07-11] MEDS: OSTELTAMIVIR 75 MG CAP PO SCH (10:02)
[2018-07-11] MEDS: TOPIRAMATE 25MG TABLET PO SCH (10:02)
[2018-07-11] MEDS: DULOXETINE HCL 30 MG CAPSULE.DR PO SCH (10:02)
[2018-07-11] MEDS: APIXABAN 5MG TABLET PO SCH (10:02)
[2018-07-11] MEDS: BUSPIRONE 5 MG TABLET PO SCH (10:02)
[2018-07-11] MEDS: GUAIFENESIN 600 MG TABCR PO SCH (10:02)
[2018-07-11] MEDS: DALIRESP 500 MCG MC SCH (10:03)
[2018-07-11] MEDS ORDERED: METOCLOPRAMIDE HCL 10 MG/2 ML VIAL IVP ONE (11:13)
[2018-07-11] MEDS ORDERED: DIPHENHYDRAMINE HCL 50 MG/ML VIAL IVP ONE (11:13)
--- NOTE | 2018-07-11 16:28 | Discharge Summary ---
Providers Discharge Summary Date: 07/11/18 Date of admission: 07/08/18 17:22 Expected Date of Discharge: 07/11/18 Attending physician: DALLIN KELLY Primary care physician: Chyna Jimenez N.P. Physical Exam - Vital Signs Vital Signs: Vital Signs - Last 24 Hrs Temp Pulse Pulse Resp BP Pulse Ox 07/11/18 14:30 86 18 07/11/18 12:00 97.6 F 75 16 154/82 99 07/11/18 10:10 85 18 97 07/11/18 09:00 18 07/11/18 08:00 97.9 F 78 20 135/75 96 07/11/18 06:48 91 H 20 94 L 07/10/18 22:13 90 20 95 07/10/18 20:00 98.0 F 81 20 122/66 97 07/10/18 16:58 90 18 99 - General General Appearance: Alert, Oriented x3, Cooperative, Mild distress Limitations: No limitations - Head Head exam: Atraumatic, Normocephalic, Normal inspection - Eye Eye exam: Normal appearance, PERRL, EOMI - ENT ENT exam: Normal exam, Mucous membranes moist Throat exam: Normal inspection. negative: Tonsillar erythema, Tonsillar exudate - Neck Neck exam: Normal inspection, Full ROM. negative: Tenderness - Respiratory Respiratory exam: Decreased breath sounds, Wheezes (scattered throughout). negative: Normal lung sounds bilaterally, Respiratory distress - Cardiovascular Cardiovascular Exam: Regular rate, Normal rhythm, Normal heart sounds Peripheral Pulses: 2+: Radial (R), Radial (L) - GI/Abdominal GI/Abdominal exam: Soft, Normal bowel sounds. negative: Tenderness - Rectal Rectal exam: Deferred - exam: Deferred - Extremities Extremities exam: Normal inspection, Full ROM, Normal capillary refill. negative: Tenderness - Neurological Neurological exam: Alert, Normal gait, Oriented X3. negative: Abnormal gait, Motor sensory deficit - Psychiatric Psychiatric exam: Flat affect. negative: Anxious Hospitalization - Hospitalization Admission Diagnosis: 1. COPD Exacerbation - Problem List/Discharge Diagnosis (1) Influenza A Current Visit: Yes Status: Acute Base Code: J10.1 - FLU DUE TO OTH IDENT INFLUENZA VIRUS W OTH RESP MANIFEST Comment: 07/11/18 -Influenza A + -Tamiflu 75mg PO BID x 5 days -Maintain isolation precautions (2) COPD exacerbation Current Visit: Yes Status: Acute Base Code: J44.1 - CHRONIC OBSTRUCTIVE PULMONARY DISEASE W (ACUTE) EXACERBATION Comment: 07/11/18 -Coarse lung sounds to all lung kimble and c/o increased DONA with activity -Chest x-ray on admission negative for infiltrates -Contine Azithromycin 250mg PO daily, as this is patient's home medication regimen from pulmonlogist -Afebrile, WBC not elevated, procalcitonin has improved, from 1.04 to 0.8 -Duoneb q. 4 hours while awak -Solumedrol 125mg IV x 1 in ED, continue Solumedrol 60mg IV daily. Will continue Prednisone 40mg PO daily x 3 days -Continous Oxygen to keep pulse ox >90% -Mucinex 600mg BID -IS QID and Flutter valve treatments BID to be continued at home (3) CKD (chronic kidney disease), stage IV Current Visit: Yes Status: Acute Base Code: N18.4 - CHRONIC KIDNEY DISEASE, STAGE 4 (SEVERE) Comment: 07/11/18 -Worsening kidney function: creatinine 2.6 (baseline around 2), GFR 20 ( baseline between 25 and 30) -pro-BNP 610, likely elevated to kidney disease -Stop IVF and continue to encourage PO hydration -Hold Lisinopril d/t nephrotoxicity -Hydralazine 5mg IV q. 4 hours PRN with parameters ordered for BP control -Patient reports not having a hospital admitting clerk but following with urologist at [facility] , next appointment 08/02/18 (4) DVT prophylaxis Current Visit: Yes Status: Acute Base Code: [id number] - Comment: 07/11/18 -Continue Eliquis 5mg PO BID (5) Full code status Current Visit: Yes Status: Acute Base Code: Z78.9 - OTHER SPECIFIED HEALTH STATUS Comment: 07/11/18 -Full code this admission - Hospitalization Course Disposition: Home, Self-Care Hospital Course: Colette Huffman is a a 57 y.o. F who presented to the ED d/t cough, wheezing and SOB x 2 weeks. Reports that she did see her PCP 11 days ago and was placed on oral steroids but has finished what was prescribed. Repoerts that the symptoms have worsened. Grandson, whom she watches, was dx with Influenza A this past Monday. Does have hx of significant COPD for which she uses 2L of home O2. Reports using 3 different inhalers at home in addition to Duonebs. Automation Technician is Dr. Mark Almeida. Blood noted in urine by nursing staff. Reports that she has had 1/3 of one of her kidney's removed for kidney cancer this past year. Follows with Dr. Mireya Peoples for nephrology out of [facility] and Dr. Federico Gibson for urology. States that she has been treated for UTI x 2 recently. Per PCP, pt has had blood in urine and is "normal" for approximately 6 months post surgery. Pt denies burning, odor, pelvic or flank pain. ED course Vitals: T 98.2, HR 77, BP 114/79, RR 18, SpO2 96% on 2L CXR: No acute lung findings Influenza A swab + Labs: Hgb 10.2, Neutrophils 88%, Creatinine 2.7, GFR 21, Procalcitonin 1.04 07/09/18 1100 Vitals: T 98.6, HR 105, BP 155/92, RR 22, SpO2 91% on 2L per NC Sitting up at edge of bed, audible wheezing noted. Alert and able to communicate full sentences with easeReports that she doesn't feel any improvement from the previous evening. Denies nausea, vomiting or diarrhea. States that her only cardiac history is Afib for which she sees Dr. Lopez. Next appointment is in August 2018. Denies noticing any LE edema. UPDATE: Patient sitting up in bed, SO at bedside. Patient in no respiratory distress, reports headache has improved. Patient has remained afebrile, WBC unremarkable. Patient to continue Tamiflu, breathing treatments, IS and flutter valve, and prednisone at home. Patient to follow-up next week with PCP (Chyna Jimenez) next week with lab recheck. Procedures: Imaging and X-Rays 07/08/18 15:25 CHEST 2 VIEWS [RAD] Stat Abnormal Labs: Abnormal Lab Results 07/08/18 07/08/18 07/08/18 Range/Units 15:42 15:42 15:42 RBC 3.15 L (3.80-5.40) M/uL Hgb 10.2 L (11.6-16.0) gm/dl Hct 32.5 L (35.0-47.0) % MCV 103.2 H (81-97) fl MCHC 31.4 L (32-36) g/dl MPV (7.4-10.4) fl Neutrophils % 88.0 H (47-80) % Lymphocytes 4.0 L (16-45) % Monocytes (0-9) % Sodium (136-145) mmol/L Potassium 4.8 H (3.4-4.5) mmol/L Chloride (98-107) mmol/L BUN 42 H (6-20) mg/dL Creatinine 2.7 H (0.5-0.9) mg/dL Random Glucose (74-109) mg/dL Calcium (8.6-10.0) mg/dL Total Bilirubin (0.2-1.0) mg/dL C-Reactive Protein 6.77 H (<0.5) mg/dL NT-Pro-B Natriuret Pep (<125) pg/mL Total Protein (6.6-8.7) g/dL Albumin (4.0-5.0) g/dL Urine Protein (NEGATIVE) Urine Blood (NEGATIVE) Influenza Type A Ag (NEGATIVE) 07/08/18 07/09/18 07/09/18 Range/Units 19:28 06:30 06:30 RBC 2.89 L (3.80-5.40) M/uL Hgb 9.0 L (11.6-16.0) gm/dl Hct 30.0 L (35.0-47.0) % MCV 103.8 H (81-97) fl MCHC 30.0 L (32-36) g/dl MPV (7.4-10.4) fl Neutrophils % 86.0 H (47-80) % Lymphocytes 6.0 L (16-45) % Monocytes (0-9) % Sodium (136-145) mmol/L Potassium (3.4-4.5) mmol/L Chloride 108 H (98-107) mmol/L BUN 42 H (6-20) mg/dL Creatinine 2.5 H (0.5-0.9) mg/dL Random Glucose 119 H (74-109) mg/dL Calcium 8.4 L (8.6-10.0) mg/dL Total Bilirubin < 0.20 L (0.2-1.0) mg/dL C-Reactive Protein (<0.5) mg/dL NT-Pro-B Natriuret Pep (<125) pg/mL Total Protein 6.1 L (6.6-8.7) g/dL Albumin 3.4 L (4.0-5.0) g/dL Urine Protein (NEGATIVE) Urine Blood (NEGATIVE) Influenza Type A Ag Positive H (NEGATIVE) 07/09/18 07/09/18 07/10/18 Range/Units 06:30 12:58 06:45 RBC 3.08 L (3.80-5.40) M/uL Hgb 9.6 L (11.6-16.0) gm/dl Hct 32.6 L (35.0-47.0) % MCV 105.8 H (81-97) fl MCHC 29.4 L (32-36) g/dl MPV (7.4-10.4) fl Neutrophils % (47-80) % Lymphocytes 9.0 L (16-45) % Monocytes 11.0 H (0-9) % Sodium (136-145) mmol/L Potassium (3.4-4.5) mmol/L Chloride (98-107) mmol/L BUN (6-20) mg/dL Creatinine (0.5-0.9) mg/dL Random Glucose (74-109) mg/dL Calcium (8.6-10.0) mg/dL Total Bilirubin (0.2-1.0) mg/dL C-Reactive Protein (<0.5) mg/dL NT-Pro-B Natriuret Pep 650.60 H (<125) pg/mL Total Protein (6.6-8.7) g/dL Albumin (4.0-5.0) g/dL Urine Protein 100 mg/dl H (NEGATIVE) Urine Blood Large H (NEGATIVE) Influenza Type A Ag (NEGATIVE) 07/10/18 07/11/18 07/11/18 Range/Units 06:45 06:30 06:30 RBC 2.95 L (3.80-5.40) M/uL Hgb 9.1 L (11.6-16.0) gm/dl Hct 31.6 L (35.0-47.0) % MCV 107.1 H (81-97) fl MCHC 28.8 L (32-36) g/dl MPV 10.5 H (7.4-10.4) fl Neutrophils % (47-80) % Lymphocytes 14.0 L (16-45) % Monocytes 12.0 H (0-9) % Sodium 146 H (136-145) mmol/L Potassium 4.7 H 4.7 H (3.4-4.5) mmol/L Chloride 108 H (98-107) mmol/L BUN 47 H 44 H (6-20) mg/dL Creatinine 2.6 H 2.7 H (0.5-0.9) mg/dL Random Glucose 113 H (74-109) mg/dL Calcium (8.6-10.0) mg/dL Total Bilirubin (0.2-1.0) mg/dL C-Reactive Protein (<0.5) mg/dL NT-Pro-B Natriuret Pep (<125) pg/mL Total Protein (6.6-8.7) g/dL Albumin (4.0-5.0) g/dL Urine Protein (NEGATIVE) Urine Blood (NEGATIVE) Influenza Type A Ag (NEGATIVE) Condition at Discharge: (2) Stable Discharge Medications - Discharge Medications Prescriptions: Guaifenesin [Mucinex] 600 mg PO BID #20 tabcr Oseltamivir Phosphate [Tamiflu] 75 mg PO BID #10 capsule Prednisone [Prednisone 20Mg] 40 mg PO DAILY #6 tab Home Medications: Ambulatory Orders Albuterol Sulfate [Ventolin Hfa] 1 - 2 puff IH .EVERY 4-6 HOURS PRN #1 inhaler 12/03/14 [Last Taken 1 Day Ago ~01/21/18] Roflumilast [Daliresp] 500 mcg PO DAILY tab 08/06/15 [Last Taken 1 Day Ago ~11/01] Ferrous Sulfate [Iron] 325 mg PO DAILY 05/03/17 [Last Taken 1 Day Ago ~01/21/18] Tiotropium [place] [Spiriva Respimat] 2 inh INH DAILY 06/30/17 [Last Taken 1 Day Ago ~01/21/18] Cholecalciferol (Vitamin D3) [Vitamin D3] 2,000 unit PO DAILY 01/22/18 [Last Taken 1 Day Ago ~01/21/18] Multivitamin [Multi-Vitamin Daily] 1 each PO DAILY 01/22/18 [Last Taken Unknown] Oxycodone HCl 5 mg PO QID PRN 01/22/18 [Last Taken 1 Day Ago ~01/21/18] Duloxetine HCl [Cymbalta] 60 mg PO DAILY 07/09/18 [Last Taken Unknown] Lisinopril 20 mg PO DAILY 07/09/18 [Last Taken Unknown] Topiramate [Topiramate ER] 25 mg PO BID 07/09/18 [Last Taken Unknown] Azithromycin [Zithromax] 250 mg PO DAILY tab 07/11/18 [Last Taken Unknown] Guaifenesin [Mucinex] 600 mg PO BID #20 tabcr 07/11/18 [Last Taken Unknown] Oseltamivir Phosphate [Tamiflu] 75 mg PO BID #10 capsule 07/11/18 [Last Taken Unknown] Prednisone [Prednisone 20Mg] 40 mg PO DAILY #6 tab 07/11/18 [Last Taken Unknown] Discharge Plan - Discharge Instructions Activity at Discharge: Increase Activity as Tolerated Diet at Discharge: Advance to Usual Diet Additional Instructions: -Take Tamiflu twice daily for 5 additional days -Starting tomorrow, take the Prednisone 40mg in the morning for 3 days -Continue using your steroids and breathing treatments -Continue using the incentive spirometer and flutter valve at home -Get your labs drawn prior to your appointment with Chyna next week Follow up with Chyna Jimenez at [facility] on Mon07/18/18 at 19:30, as scheduled. Quality Measures - Quality Measures Quality Measures: Documentation of Current Medications in Medical Record, Screening for High Blood Pressure and F/U Documented - Current Medications Quality Measure: Measure #130: Documentation of Current Medications Documentation of Current Medications: <Current Medications Documented/Reviewed> [G8427] - Blood Pressure Screening Quality Measure: Screening for High Blood Pressure and Follow-Up Documented Does Patient Have Any of the Following: Active Dx of HTN Blood Pressure Classification: Hypertensive Reading Systolic Measurement: 123 Diastolic Measurement: 90 Screening for High Blood Pressure: Patient Exclusion, Hx of HTN [G9744] - Elder Abuse Suspicion Index EASI Reference Information: Ramses WEN, Jaye C, Kanchan D, Alicia Harrington.Development and validation of a tool to assist physicians identification of elder abuse: The Elder Abuse Suspicion Index (EASI ). Journal of Elder Abuse and Neglect, 2008; 20 (3): 276-300.
== END 2018-07-11 17:15 | disposition home or self-care (01) | DRG 191 ==
LOC: ER 14:04 → MEDSURG 17:22 → OBSVTOIN 17:22
PROVIDERS: ADMIT Internal Medicine; ATTEND Internal Medicine
DX: J44.1 Chronic obstructive pulmonary disease with (acute) exacerbation (principal); N18.4 Chronic kidney disease, stage 4 (severe); J10.1 Influenza due to other identified influenza virus with other respiratory manifestations; R31.9 Hematuria, unspecified; R50.9 Fever, unspecified; G43.909 Migraine, unspecified, not intractable, without status migrainosus; R11.10 Vomiting, unspecified; I10 Essential (primary) hypertension; I48.91 Unspecified atrial fibrillation; Z79.01 Long term (current) use of anticoagulants; K21.9 Gastro-esophageal reflux disease without esophagitis; Z99.81 Dependence on supplemental oxygen; Z85.528 Personal history of other malignant neoplasm of kidney; Z87.891 Personal history of nicotine dependence
CPT/HCPCS: 71046; 80048; 80053; 81001; 83880; 84145; 85027; 85610; 85730; 86140; 87400; 94010; 94640; 94667; 94668; 94760; 94761; 96365; 96375; 99223; 99233; 99239; 99285; J0456; J0696; J1200; J2765; J2930; J7050; J7613

== ENCOUNTER 2018-07-16 14:49 | Observation (INO) | payer MEDICAID ==
[2018-07-16] MEDS ORDERED: IPRATROPIUM/ALBUTEROL (0.5MG/3MG) NEB INH ONE ×2 (15:11→17:04)
[2018-07-16] MEDS ORDERED: METHYLPREDNISOLONE PF 125MG/VIAL IVP ONE (16:09)
[2018-07-16 16:25] LABS: BASO % 0.1 % (0-6); EOS % 1.6 % (0-6); GRAN % 73.5 % (47-80); HEMATOCRIT 35.8 % (35.0-47.0); HEMOGLOBIN 10.6 gm/dl (11.6-16.0); LYMPH % 18.2 % (16-45); MEAN CELL VOLUME 104.1 fl (81-97); MEAN CORPUSCULAR HEMOGLOBIN 30.8 pg (27-33); MEAN CORPUSCULAR HGB CONC 29.6 g/dl (32-36); MEAN PLATELET VOLUME 10.5 fl (7.4-10.4); MONO % 6.6 % (0-9); PLATELET COUNT 251 K/uL (130-400); RED BLOOD COUNT 3.44 M/uL (3.80-5.40); RED CELL DISTRIBUTION WIDTH 12.4 % (11.5-14.5); WHITE BLOOD COUNT W/O DIFF 6.9 K/uL (4.2-12.2)
[2018-07-16 16:31] LABS: BILIRUBIN,TOTAL 0.2 mg/dL (0.2-1.0); CREATININE 3.1 mg/dL (0.5-0.9); TOTAL PROTEIN 7.1 g/dL (6.6-8.7)
[2018-07-16 16:36] LABS: ALB/GLOB RATIO 1.1 (1.1-1.8); ALBUMIN 3.7 g/dL (4.0-5.0)
[2018-07-16 16:38] LABS: NTpro B-NATRIURETIC PEPTIDE 547.6 pg/mL (<125)
--- NOTE | 2018-07-16 16:40 | Emergency Department Record ---
History of Present Illness - General Chief Complaint: Shortness of breath Stated Complaint: SICK/BREATHING PROBLEMS Time Seen by Provider: 07/16/18 16:01 Source: Patient Mode of Arrival: Ambulatory Limitations: No limitations - History of Present Illness Initial Comments: pt was recently d/cd from hospital with copd and flu [4 days ago]. she now feels shes worse. MD Complaint: Shortness of breath -: Days(s) Consistency: Constant Improves With: Nothing Worsens With: Nothing Known History Of: COPD Associated Symptoms: Cough, Nausea/vomiting, Sputum production - Related Data Home Oxygen Therapy: Yes (2L) Home Oxygen Amount: 2 Liters Previous Rx's Medication Instructions Recorded Albuterol Sulfate [Ventolin Hfa] 1 - 2 puff IH .EVERY 4-6 HOURS PRN 12/03/14 #1 inhaler Oseltamivir Phosphate [Tamiflu] 75 mg PO BID #10 capsule 07/11/18 Allergies Allergy/AdvReac Type Severity Reaction Status Date / Time No Known Drug Allergies Allergy Verified 07/16/18 14:59 Travel Screening - Travel/Exposure Within Last 30 Days Have you traveled within the last 30 days?: No Review of Systems Reviewed: No additional complaints except as noted below Constitutional: Reports: As per HPI, Chills, Fever, Night sweats. Denies: Malaise, Weakness, Weight change Eyes: Reports: As per HPI. Denies: Eye discharge, Eye pain, Photophobia, Vision change ENT: Reports: As per HPI, Congestion. Denies: Dental pain, Ear pain, Epistaxis , Hearing loss, Throat pain Respiratory: Reports: As per HPI, Cough, Dyspnea, Wheezes. Denies: Hemoptysis, Stridor Cardiovascular: Reports: As per HPI. Denies: Arrhythmia, Chest pain, Dyspnea on exertion, Edema, Murmurs, Orthopnea, Palpitations, Paroxysmal nocturnal dyspnea, Rheumatic Fever, Syncope Endocrine: Reports: As per HPI. Denies: Fatigue, Heat or cold intolerance, Polydipsia, Polyuria Gastrointestinal: Reports: As per HPI. Denies: Abdominal pain, Constipation, Diarrhea, Hematemesis, Hematochezia, Melena, Nausea, Vomiting Genitourinary: Reports: As per HPI. Denies: Abnormal menses, Discharge, Dyspareunia, Dysuria, Frequency, Hematuria, Incontinence, Retention, Urgency Musculoskeletal: Reports: As per HPI. Denies: Arthralgia, Back pain, Gout, Joint swelling, Myalgia, Neck pain Skin: Reports: As per HPI. Denies: Bruising, Change in color, Change in hair/ nails, Lesions, Pruritus, Rash Neurological: Reports: As per HPI. Denies: Abnormal gait, Confusion, Headache, Numbness, Paresthesias, Seizure, Tingling, Tremors, Vertigo, Weakness Psychiatric: Reports: As per HPI. Denies: Anxiety, Auditory hallucinations, Depression, Homicidal thoughts, Suicidal thoughts, Visual hallucinations Hematological/Lymphatic: Reports: As per HPI. Denies: Anemia, Blood Clots, Easy bleeding, Easy bruising, Swollen glands Past Medical History - SOCIAL HISTORY Smoking Status: Former smoker Alcohol Use: None Drug Use: None - RESPIRATORY Hx Respiratory Disorders: Yes Hx Bronchitis: Yes Hx COPD: Yes Hx Dyspnea: Yes Hx Pneumonia: Yes - CARDIOVASCULAR Hx Cardio Disorders: Yes Hx Hypertension: Yes Hx Irregular Heartbeat: Yes Comment:: A-Fib - NEURO Hx Neuro Disorders: No - GI Hx GI Disorders: Yes Hx Reflux: Yes - Hx Genitourinary Disorders: No Comment:: left renal mass - ENDOCRINE Hx Endocrine Disorders: No - MUSCULOSKELETAL Hx Musculoskeletal Disorders: Yes - PSYCH Hx Psych Problems: Yes Hx Anxiety: Yes Hx Depression: Yes - HEMATOLOGY/ONCOLOGY Hx Hematology/Oncology Disorders: No Family Medical History Any Significant Family History?: Yes Hx Diabetes: Brother/Sister Hx Heart Disease: Mother Physical Exam - General General Appearance: Alert, Oriented x3, Cooperative, Mild distress - Head Head exam: Normal inspection - Eye Eye exam: Normal appearance, PERRL, EOMI Pupils: Normal accommodation - ENT ENT exam: Normal exam, Mucous membranes moist, Normal external ear exam, Normal orophraynx, TM's normal bilaterally Ear exam: Normal external inspection. negative: External canal tenderness Nasal Exam: Normal inspection. negative: Discharge, Sinus tenderness Mouth exam: Normal external inspection, Tongue normal Teeth exam: Normal inspection. negative: Dental caries Throat exam: Normal inspection. negative: Tonsillar erythema, Tonsillar exudate - Neck Neck exam: Normal inspection, Full ROM. negative: Tenderness - Respiratory Respiratory exam: Rales, Wheezes. negative: Respiratory distress - Cardiovascular Cardiovascular Exam: Regular rate, Normal rhythm, Normal heart sounds - GI/Abdominal GI/Abdominal exam: Soft, Normal bowel sounds. negative: Tenderness - Rectal Rectal exam: Deferred - exam: Deferred - Extremities Extremities exam: Normal inspection, Full ROM, Normal capillary refill. negative: Tenderness - Back Back exam: Reports: Normal inspection, Full ROM. Denies: Muscle spasm, Rash noted, Tenderness - Neurological Neurological exam: Alert, CN II-XII intact, Normal gait, Oriented X3 - Psychiatric Psychiatric exam: Normal affect, Normal mood - Skin Skin exam: Dry, Intact, Normal color, Warm Course Vital Signs 07/16/18 07/16/18 07/16/18 15:00 15:20 16:32 Temperature 97.8 F Pulse Rate 92 H 76 Pulse Rate [ 92 H Pulse Ox Probe] Respiratory 20 20 18 Rate Blood Pressure 135/107 Blood Pressure 139/93 [Left Arm] Pulse Ox 94 L 95 97 - Reevaluation(s) Reevaluation #1: 07/16/18 19:03 pt d/w dr ramires , concrete inspector, who stated pt could stay here to see how she does Medical Decision Making - Lab Data Result diagrams: 07/16/18 16:15 07/16/18 16:15 Lab Results 07/16/18 07/16/18 Range/Units 16:15 16:15 WBC 6.9 (4.2-12.2) K/uL RBC 3.44 L (3.80-5.40) M/uL Hgb 10.6 L (11.6-16.0) gm/dl Hct 35.8 (35.0-47.0) % MCV 104.1 H (81-97) fl MCH 30.8 (27-33) pg MCHC 29.6 L (32-36) g/dl RDW 12.4 (11.5-14.5) % Plt Count 251 (130-400) K/uL MPV 10.5 H (7.4-10.4) fl Gran % 73.5 (47-80) % Lymphocytes % 18.2 (16-45) % Monocytes % 6.6 (0-9) % Eosinophils % 1.6 (0-6) % Basophils % 0.1 (0-6) % D-Dimer 0.26 (0-0.59) mg/L FEU Disposition Disposition: Admit Clinical Impression: COPD exacerbation Renal failure (ARF), acute on chronic Qualifiers: Acute renal failure type: unspecified Chronic kidney disease stage: unspecified stage Qualified Code(s): N17.9 - Acute kidney failure, unspecified COPD (chronic obstructive pulmonary disease) Qualifiers: COPD type: COPD with acute exacerbation Qualified Code(s): J44.1 - Chronic obstructive pulmonary disease with (acute) exacerbation Disposition: Still a Patient at [facility] Decision to Admit: Admit from ER Decision to Admit Date: 07/16/18 Decision to Admit Time: 19:02 Forms: Patient Portal Access Quality - Quality Measures Quality Measures: N/A - Blood Pressure Screening Does Patient Have Any of the Following: No Blood Pressure Classification: Hypertensive Reading Systolic Measurement: 135 Diastolic Measurement: 107 Screening for High Blood Pressure: < Pre-Hypertensive BP, F/U Documented > [ [id number]] Pre-Hypertensive Follow-up Interventions: Follow-up with rescreen every year.
[2018-07-16] MEDS ORDERED: 0.9 % SODIUM CHLORIDE 1,000 ML BAG IV ONE (18:26)
[2018-07-16] MEDS ORDERED: ZOLPIDEM TARTRATE 5 MG TABLET PO PRN (19:38)
[2018-07-16] MEDS ORDERED: IPRATROPIUM/ALBUTEROL (0.5MG/3MG) NEB INH PRN (19:38)
[2018-07-16] MEDS ORDERED: ALBUTEROL SULFATE (0.083%) 2.5 MG/3 ML NEB INH PRN (19:38)
[2018-07-16] MEDS: ACETAMINOPHEN 500 MG TABLET PO PRN (20:09)
[2018-07-16] MEDS: OXYCODONE HCL 5 MG TABLET PO PRN (20:10)
[2018-07-16] MEDS: 0.9 % SODIUM CHLORIDE 1000ML 1,000 ML IV PRN (20:11)
[2018-07-16] MEDS: ATORVASTATIN 20 MG TABLET PO SCH (21:57)
[2018-07-16] MEDS: BUSPIRONE 5 MG TABLET PO SCH (21:58)
[2018-07-16] MEDS: APIXABAN 5MG TABLET PO SCH (21:59)
[2018-07-16] MEDS: METOPROLOL TART 25 MG TABLET PO SCH (21:59)
[2018-07-16] MEDS: TOPIRAMATE 25MG TABLET PO SCH (21:59)
[2018-07-16] MEDS ORDERED: Non-Formulary MISC (Blood Sugar Diagnostic [Test Strips] 1 EACH) MC SCH (22:00)
--- NOTE | 2018-07-17 06:28 | RADIOLOGY REPORT ---
EXAM: CHEST, TWO VIEWS HISTORY: SHORTNESS OF BREATH. TECHNIQUE: PA and lateral views of the chest were obtained. Comparison: Two view chest 07/08/18. FINDINGS: The heart size is normal. The lungs appear somewhat hyperinflated suggesting underlying COPD. No definite acute infiltrate seen. Mild spurring in the lower thoracic spine. IMPRESSION: 1. THE LUNGS APPEAR SOMEWHAT HYPERINFLATED SUGGESTING COPD. 2. NO DEFINITE ACUTE INFILTRATE SEEN. JOB NUMBER: [id number] [facility]
[2018-07-17] MEDS: PANTOPRAZOLE SODIUM 40 MG TABLET PO SCH (07:33)
[2018-07-17] MEDS: 0.9 % SODIUM CHLORIDE 1000ML 1,000 ML IV PRN ×2 (08:00→19:51)
[2018-07-17] MEDS: OXYCODONE HCL 5 MG TABLET PO PRN ×3 (08:02→22:14)
--- NOTE | 2018-07-17 09:16 | History & Physical ---
History of Present Illness - Date of Service Date of Service for History & Physical: 07/17/18 - History of Present Illness Admitting Diagnosis: renal failure acute on chronic, acute exacerbation of copd History of Present Illness: Mrs. Huffman is a 57 y/o female with recent admission to [facility] due to acute COPD exacerbation due to influenza. The patient says that her symptoms did improve for the first few days when she went home but yesterday she began to feel bad again and her breathing became more difficult. The patient denies cough, fevers or chills. She says that she just felt weak and thought that she should come back in to be evaluated. On arrival to the ED the patient's chest xray showed hyperinflation but no infiltrates, and she was maintaining saturations above 94 % on 3 liters nasal cannula. Labs drawn were not suggestive any acute infection and the patient is vitally stable. She is admitted to the medical floor for acute exacerbation of COPD. PCP: Chyna Jimenez NP. Travel Screening - Travel/Exposure Within Last 30 Days Have you traveled within the last 30 days?: No - Travel/Exposure Within Last Year Have you traveled outside the [place] in the last year?: No - Additonal Travel Details Have you been exposed to anyone with a communicable illness?: No - Travel Symptoms Symptom Screening: Headache, Lack of Appetite, Chills Review of Systems Constitutional: Reports: As per HPI, Chills, Fever, Night sweats. Denies: Malaise, Weakness, Weight change Eyes: Reports: As per HPI. Denies: Eye discharge, Eye pain, Photophobia, Vision change ENT: Reports: As per HPI, Congestion. Denies: Dental pain, Ear pain, Epistaxis , Hearing loss, Throat pain Respiratory: Reports: As per HPI, Cough, Dyspnea, Wheezes. Denies: Hemoptysis, Stridor Cardiovascular: Reports: As per HPI. Denies: Arrhythmia, Chest pain, Dyspnea on exertion, Edema, Murmurs, Orthopnea, Palpitations, Paroxysmal nocturnal dyspnea, Rheumatic Fever, Syncope Endocrine: Reports: As per HPI. Denies: Fatigue, Heat or cold intolerance, Polydipsia, Polyuria Gastrointestinal: Reports: As per HPI. Denies: Abdominal pain, Constipation, Diarrhea, Hematemesis, Hematochezia, Melena, Nausea, Vomiting Genitourinary: Reports: As per HPI. Denies: Abnormal menses, Discharge, Dyspareunia, Dysuria, Frequency, Hematuria, Incontinence, Retention, Urgency Musculoskeletal: Reports: As per HPI. Denies: Arthralgia, Back pain, Gout, Joint swelling, Myalgia, Neck pain Skin: Reports: As per HPI. Denies: Bruising, Change in color, Change in hair/ nails, Lesions, Pruritus, Rash Neurological: Reports: As per HPI. Denies: Abnormal gait, Confusion, Headache, Numbness, Paresthesias, Seizure, Tingling, Tremors, Vertigo, Weakness Psychiatric: Reports: As per HPI. Denies: Anxiety, Auditory hallucinations, Depression, Homicidal thoughts, Suicidal thoughts, Visual hallucinations Hematological/Lymphatic: Reports: As per HPI. Denies: Anemia, Blood Clots, Easy bleeding, Easy bruising, Swollen glands Past Medical History - SOCIAL HISTORY Smoking Status: Former smoker Alcohol Use: None Drug Use: None - RESPIRATORY Hx Respiratory Disorders: Yes Hx Bronchitis: Yes Hx COPD: Yes Hx Dyspnea: Yes Hx Pneumonia: Yes - CARDIOVASCULAR Hx Cardio Disorders: Yes Hx Abnormal EKG: Yes Hx Hypertension: Yes Hx Irregular Heartbeat: Yes Hx Pacemaker/Defib: No Comment:: A-Fib - NEURO Hx Neuro Disorders: Yes Hx Headaches: Yes - GI Hx GI Disorders: Yes Hx Reflux: Yes Hx Hiatal Hernia: Yes - Hx Genitourinary Disorders: No Hx Renal Disease: Yes (renal CA partial nephrectomy 2018) Hx UTI: Yes Comment:: left renal mass - ENDOCRINE Hx Endocrine Disorders: No Hx Diabetes: Yes - MUSCULOSKELETAL Hx Musculoskeletal Disorders: Yes Hx Arthritis: Yes Hx Back Injury: Yes - PSYCH Hx Psych Problems: Yes Hx Anxiety: Yes Hx Depression: Yes - HEMATOLOGY/ONCOLOGY Hx Hematology/Oncology Disorders: Yes Hx Anemia: Yes Hx Bruising: Yes (r/t elequis) Hx Cancer: Yes (renal) Hx Chemotherapy: No Hx Radiation Therapy: No Hx Blood Transfusions: Yes Hx Blood Transfusion Reaction: No Family Medical History Any Significant Family History?: Yes Hx Anxiety: Mother, Brother/Sister Hx Cancer: Father, Brother/Sister, Grandparents Hx Depression: Brother/Sister Hx Heart Disease: Mother, Brother/Sister Hx HTN: Mother Hx Kidney Disease: Brother/Sister H&P Meds/Allergies - Allergies Allergies: Allergies Allergy/AdvReac Type Severity Reaction Status Date / Time No Known Drug Allergies Allergy Verified 07/16/18 14:59 - Home Medications Home Medications Medication Instructions Recorded Confirmed Last Taken Azithromycin 250 mg PO DAILY 07/17/18 07/17/18 Unknown Previous Rx's Medication Instructions Recorded Albuterol Sulfate [Ventolin Hfa] 1 - 2 puff IH .EVERY 4-6 HOURS PRN 12/03/14 #1 inhaler Oseltamivir Phosphate [Tamiflu] 75 mg PO BID #10 capsule 07/11/18 - Active Medications Active Medications: Current Medications Acetaminophen (Tylenol 500mg Tab) 1,000 mg PO Q6H PRN PRN Reason: PAIN - MILD(1-4)/FEVER Last Admin: 07/16/18 20:09 Dose: 1,000 mg Albuterol Sulfate (Albuterol Sulfate) 2.5 mg INH RESP.Q4H PRN PRN Reason: DIFFICULTY IN BREATHING Albuterol/Ipratropium (Duoneb) 3 ml INH RESP.Q6H PRN PRN Reason: WHEEZING Apixaban (Eliquis) 5 mg PO BID [facility] Last Admin: 07/16/18 21:59 Dose: 5 mg Atorvastatin Calcium (Lipitor) 10 mg PO QHS [facility] Last Admin: 07/16/18 21:57 Dose: 10 mg Buspirone HCl (Buspar) 10 mg PO BID [facility] Last Admin: 07/16/18 21:58 Dose: 10 mg Duloxetine HCl (Cymbalta) 60 mg PO DAILY [facility] Sodium Chloride () 1,000 mls @ 100 mls/hr IV .Q10H PRN PRN Reason: LARGE VOLUME IV Last Admin: 07/17/18 08:00 Dose: 100 mls/hr Lisinopril (Zestril) 20 mg PO DAILY [facility] Methylprednisolone Sodium Succinate (Solu-Medrol) 60 mg IVP DAILY [facility] Metoprolol Tartrate (Lopressor) 25 mg PO BID [facility] Last Admin: 07/16/18 21:59 Dose: 25 mg Oxycodone HCl (Oxy Ir) 5 mg PO QID PRN PRN Reason: PAIN - MILD TO MODERATE (1-7) Last Admin: 07/17/18 08:02 Dose: 5 mg [facility] Last Admin: 07/17/18 07:33 Dose: 40 mg Roflumilast [ (Daliresp] 500 Mcg) 500 each PO DAILY [facility] Topiramate (Topiramate) 25 mg PO BID [facility] Last Admin: 07/16/18 21:59 Dose: 25 mg Zolpidem Tartrate (Ambien) 10 mg PO QHS PRN PRN Reason: INSOMNIA Physical Exam - Vital Signs Vital Signs: Vital Signs - Last 24 Hrs Temp Pulse Pulse Resp BP BP Pulse Ox 07/17/18 05:14 97.7 F 88 20 151/86 99 07/17/18 00:31 97.9 F 90 22 110/55 97 07/16/18 22:00 98.6 F 107 H 24 133/68 92 L 07/16/18 21:00 22 07/16/18 19:43 98.9 F 100 H 20 148/98 94 L 07/16/18 18:37 90 20 150/102 94 L 07/16/18 17:07 99 H 20 96 07/16/18 16:32 92 H 18 139/93 97 07/16/18 15:20 76 20 95 07/16/18 15:00 97.8 F 92 H 20 135/107 94 L - General General Appearance: Alert, Oriented x3, Cooperative, Mild distress Limitations: No limitations - Head Head exam: Normal inspection - Eye Eye exam: Normal appearance, PERRL, EOMI Pupils: Normal accommodation - ENT ENT exam: Normal exam, Mucous membranes moist, Normal external ear exam, Normal orophraynx, TM's normal bilaterally Ear exam: Normal external inspection. negative: External canal tenderness Nasal Exam: Normal inspection. negative: Discharge, Sinus tenderness Mouth exam: Normal external inspection, Tongue normal Teeth exam: Normal inspection. negative: Dental caries Throat exam: Normal inspection. negative: Tonsillar erythema, Tonsillar exudate - Neck Neck exam: Normal inspection, Full ROM. negative: Tenderness - Respiratory Respiratory exam: Rales, Wheezes. negative: Respiratory distress - Cardiovascular Cardiovascular Exam: Regular rate, Normal rhythm, Normal heart sounds - GI/Abdominal GI/Abdominal exam: Soft, Normal bowel sounds. negative: Tenderness - Rectal Rectal exam: Deferred - exam: Deferred - Extremities Extremities exam: Normal inspection, Full ROM, Normal capillary refill. negative: Tenderness - Back Back exam: Reports: Normal inspection, Full ROM. Denies: Muscle spasm, Rash noted, Tenderness - Neurological Neurological exam: Alert, CN II-XII intact, Normal gait, Oriented X3 - Psychiatric Psychiatric exam: Normal affect, Normal mood - Skin Skin exam: Dry, Intact, Normal color, Warm Results - Labs Result Diagrams: 07/16/18 16:15 07/17/18 06:38 Labs Last 24 Hours: Laboratory Results - last 24 hr 07/16/18 07/16/18 07/16/18 16:15 16:15 16:15 WBC 6.9 RBC 3.44 L Hgb 10.6 L Hct 35.8 MCV 104.1 H MCH 30.8 MCHC 29.6 L RDW 12.4 Plt Count 251 MPV 10.5 H Gran % 73.5 Lymphocytes % 18.2 Monocytes % 6.6 Eosinophils % 1.6 Basophils % 0.1 D-Dimer 0.26 Sodium 141 Potassium 5.0 H Chloride 102 Carbon Dioxide 28.0 Anion Gap 11.0 BUN 39 H Creatinine 3.1 H Estimated GFR 16 Random Glucose 109 Calcium 9.8 Total Bilirubin 0.20 AST 14 ALT 21 Alkaline Phosphatase 88 NT-Pro-B Natriuret Pep 547.60 H Total Protein 7.1 Albumin 3.7 L Globulin 3.4 Albumin/Globulin Ratio 1.1 07/17/18 06:38 WBC RBC Hgb Hct MCV MCH MCHC RDW Plt Count MPV Gran % Lymphocytes % Monocytes % Eosinophils % Basophils % D-Dimer Sodium 143 Potassium 4.9 H Chloride 107 Carbon Dioxide 28.0 Anion Gap 8.0 BUN 43 H Creatinine 3.0 H Estimated GFR 17 Random Glucose 100 Calcium 8.6 Total Bilirubin AST ALT Alkaline Phosphatase NT-Pro-B Natriuret Pep Total Protein Albumin Globulin Albumin/Globulin Ratio VTE H&P Assessment - Risk for VTE Risk for VTE: Yes Risk Level: High Risk Assessment Date: 07/17/18 Risk Assessment Time: 12:13 VTE Orders Placed or Will Be Placed: Yes Plan - Inpatient Certification Inpatient Certification: Admit to inpatient care: Based on my medical assessment, after consideration of patient's risk factors (age, co-morbidities and patient presenting symptoms and acuity), I expect that this patient will remain in the hospital greater than or equal to two midnights and that the services needed warrant inpatient care because: Patient Risk Factors: COPD exacerbation, CKD III, Estimated length of stay: 72 hours The patient may reasonably be expected to be discharged or transferred to a hospital within 96 hours after admission to [facility]. I certify that my determination is in accordance with my understanding of Medicare requirements for reasonable and necessary inpatient services. 07/17/18 12:13 - Detailed Diagnosis and Plan (1) COPD exacerbation Current Visit: Yes Status: Acute Base Code: J44.1 - CHRONIC OBSTRUCTIVE PULMONARY DISEASE W (ACUTE) EXACERBATION Comment: 07/17/18 - Xray chest unchanged since last admission. - WBCs WNL - Sats >95% on 4L, maintain sats > 92% at rest and while ambulating. - Daily Azithromycin 250mg PO QD, Duonebs Q4H, Albuterol Q4H PRN, Solumedrol 60mg QD (2) Requires continuous at home supplemental oxygen Current Visit: No Status: Acute Base Code: Z99.81 - DEPENDENCE ON SUPPLEMENTAL OXYGEN Comment: 07/17/18 - on 2 liters nasal cannula at home. (3) CKD (chronic kidney disease), stage IV Current Visit: No Status: Acute Base Code: N18.4 - CHRONIC KIDNEY DISEASE, STAGE 4 (SEVERE) Comment: 07/17/18 - S/P right nephrectomy - Bun/Cr: 43/3.0, baseline creatinine 2.0 - IVF @ 100mL/hr, hold MABEL inhibitor and other nephrotoxic medications. - To follow up with [facility] on 08/02. (4) DVT prophylaxis Current Visit: No Status: Acute Base Code: [id number] - Comment: 07/17/18 -Continue Eliquis 5mg PO BID (5) Full code status Current Visit: No Status: Acute Base Code: Z78.9 - OTHER SPECIFIED HEALTH STATUS Comment: 07/17/18 -Full code - Disposition Likely D/C home tomorrow with increased oxygen requirement to 3-4 liters.
[2018-07-17] MEDS: IPRATROPIUM/ALBUTEROL (0.5MG/3MG) NEB INH SCH ×4 (09:51→22:05)
[2018-07-17] MEDS ORDERED: LISINOPRIL 20 MG TABLET PO SCH (10:00)
[2018-07-17] MEDS: METOPROLOL TART 25 MG TABLET PO SCH ×2 (10:05→22:14)
[2018-07-17] MEDS: APIXABAN 5MG TABLET PO SCH ×2 (10:06→22:14)
[2018-07-17] MEDS: TOPIRAMATE 25MG TABLET PO SCH ×2 (10:06→22:16)
[2018-07-17] MEDS: BUSPIRONE 5 MG TABLET PO SCH ×2 (10:06→22:14)
[2018-07-17] MEDS: DULOXETINE HCL 30 MG CAPSULE.DR PO SCH (10:07)
[2018-07-17] MEDS: Roflumilast [Daliresp] 500 MCG PO SCH (10:10)
[2018-07-17] MEDS: METHYLPREDNISOLONE PF 125MG/VIAL IVP SCH (10:48)
[2018-07-17] MEDS: AZITHROMYCIN 250 MG TABLET PO SCH (10:53)
[2018-07-17] MEDS: ACETAMINOPHEN 500 MG TABLET PO PRN (19:49)
[2018-07-17] MEDS: ATORVASTATIN 20 MG TABLET PO SCH (22:15)
[2018-07-18] MEDS: IPRATROPIUM/ALBUTEROL (0.5MG/3MG) NEB INH SCH ×3 (06:20→13:50)
[2018-07-18] MEDS: PANTOPRAZOLE SODIUM 40 MG TABLET PO SCH (06:35)
[2018-07-18] MEDS: OXYCODONE HCL 5 MG TABLET PO PRN (06:38)
[2018-07-18] MEDS: ACETAMINOPHEN 500 MG TABLET PO PRN (06:39)
[2018-07-18] MEDS: 0.9 % SODIUM CHLORIDE 1000ML 1,000 ML IV PRN (06:40)
[2018-07-18 07:24] LABS: BASO % 0.1 % (0-6); EOS % 0.9 % (0-6); GRAN % 65.4 % (47-80); HEMATOCRIT 29.7 % (35.0-47.0); HEMOGLOBIN 9.2 gm/dl (11.6-16.0); LYMPH % 24.8 % (16-45); MEAN CELL VOLUME 104.9 fl (81-97); MEAN CORPUSCULAR HEMOGLOBIN 32.5 pg (27-33); MEAN PLATELET VOLUME 9.7 fl (7.4-10.4); MONO % 8.8 % (0-9); PLATELET COUNT 199 K/uL (130-400); RED BLOOD COUNT 2.83 M/uL (3.80-5.40); RED CELL DISTRIBUTION WIDTH 12.2 % (11.5-14.5); WHITE BLOOD COUNT W/O DIFF 6.7 K/uL (4.2-12.2)
[2018-07-18] MEDS ORDERED: BENZONATATE 100 MG CAPSULE PO PRN (10:34)
[2018-07-18] MEDS: DULOXETINE HCL 30 MG CAPSULE.DR PO SCH (10:59)
[2018-07-18] MEDS: BUSPIRONE 5 MG TABLET PO SCH (10:59)
[2018-07-18] MEDS: AZITHROMYCIN 250 MG TABLET PO SCH (11:00)
[2018-07-18] MEDS: METOPROLOL TART 25 MG TABLET PO SCH (11:00)
[2018-07-18] MEDS: APIXABAN 5MG TABLET PO SCH (11:00)
[2018-07-18] MEDS: TOPIRAMATE 25MG TABLET PO SCH (11:01)
[2018-07-18] MEDS: Roflumilast [Daliresp] 500 MCG PO SCH (11:03)
[2018-07-18] MEDS: METHYLPREDNISOLONE PF 125MG/VIAL IVP SCH (11:07)
[2018-07-18] MEDS ORDERED: PREDNISONE 20 MG TAB PO SCH (11:15)
--- NOTE | 2018-07-18 12:12 | Discharge Summary ---
Providers Discharge Summary Date: 07/18/18 Date of admission: 07/16/18 19:30 Attending physician: DALLIN KELLY Primary care physician: Chyna Jimenez N.P. Physical Exam - Vital Signs Vital Signs: Vital Signs - Last 24 Hrs Temp Pulse Pulse Resp BP BP Pulse Ox 07/18/18 10:15 86 18 94 L 07/18/18 09:45 97.3 F L 98 H 16 159/86 94 L 07/18/18 06:20 88 20 94 L 07/18/18 06:00 98.7 F 84 18 134/66 98 07/18/18 02:00 91 H 20 137/89 96 07/17/18 22:05 104 H 22 97 07/17/18 22:00 98.7 F 97 H 20 95 07/17/18 18:11 92 H 20 94 L 07/17/18 18:00 98.6 F 101 H 16 152/85 98 07/17/18 15:11 98.3 F 161/93 07/17/18 14:45 98 H 20 94 L 07/17/18 14:36 93 L 07/17/18 13:57 98.3 F 90 20 161/93 - General General Appearance: Alert, Oriented x3, Cooperative, Mild distress Limitations: No limitations - Head Head exam: Normal inspection - Eye Eye exam: Normal appearance, PERRL, EOMI Pupils: Normal accommodation - ENT ENT exam: Normal exam, Mucous membranes moist, Normal external ear exam, Normal orophraynx, TM's normal bilaterally Ear exam: Normal external inspection. negative: External canal tenderness Nasal Exam: Normal inspection. negative: Discharge, Sinus tenderness Mouth exam: Normal external inspection, Tongue normal Teeth exam: Normal inspection. negative: Dental caries Throat exam: Normal inspection. negative: Tonsillar erythema, Tonsillar exudate - Neck Neck exam: Normal inspection, Full ROM. negative: Tenderness - Respiratory Respiratory exam: Rales, Wheezes. negative: Respiratory distress - Cardiovascular Cardiovascular Exam: Regular rate, Normal rhythm, Normal heart sounds Peripheral Pulses: 3+: Radial (R), Radial (L), Dorsalis Pedis (R), Dorsalis Pedis (L) - GI/Abdominal GI/Abdominal exam: Soft, Normal bowel sounds. negative: Tenderness - Rectal Rectal exam: Deferred - exam: Deferred - Extremities Extremities exam: Normal inspection, Full ROM, Normal capillary refill. negative: Tenderness - Back Back exam: Reports: Normal inspection, Full ROM. Denies: Muscle spasm, Rash noted, Tenderness - Neurological Neurological exam: Alert, CN II-XII intact, Normal gait, Oriented X3 - Psychiatric Psychiatric exam: Normal affect, Normal mood - Skin Skin exam: Dry, Intact, Normal color, Warm Hospitalization - Hospitalization Admission Diagnosis: renal failure acute on chronic, acute exacerbation of copd - Problem List/Discharge Diagnosis (1) COPD exacerbation Current Visit: Yes Status: Acute Base Code: J44.1 - CHRONIC OBSTRUCTIVE PULMONARY DISEASE W (ACUTE) EXACERBATION Comment: 07/18/18 - Xray chest unchanged since last admission. WBCs WNL - Sats >95% on 2L, maintain sats > 92% at rest and while ambulating. - Daily Azithromycin 250mg PO QD, Duonebs Q4H, Albuterol Q4H PRN, Solumedrol 60mg QD discontinued and will start taperin dose of steroids over the next 5 days. (2) Requires continuous at home supplemental oxygen Current Visit: No Status: Acute Base Code: Z99.81 - DEPENDENCE ON SUPPLEMENTAL OXYGEN Comment: 07/18/18 - titrate oxygen to keep sats > 92% - back to baseline of 2 liters nasal cannula. (3) CKD (chronic kidney disease), stage IV Current Visit: No Status: Acute Base Code: N18.4 - CHRONIC KIDNEY DISEASE, STAGE 4 (SEVERE) Comment: 07/18/18 - S/P right nephrectomy - Bun/Cr: 43/3.0, baseline creatinine 2.0, stable Bun/Cr. - IVF @ 100mL/hr, hold MABEL inhibitor and other nephrotoxic medications. - To follow up with [facility] on 08/02. (4) DVT prophylaxis Current Visit: No Status: Acute Base Code: [id number] - Comment: 07/18/18 -Continue Eliquis 5mg PO BID (5) Full code status Current Visit: No Status: Acute Base Code: Z78.9 - OTHER SPECIFIED HEALTH STATUS Comment: 07/18/18 -Full code - Disposition Back to baseline oxygen of 2 liters. Follow up with PCP in 5-7 days. - Hospitalization Course Hospital Course: Mrs. Huffman is a 57 y/o female with recent admission to [facility] due to acute COPD exacerbation due to influenza. The patient says that her symptoms did improve for the first few days when she went home but yesterday she began to feel bad again and her breathing became more difficult. The patient denies cough, fevers or chills. She says that she just felt weak and thought that she should come back in to be evaluated. On arrival to the ED the patient's chest xray showed hyperinflation but no infiltrates, and she was maintaining saturations above 94 % on 3 liters nasal cannula. Labs drawn were not suggestive any acute infection and the patient is vitally stable. She is admitted to the medical floor for acute exacerbation of COPD. 07/17-07/18: The patient showed gradual improvement over the past 24 hours with oxygen titration to baseline of 2 liters/min. The patient still has some expiratory wheezing and complains of intermittent cough productive of white sputum. The patient's vitals have remained stable and her labs have been within normal limits with the exception of her kidney function which is presently at stage four failure. We have started her on Tessalon perles PRN and changed her to oral prednisone 60mg to be tapered upon discharge. 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 Procedures: Imaging and X-Rays 07/16/18 17:10 CXR [CHEST 2 VIEWS] [RAD] Stat Abnormal Labs: Abnormal Lab Results 07/16/18 07/16/18 07/17/18 Range/Units 16:15 16:15 06:38 RBC 3.44 L (3.80-5.40) M/uL Hgb 10.6 L (11.6-16.0) gm/dl Hct (35.0-47.0) % MCV 104.1 H (81-97) fl MCHC 29.6 L (32-36) g/dl MPV 10.5 H (7.4-10.4) fl Potassium 5.0 H 4.9 H (3.4-4.5) mmol/L BUN 39 H 43 H (6-20) mg/dL Creatinine 3.1 H 3.0 H (0.5-0.9) mg/dL NT-Pro-B Natriuret Pep 547.60 H (<125) pg/mL Albumin 3.7 L (4.0-5.0) g/dL 04/03/19 04/03/19 Range/Units 07:00 07:00 RBC 2.83 L (3.80-5.40) M/uL Hgb 9.2 L (11.6-16.0) gm/dl Hct 29.7 L (35.0-47.0) % MCV 104.9 H (81-97) fl MCHC 31.0 L (32-36) g/dl MPV (7.4-10.4) fl Potassium 4.6 H (3.4-4.5) mmol/L BUN 46 H (6-20) mg/dL Creatinine 3.0 H (0.5-0.9) mg/dL NT-Pro-B Natriuret Pep (<125) pg/mL Albumin (4.0-5.0) g/dL Discharge Medications - Discharge Medications Prescriptions: Benzonatate [Tessalon Perles] 100 mg PO TID PRN #15 capsule PRN Reason: Cough Prednisone [Prednisone 20Mg] 60 mg PO DAILYWM #9 tab Home Medications: Ambulatory Orders Albuterol Sulfate [Ventolin Hfa] 1 - 2 puff IH .EVERY 4-6 HOURS PRN #1 inhaler 12/03/14 [Last Taken 07/16/18] Roflumilast [Daliresp] 500 mcg PO DAILY tab 08/06/15 [Last Taken 07/16/18] Ferrous Sulfate [Iron] 325 mg PO DAILY 05/03/17 [Last Taken 1 Day Ago ~01/21/18] Tiotropium [place] [Spiriva Respimat] 2 inh INH DAILY 06/30/17 [Last Taken 07/16] Cholecalciferol (Vitamin D3) [Vitamin D3] 2,000 unit PO DAILY 01/22/18 [Last Taken 1 Day Ago ~01/21/18] Multivitamin [Multi-Vitamin Daily] 1 each PO DAILY 01/22/18 [Last Taken Unknown] Oxycodone HCl 5 mg PO QID PRN 01/22/18 [Last Taken 1 Day Ago ~01/21/18] Duloxetine HCl [Cymbalta] 60 mg PO DAILY 07/09/18 [Last Taken Unknown] Lisinopril 20 mg PO DAILY 07/09/18 [Last Taken 07/16/18] Topiramate [Topiramate ER] 25 mg PO BID 03/25/19 [Last Taken 07/16/18] Oseltamivir Phosphate [Tamiflu] 75 mg PO BID #10 capsule 07/11/18 [Last Taken ] Azithromycin 250 mg PO DAILY 07/17/18 [Last Taken Unknown] Benzonatate [Tessalon Perles] 100 mg PO TID PRN #15 capsule 07/18/18 [Last Taken Unknown] Prednisone [Prednisone 20Mg] 60 mg PO DAILYWM #9 tab 07/18/18 [Last Taken Unknown] Discharge Plan - Discharge Instructions Activity at Discharge: Wear Oxygen At All Times Diet at Discharge: Low Fat, Low Cholesterol Additional Instructions: Appointment with Chyna Jimenez at [facility] on Monday 07/24 at 1:40PM Prednisone tapering dose starting with 60mg today before discharge. You will continue prednisone for another 5 days and taper the dose as per instructions. 07/19: Prednisone 60mg /5: Prednisone 40mg 4/6: '' 40mg 4/7: 20mg 4/8 20mg Titrate your oxygen to keep sats above 92% at all times. Resume all other home medications as prescribed. Quality Measures - Quality Measures Quality Measures: Documentation of Current Medications in Medical Record, Screening for High Blood Pressure and F/U Documented - Current Medications Quality Measure: Measure #130: Documentation of Current Medications Documentation of Current Medications: <Current Medications Documented/Reviewed> [G8427] - Blood Pressure Screening Quality Measure: Screening for High Blood Pressure and Follow-Up Documented Does Patient Have Any of the Following: Active Dx of HTN Blood Pressure Classification: Hypertensive Reading Systolic Measurement: 161 Diastolic Measurement: 93 Screening for High Blood Pressure: Patient Exclusion, Hx of HTN [G9744] - Elder Abuse Suspicion Index EASI Reference Information: Ramses WEN, Jaye C, Kanchan D, Alicia Harrington.Development and validation of a tool to assist physicians identification of elder abuse: The Elder Abuse Suspicion Index (EASI ). Journal of Elder Abuse and Neglect, 2008; 20 (3): 276-300.
== END 2018-07-18 14:15 | disposition home or self-care (01) ==
LOC: ER 14:49 → INTOOBSV 19:30 → MEDSURG 19:30
PROVIDERS: ADMIT Internal Medicine; ATTEND Internal Medicine
DX: N18.4 Chronic kidney disease, stage 4 (severe) (principal); J44.1 Chronic obstructive pulmonary disease with (acute) exacerbation; I10 Essential (primary) hypertension; I48.91 Unspecified atrial fibrillation; Z79.01 Long term (current) use of anticoagulants; R06.00 Dyspnea, unspecified; K21.9 Gastro-esophageal reflux disease without esophagitis; Z99.81 Dependence on supplemental oxygen; Z87.891 Personal history of nicotine dependence
CPT/HCPCS: 99285 ×2; 96374; 85025 ×2; 80048 ×2; 80053; 85379; 83880; 71046; 94640 ×4; 94762; 94761; G0378 ×3; J7512; J3490 ×3; 99217; 99220; 99223; 99239; J2930; J7030

== ENCOUNTER 2018-12-19 15:22 | Emergency (ER) | payer MEDICAID ==
[2018-12-19] MEDS ORDERED: IPRATROPIUM/ALBUTEROL (0.5MG/3MG) NEB INH ONE (15:27)
[2018-12-19] MEDS ORDERED: 0.9 % SODIUM CHLORIDE 1000ML 1,000 ML IV PRN (15:53)
--- NOTE | 2018-12-19 15:56 | Emergency Department Record ---
History of Present Illness - General Chief Complaint: Difficulty Breathing Stated Complaint: DONA/HIGH BLOOD PRESSURE Time Seen by Provider: 12/19/18 15:26 Source: Patient, RN notes reviewed Mode of Arrival: Ambulatory - History of Present Illness Initial Comments: sob and coughing with purulent sputum which started 5 days ago. Home oxygen 2-3 liters per minute. oxygen therapy started 2011. PMH COPD stopped smoking 12 years ago 40 pack year history. Renal cancer and left kidney partiaally removed at [facility] one year ago. Onset/Timin -: Week(s) Improves With: Nothing Worsens With: Nothing Treatments Prior to Arrival: Bronchodilator - Related Data Home Oxygen Amount: 2 Liters Previous Rx's Medication Instructions Recorded Albuterol Sulfate [Ventolin Hfa] 1 - 2 puff IH .EVERY 4-6 HOURS PRN 12/03/14 #1 inhaler Doxycycline Hyclate 100 mg PO BID #20 cap 12/19/18 Prednisone [Prednisone 10Mg] 10 mg PO ASDIR #30 tab 12/19/18 Allergies Allergy/AdvReac Type Severity Reaction Status Date / Time No Known Drug Allergies Allergy Verified 12/19/18 15:38 Travel Screening - Travel/Exposure Within Last 30 Days Have you traveled within the last 30 days?: No - Travel/Exposure Within Last Year Have you traveled outside the [place] in the last year?: No - Additonal Travel Details Have you been exposed to anyone with a communicable illness?: No Review of Systems Reviewed: No additional complaints except as noted below Constitutional: Reports: As per HPI. Denies: Chills, Fever, Malaise, Night sweats, Weakness, Weight change Eyes: Reports: As per HPI. Denies: Eye discharge, Eye pain, Photophobia, Vision change ENT: Reports: As per HPI. Denies: Congestion, Dental pain, Ear pain, Epistaxis, Hearing loss, Throat pain Respiratory: Reports: As per HPI, Cough, Dyspnea, Wheezes. Denies: Hemoptysis, Stridor Cardiovascular: Reports: As per HPI. Denies: Arrhythmia, Chest pain, Dyspnea on exertion, Edema, Murmurs, Orthopnea, Palpitations, Paroxysmal nocturnal dyspnea, Rheumatic Fever, Syncope Endocrine: Reports: As per HPI. Denies: Fatigue, Heat or cold intolerance, Polydipsia, Polyuria Gastrointestinal: Reports: As per HPI. Denies: Abdominal pain, Constipation, Diarrhea, Hematemesis, Hematochezia, Melena, Nausea, Vomiting Genitourinary: Reports: As per HPI. Denies: Abnormal menses, Discharge, Dyspareunia, Dysuria, Frequency, Hematuria, Incontinence, Retention, Urgency Musculoskeletal: Reports: As per HPI. Denies: Arthralgia, Back pain, Gout, Joint swelling, Myalgia, Neck pain Skin: Reports: As per HPI. Denies: Bruising, Change in color, Change in hair/nails, Lesions, Pruritus, Rash Neurological: Reports: As per HPI. Denies: Abnormal gait, Confusion, Headache, Numbness, Paresthesias, Seizure, Tingling, Tremors, Vertigo, Weakness Psychiatric: Reports: As per HPI. Denies: Anxiety, Auditory hallucinations, Depression, Homicidal thoughts, Suicidal thoughts, Visual hallucinations Hematological/Lymphatic: Reports: As per HPI. Denies: Anemia, Blood Clots, Easy bleeding, Easy bruising, Swollen glands Past Medical History - SOCIAL HISTORY Smoking Status: Former smoker Alcohol Use: None Drug Use: None - RESPIRATORY Hx Respiratory Disorders: Yes Hx Bronchitis: Yes Hx COPD: Yes Hx Dyspnea: Yes Hx Pneumonia: Yes - CARDIOVASCULAR Hx Cardio Disorders: Yes Hx Abnormal EKG: Yes Hx Hypertension: Yes Hx Irregular Heartbeat: Yes Hx Pacemaker/Defib: No Comment:: A-Fib - NEURO Hx Neuro Disorders: Yes Hx Headaches: Yes - GI Hx GI Disorders: Yes Hx Reflux: Yes Hx Hiatal Hernia: Yes - Hx Genitourinary Disorders: No Hx Renal Disease: Yes (renal CA partial nephrectomy 2018) Hx UTI: Yes Comment:: left renal mass - ENDOCRINE Hx Endocrine Disorders: No Hx Diabetes: Yes - MUSCULOSKELETAL Hx Musculoskeletal Disorders: Yes Hx Arthritis: Yes Hx Back Injury: Yes - PSYCH Hx Psych Problems: Yes Hx Anxiety: Yes Hx Depression: Yes - HEMATOLOGY/ONCOLOGY Hx Hematology/Oncology Disorders: Yes Hx Anemia: Yes Hx Bruising: Yes (r/t elequis) Hx Cancer: Yes (renal) Hx Chemotherapy: No Hx Radiation Therapy: No Hx Blood Transfusions: Yes Hx Blood Transfusion Reaction: No Family Medical History Any Significant Family History?: No Hx Anxiety: Mother, Brother/Sister Hx Cancer: Father, Brother/Sister, Grandparents Hx Depression: Brother/Sister Hx Heart Disease: Mother, Brother/Sister Hx HTN: Mother Hx Kidney Disease: Brother/Sister Physical Exam - General General Appearance: Alert, Oriented x3, Cooperative, No acute distress - Head Head exam: Normal inspection - Eye Eye exam: Normal appearance, PERRL Pupils: Normal accommodation - ENT ENT exam: Normal exam, Mucous membranes moist, Normal external ear exam, Normal orophraynx, TM's normal bilaterally Ear exam: Normal external inspection. negative: External canal tenderness Nasal Exam: Normal inspection. negative: Discharge, Sinus tenderness Mouth exam: Normal external inspection, Tongue normal Teeth exam: Normal inspection. negative: Dental caries Throat exam: Normal inspection. negative: Tonsillar erythema, Tonsillar exudate - Neck Neck exam: Normal inspection, Full ROM. negative: Tenderness - Respiratory Respiratory exam: Wheezes. negative: Respiratory distress - Cardiovascular Cardiovascular Exam: Regular rate, Normal rhythm, Normal heart sounds - GI/Abdominal GI/Abdominal exam: Soft, Normal bowel sounds. negative: Tenderness - Rectal Rectal exam: Deferred - exam: Deferred - Extremities Extremities exam: Normal inspection, Full ROM, Normal capillary refill. negative: Tenderness - Back Back exam: Reports: Normal inspection, Full ROM. Denies: Muscle spasm, Rash noted, Tenderness - Neurological Neurological exam: Alert, Normal gait, Oriented X3, Reflexes normal - Psychiatric Psychiatric exam: Normal affect, Normal mood - Skin Skin exam: Dry, Intact, Normal color, Warm Course Vital Signs 12/19/18 12/19/18 15:25 15:27 Temperature 97.7 F Pulse Rate 63 66 Respiratory 20 20 Rate Blood Pressure 176/92 Pulse Ox 98 96 - Reevaluation(s) Reevaluation #1: 12/19/18 17:22 breathing better Medical Decision Making - Data Complexity MDM Data: Labs Ordered and/or Reviewed (wbc 4,200 creat 3.5), X-Ray Ordered and/or Reviewed (no infiltrates) - Lab Data Result diagrams: 12/19/18 14:30 12/19/18 14:30 Disposition Clinical Impression: COPD exacerbation, Bronchitis, CKD (chronic kidney disease), stage IV Disposition: Home, Self-Care Condition: (1) Good Instructions: Acute Bronchitis (ED), COPD (Chronic Obstructive Pulmonary Disease) (ED) Additional Instructions: follow up with family in one week use home nebulizer every 4 hours Prescriptions: Doxycycline Hyclate 100 mg PO BID #20 cap Prednisone [Prednisone 10Mg] 10 mg PO ASDIR #30 tab Forms: Patient Portal Access Time of Disposition: 17:28 Quality - Quality Measures Quality Measures: N/A - Blood Pressure Screening Does Patient Have Any of the Following: No Blood Pressure Classification: Hypertensive Reading Systolic Measurement: 176 Diastolic Measurement: 92 Screening for High Blood Pressure: < First Hypertensive BP, F/U Documented > [G8950] Pre-Hypertensive Follow-up Interventions: Referral to alternative/primary care provider. First Hypertensive Follow-up Interventions: Referral to alternative/primary care provider.
[2018-12-19 16:39] LABS: ABSOLUTE NEUTROPHIL COUNT 2.86; HEMOGLOBIN 8.8 gm/dl (11.6-16.0); MEAN CELL VOLUME 106.2 fl (81-97); MEAN CORPUSCULAR HEMOGLOBIN 30.1 pg (27-33); MEAN CORPUSCULAR HGB CONC 28.4 g/dl (32-36); PLATELET COUNT 195 K/uL (130-400); RED BLOOD COUNT 2.92 M/uL (3.80-5.40); RED CELL DISTRIBUTION WIDTH 12.8 % (11.5-14.5); WHITE BLOOD COUNT W/O DIFF 4.2 K/uL (4.2-12.2)
[2018-12-19 16:47] LABS: CREATININE 3.5 mg/dL (0.5-0.9)
[2018-12-19] MEDS ORDERED: METHYLPREDNISOLONE PF 125MG/VIAL IVP ONE (16:47)
[2018-12-19] MEDS ORDERED: DOXYCYCLINE HYCLATE 100 MG CAPSULE PO ONE (17:51)
--- NOTE | 2018-12-21 13:24 | RADIOLOGY REPORT ---
EXAM: CHEST, TWO VIEWS HISTORY: SHORTNESS OF BREATH, WHEEZING, COPD. TECHNIQUE: Two views of the chest were obtained. Comparison: 11/28/18. FINDINGS: The cardiomediastinal silhouette is normal in size. The pulmonary vasculature is not congested. The lungs are hyperinflated. No focal consolidation, pleural effusion, or pneumothorax is seen. IMPRESSION: NO EVIDENCE FOR PNEUMONIA OR PULMONARY EDEMA. JOB NUMBER: [id number] [facility]
== END 2018-12-19 18:05 | disposition home or self-care (01) ==
LOC: ER 15:22
DX: J44.1 Chronic obstructive pulmonary disease with (acute) exacerbation (principal); J20.9 Acute bronchitis, unspecified; J44.0 Chronic obstructive pulmonary disease with (acute) lower respiratory infection; I10 Essential (primary) hypertension; Z87.891 Personal history of nicotine dependence; Z99.81 Dependence on supplemental oxygen
CPT/HCPCS: 71046; 80048; 85027; 85730; 94640; 96374; 99284; J2930

== ENCOUNTER 2019-03-23 13:14 | Emergency (ER) | payer MEDICAID ==
[2019-03-23] MEDS ORDERED: METHYLPREDNISOLONE PF 125MG/VIAL IVP ONE (13:44)
[2019-03-23] MEDS ORDERED: IPRATROPIUM/ALBUTEROL (0.5MG/3MG) NEB INH ONE (13:44)
--- NOTE | 2019-03-23 13:50 | Emergency Department Record ---
History of Present Illness - General Chief Complaint: Shortness of breath Stated Complaint: DONA W/OXYGEN Time Seen by Provider: 03/23/19 13:44 Source: Patient, Family () Mode of Arrival: Ambulatory Limitations: No limitations - History of Present Illness Initial Comments: Pt to the ED from home with her for difficulty with breathing. Pt is home O2 dependant COPD. Not smoked for 12 years. Cough with sputum. No fever. Using home nebs without change. No current steroid use. No N/V/D. Pt with hx of renal disease but not dialysis. Had partial nephrectomy one year ago for renal cancer at . Onset/Timin -: Week(s) Severity scale (1-10): 8 Consistency: Constant Improves With: Nothing Worsens With: Exertion Known History Of: COPD Associated Symptoms: Cough, Sputum production Treatments Prior to Arrival: Asprin - Related Data Home Oxygen Therapy: Yes Home Oxygen Amount: 2 Liters Previous Rx's Medication Instructions Recorded Albuterol Sulfate [Ventolin Hfa] 1 - 2 puff IH .EVERY 4-6 HOURS PRN 12/03/14 #1 inhaler Allergies Allergy/AdvReac Type Severity Reaction Status Date / Time No Known Drug Allergies Allergy Verified 12/19/18 15:38 Travel Screening - Travel/Exposure Within Last 30 Days Have you traveled within the last 30 days?: No Review of Systems Constitutional: Denies: Chills, Fever, Malaise Eyes: Denies: Photophobia ENT: Reports: Congestion. Denies: Throat pain Respiratory: Reports: As per HPI, Cough, Dyspnea, Wheezes. Denies: Hemoptysis Cardiovascular: Denies: Chest pain, Syncope Endocrine: Denies: Fatigue, Polyuria Gastrointestinal: Denies: Abdominal pain, Diarrhea, Nausea, Vomiting Musculoskeletal: Denies: Back pain Skin: Denies: Bruising, Rash Neurological: Denies: Headache, Seizure Psychiatric: Denies: Anxiety Hematological/Lymphatic: Denies: Anemia Past Medical History - SOCIAL HISTORY Smoking Status: Former smoker - RESPIRATORY Hx Respiratory Disorders: Yes Hx Bronchitis: Yes Hx COPD: Yes Hx Dyspnea: Yes Hx Pneumonia: Yes - CARDIOVASCULAR Hx Cardio Disorders: Yes Hx Abnormal EKG: Yes Hx Hypertension: Yes Hx Irregular Heartbeat: Yes Hx Pacemaker/Defib: No Comment:: A-Fib - NEURO Hx Neuro Disorders: Yes Hx Headaches: Yes - GI Hx GI Disorders: Yes Hx Reflux: Yes Hx Hiatal Hernia: Yes - Hx Genitourinary Disorders: Yes Hx Renal Disease: Yes (renal CA partial nephrectomy 2018) Hx UTI: Yes Comment:: left renal mass - ENDOCRINE Hx Endocrine Disorders: No Hx Diabetes: Yes - MUSCULOSKELETAL Hx Musculoskeletal Disorders: Yes Hx Arthritis: Yes Hx Back Injury: Yes - PSYCH Hx Psych Problems: Yes Hx Anxiety: Yes Hx Depression: Yes - HEMATOLOGY/ONCOLOGY Hx Hematology/Oncology Disorders: Yes Hx Anemia: Yes Hx Bruising: Yes (r/t elequis) Hx Cancer: Yes (renal) Hx Chemotherapy: No Hx Radiation Therapy: No Hx Blood Transfusions: Yes Hx Blood Transfusion Reaction: No Family Medical History Any Significant Family History?: Yes Hx Anxiety: Mother, Brother/Sister Hx Cancer: Father, Brother/Sister, Grandparents Hx Depression: Brother/Sister Hx Heart Disease: Mother, Brother/Sister Hx HTN: Mother Hx Kidney Disease: Brother/Sister Physical Exam - General General Appearance: Alert, Oriented x3, Cooperative, Mild distress - Head Head exam: Atraumatic - Eye Eye exam: PERRL, EOMI - ENT ENT exam: Mucous membranes moist Ear exam: Normal external inspection Nasal Exam: Normal inspection Mouth exam: Normal external inspection - Neck Neck exam: Normal inspection, Full ROM. negative: Lymphadenopathy - Respiratory Respiratory exam: Decreased breath sounds, Prolonged expiratory, Rhonchi, Wheezes. negative: Respiratory distress - Cardiovascular Cardiovascular Exam: Regular rate, Normal rhythm. negative: Tachycardia Peripheral Pulses: 2+: Radial (R), Radial (L) - GI/Abdominal GI/Abdominal exam: Soft, Normal bowel sounds. negative: Tenderness - Extremities Extremities exam: Normal inspection. negative: Calf tenderness, Tenderness - Back Back exam: Reports: Normal inspection - Neurological Neurological exam: Alert, Normal gait, Oriented X3 - Psychiatric Psychiatric exam: Normal affect, Normal mood - Skin Skin exam: Normal color Course Vital Signs 03/23/19 13:18 Temperature 98.4 F Pulse Rate 77 Respiratory 20 Rate Blood Pressure 164/80 Pulse Ox 96 - Reevaluation(s) Reevaluation #1: 03/23/19 13:49 labs and XRay ordered. IV steroid and nebs. Reevaluation #2: 03/23/19 14:11 Pt Hb result is 6.2. Pt with no blood on rectal occult blood testing. No hx of recent bleeding vaginal, rectal, or other sites per her history. Pt had partial nephrectomy one year ago at for cancer kidney. No follow up chemo/rad needed. 03/23/19 14:14 Type and cross for transfusion. Reevaluation #3: 03/23/19 14:35 Pt in Acute on chronic renal failure. Established nephro care at [facility] with Dr. Leandra Kraft. Called transfer team at [facility]. Dr. Maher accepting. Procedures - EKG Initial Date: 03/23/19 Time: 14:40 EKG: Normal EKG (Short IN) Medical Decision Making - Lab Data Result diagrams: 03/23/19 13:00 03/23/19 13:00 Critical Care Time Critical Care Time: Yes Total Critical Care Time: 45 Critical Care Time: 45 minutes. Rechecks, transfusion, transfer calls Disposition Disposition: Transfer Clinical Impression: Symptomatic anemia, Renal failure (ARF), acute on chronic, COPD exacerbation Disposition: Acute Care Hospital Transfer Decision to Admit Date: 03/23/19 Decision to Admit Time: 14:34 Transfer To: [facility] Reason For Transfer: Nephrology care Accepting Physician: Dr. Maher Time Discussed w/Accepting Physician: 14:34 Condition: (3) Guarded Forms: Patient Portal Access Quality - Quality Measures Quality Measures: N/A - Blood Pressure Screening Does Patient Have Any of the Following: No Blood Pressure Classification: Pre-Hypertensive BP Reading Systolic Measurement: 164 Diastolic Measurement: 80 Screening for High Blood Pressure: Patient Exclusion, Hx of HTN [G9744]
[2019-03-23 13:55] LABS: ABSOLUTE NEUTROPHIL COUNT 4.65; HEMATOCRIT 21.4 % (35.0-47.0); MEAN CELL VOLUME 103.9 fl (81-97); MEAN PLATELET VOLUME 11.1 fl (7.4-10.4); PLATELET COUNT 196 K/uL (130-400); RED BLOOD COUNT 2.06 M/uL (3.80-5.40); WHITE BLOOD COUNT W/O DIFF 6.2 K/uL (4.2-12.2)
[2019-03-23 14:02] LABS: HEMOGLOBIN 6.2 gm/dl (11.6-16.0)
[2019-03-23 14:08] LABS: CREATININE 6.7 mg/dL (0.5-0.9)
[2019-03-23 14:13] LABS: HYPOCHROMIA 2+; PLATELET ESTIMATE NORMAL (NORMAL)
--- NOTE | 2019-03-23 14:47 | RADIOLOGY REPORT ---
EXAMINATION: Two View Chest Radiographs EXAM DATE: 03/23/2019 2:44 PM TECHNIQUE: Frontal and lateral views INDICATION: COPD with cough COMPARISON: March 162018 ENCOUNTER: Not applicable FINDINGS: No focal consolidation. No effusion or pneumothorax. Atheromatous changes involve the cardiothoracic silhouette. Dens appear mildly hyperexpanded. IMPRESSION: No focal consolidation. Dictated by: Preston Villasenor MD on 03/23/2019 2:43 PM. .
[2019-03-23 14:58] LABS: ABO GROUP A; ANTIBODY SCREEN NEGATIVE (NEGATIVE); IMMED. SPIN CROSSMATCH COMPATIBLE; RH TYPE POSITIVE
== END 2019-03-23 17:35 | disposition short-term general hospital (02) ==
LOC: ER 13:14
DX: D64.9 Anemia, unspecified (principal); E11.22 Type 2 diabetes mellitus with diabetic chronic kidney disease; I12.9 Hypertensive chronic kidney disease with stage 1 through stage 4 chronic kidney disease, or unspecified chronic kidney disease; N18.9 Chronic kidney disease, unspecified; N17.9 Acute kidney failure, unspecified; J44.1 Chronic obstructive pulmonary disease with (acute) exacerbation; Z87.891 Personal history of nicotine dependence; I10 Essential (primary) hypertension; I48.91 Unspecified atrial fibrillation; E11.9 Type 2 diabetes mellitus without complications; Z85.53 Personal history of malignant neoplasm of renal pelvis
CPT/HCPCS: 99285 ×2; 36430; 96374; 80048; 85027; 86900; 86901; 86850; 71046; 94640; 93005; 93010; P9016; J2930